=== PATIENT | male | born 1965 | race Caucasian/White ===

== ENCOUNTER 2016-02-27 20:20 | Observation (INO) | payer MEDICAID, MEDICARE ==
[~2016-02-27] VITALS: Ht 170.2 cm; Wt 81.0 kg
[~2016-02-27 20:20] MED LIST: DIAZ10TA PO; DOXA4; METO25CR PO; PRED20 PO
[2016-02-27 20:26] VITALS: BP 157/93; PULSE 89; RESP 16; TEMP 97.9; O2SAT 96
--- NOTE | 2016-02-27 22:25 | PD ---
HPI Chief Complaint: Pain: Acute or Chronic Time Seen by Provider: 22:12 Travel History International Travel<30 days: No Contact w/Intl Traveler<30days: No Traveled to known affect area: No History of Present Illness HPI This is a 50-year-old male smoker with history of hypertension, high cholesterol , tobacco use who presents for evaluation of chest pain. For the past 3 weeks patient has had a midsternal chest pain that radiates into the back. The pain is a sharp pain is worse with movement, inspiration. He has tried using over- the-counter NSAIDs but symptoms persist which prompted evaluation. He endorses dyspnea. He does endorse a slight cough that he has had for 3 months. He denies recent travel, recent surgery. He notes that he was recently incarcerated and was let out of [facility] 6 months ago. He denies any known personal history of coronary artery disease but he doesn't have any sort of outpatient follow-up. Denies any history of PE or DVT. No known history of aortic aneurysm. Denies any calf swelling. He does note positive family history for coronary artery disease with a sister dying of an ME in her 30s. He has no other complaints at this time. PFSH Past Medical History Arthritis: No Asthma: No Autoimmune Disease: No Blood Disorders: No Depression: Yes Heart Rhythm Problems: No Cancer: No Cardiovascular Problems: Yes (HTN) High Cholesterol: No Chest Pain: No Congestive Heart Failure: No COPD: No Cerebrovascular Accident: No Diabetes: No Diminished Hearing: No Endocrine: No Gastrointestinal Disorders: Yes GERD: Yes Genitourinary: Yes (IMPLANTED BLLADDER STIMULATOR) Headaches: Yes Hepatitis: No Hiatal Hernia: No Hypertension: Yes Immune Disorder: No Implanted Vascular Access Dvce: Yes Kidney Stones: No Medical other: Yes (interstitional cystitis) Musculoskeletal: Yes Neurologic: Yes Psychiatric: No Reproductive: No Respiratory: No Integumentary: No Immunizations Current: Yes Migraines: No Renal Failure: No Seizures: No Sleep Apnea: No Thyroid Disease: No Ulcer: No Tetanus Vaccination: < 5 Years Influenza Vaccination: Yes PNEUMOCCOCAL Vaccine (Year): 2 Past Surgical History Abdominal Surgery: Yes AICD: No Arteriovenous Shunt: No Body Medical Devices: BLADDER STIMULATOR Cardiac Surgery: No Ear Surgery: No Endocrine Surgery: No Eye Surgery: No Genitourinary Surgery: Yes (interstitional implant) Gynecologic Surgery: No Insulin Pump: No Joint Replacement: No Neurologic Surgery: No Oral Surgery: Yes (tonsillectomy) Pacemaker: No Thoracic Surgery: No Other Surgery: Yes (RT FOOT, LEFT ELBOW, LEFT THUMB,LEFT LEG) Social History Alcohol Use: Yes (SOCIALLY) Tobacco Use: Yes Substance Use: No Allergies-Medications (Allergen,Severity, Reaction): Coded Allergies: Methadone (Verified Allergy, Severe, NAUSEA AND VOMITING AND RASH, 02/27/16) Celebrex (Verified Allergy, Unknown, UNKNOWN REACTION, 02/27/16) Sulfa (Verified Allergy, Unknown, UNKNOWN REACTION, 02/27/16) Voltaren (Verified Allergy, Unknown, KRAS4FO REACTION, 02/27/16) Codeine (Verified Adverse Reaction, Severe, NAUSEA AND VOMITING, 02/27/16) Penicillin (Verified Adverse Reaction, Severe, NAUSEA AND VOMITING, 02/27/16 ) Reported Meds & Prescriptions Reported Meds & Active Scripts Active Review of Systems Except as stated in HPI: all other systems reviewed are Neg Physical Exam Narrative GENERAL: Well-developed well-nourished male in no acute distress. SKIN: Warm and dry. HEAD: Atraumatic. Normocephalic. EYES: Pupils equal and round. No scleral icterus. No injection or drainage. ENT: No nasal bleeding or discharge. Mucous membranes pink and moist. NECK: Trachea midline. No JVD. CARDIOVASCULAR: Regular rate and rhythm. No murmur appreciated. RESPIRATORY: No accessory muscle use. Clear to auscultation. Breath sounds equal bilaterally. There are no crackles, no wheezing, no rhonchi GASTROINTESTINAL: Abdomen soft, non-tender, nondistended. Hepatic and splenic margins not palpable. MUSCULOSKELETAL: No obvious deformities. There is nonspecific tenderness to palpation along the mid back and mid chest. No focal abnormalities present. There is no lower extremity edema. NEUROLOGICAL: Awake and alert. No obvious cranial nerve deficits. Motor grossly within normal limits. Normal speech. Data Data Last Documented VS Vital Signs Date Time Temp Pulse Resp B/P Pulse Ox O2 Delivery O2 Flow Rate FiO2 02/28/16 01:20 82 16 142/86 96 Room Air 02/27/16 20:26 97.9 Orders Electrocardiogram (02/27/16 22:18) Basic Metabolic Panel (Bmp) (02/27/16 22:18) Ckmb (Isoenzyme) Profile (02/27/16 22:18) Complete Blood Count With Diff (02/27/16 22:18) Magnesium (Mg) (02/27/16 22:18) Prothrombin Time / Inr (Pt) (02/27/16 22:18) Act Partial Throm Time (Ptt) (02/27/16 22:18) Troponin I (02/27/16 22:18) Chest, Single Ap (02/27/16 22:18) Ecg Monitoring (02/27/16 22:18) Bilateral Bp Monitoring (02/27/16 22:18) Iv Access Insert/Monitor (02/27/16 22:18) Oximetry (02/27/16 22:18) Oxygen Administration (02/27/16 22:18) Aspirin Chew (Aspirin Chew) (02/27/16 22:30) Sodium Chloride 0.9% Flush (Ns Flush) (02/27/16 22:30) CKMB (02/27/16 22:30) CKMB% (02/27/16 22:30) Ct Pulmonary Angiogram (02/28/16 22:18) Iohexol 350 Inj (Omnipaque 350 Inj) (02/28/16 00:57) Admit Order (Ed Use Only) (02/28/16 01:23) Activity Bed Rest With Brp (02/28/16 01:23) Vital Signs (Adult) Q4H (02/28/16 01:23) Cardiac Rhythm .As Directed (02/28/16 01:23) ^ Notify Dr: Other .PRN (02/28/16 01:23) ^ Notify DrAdrienne Parameters (02/28/16 01:23) Resp Oxygen Nasal Cannula (02/28/16 ) Ckmb (Isoenzyme) Profile (02/28/16 01:23) Ckmb (Isoenzyme) Profile (02/28/16 04:23) Troponin I (02/28/16 01:23) Troponin I (02/28/16 04:23) Electrocardiogram (02/28/16 01:23) Electrocardiogram (02/28/16 04:23) ^ Obtain (02/28/16 01:23) Sodium Chloride 0.9% Flush (Ns Flush) (02/28/16 01:30) Sodium Chloride 0.9% Flush (Ns Flush) (02/28/16 09:00) Morphine Inj (Morphine Inj) (02/28/16 01:30) Labs Laboratory Tests Test 02/27/16 22:30 White Blood Count 6.9 TH/MM3 Red Blood Count 4.43 MIL/MM3 Hemoglobin 14.1 GM/DL Hematocrit 40.6 % Mean Corpuscular Volume 91.6 FL Mean Corpuscular Hemoglobin 31.7 PG Mean Corpuscular Hemoglobin 34.7 % Concent Red Cell Distribution Width 14.1 % Platelet Count 170 TH/MM3 Mean Platelet Volume 8.2 FL Neutrophils (%) (Auto) 62.2 % Lymphocytes (%) (Auto) 29.4 % Monocytes (%) (Auto) 6.5 % Eosinophils (%) (Auto) 1.0 % Basophils (%) (Auto) 0.9 % Neutrophils # (Auto) 4.3 TH/MM3 Lymphocytes # (Auto) 2.0 TH/MM3 Monocytes # (Auto) 0.4 TH/MM3 Eosinophils # (Auto) 0.1 TH/MM3 Basophils # (Auto) 0.1 TH/MM3 CBC Comment DIFF FINAL Differential Comment Prothrombin Time 10.0 SEC Prothromb Time International 0.9 RATIO Ratio Activated Partial 26.8 SEC Thromboplast Time Sodium Level 137 MEQ/L Potassium Level 3.8 MEQ/L Chloride Level 104 MEQ/L Carbon Dioxide Level 24.8 MEQ/L Anion Gap 8 MEQ/L Blood Urea Nitrogen 16 MG/DL Creatinine 0.88 MG/DL Estimat Glomerular Filtration 91 ML/MIN Rate Random Glucose 111 MG/DL Calcium Level 8.9 MG/DL Magnesium Level 2.2 MG/DL Total Creatine Kinase 104 U/L Creatine Kinase MB LESS THAN 0.5 NG/ML Troponin I LESS THAN 0.02 NG/ML MDM Medical Decision Making Medical Screen Exam Complete: Yes Emergency Medical Condition: Yes Medical Record Reviewed: Yes Interpretation(s) EKG NSR, t wave inversions v1, v2 Chest x-ray wnl CBC wnl BMP wnl CK negative Troponin negative CT pulmonary angiogram CONCLUSION: Normal examination. Differential Diagnosis Pleurisy, costochondritis, pneumothorax, hemothorax, pericarditis, myocarditis, pulmonary embolism, aortic dissection, acute coronary syndrome, angina, bronchitis, pneumonia Narrative Course This is a 50-year-old male smoker with history of high cholesterol, hypertension who presents for evaluation of 3 weeks of chest pain that radiates into the back, dyspnea. Pain is worse with movement, inspiration. He does know that a cough for the past 3 months as well. IV will be established, the patient will be placed on ECG monitoring and pulse oximetry, 12-lead EKG will be pain. Chest x-ray, basic lab work, CT pulmonary angiogram will be ordered to evaluate this patient's symptoms. Full dose aspirin has been ordered. The patient's lab work and imaging studies have been reviewed and found to be reassuring. The patient has had a three-week duration of pain in the chest radiating into the back, certainly atypical for acute coronary syndrome however given his risk factors for cardiac disease, the plan is to admit the patient into the chest pain center for serial cardiac enzymes and rule out purposes. The patient is agreeable. I discussed with my attending who agrees with plan of care. Procedures EKG Prior to Arrival: Yes Diagnosis Primary Impression: Chest pain Qualified Code: R07.9 - Chest pain, unspecified type Admitting Information Admitting Physician Requests: Observation Mando Olivo Feb 27, 2016 22:25
[2016-02-27] MEDS ORDERED: ASPIRIN 81 MG CHEW TAB PO ONE (22:30)
[2016-02-27] MEDS ORDERED: SODIUM CHLORIDE 0.9% FLUSH 5 ML FLUSH IVF PRN (22:30)
[2016-02-27 22:49] LABS: AUTOMATED NEUTROPHIL # 4.3 TH/MM3 (1.8-7.7); BASOPHIL # 0.1 TH/MM3 (0-0.2); BASOPHIL % 0.9 % (0.0-2.0); EOSINOPHIL # 0.1 TH/MM3 (0-0.4); HEMATOCRIT 40.6 % (39.0-51.0); HEMO FLAGS DIFF FINAL; LYMPH % 29.4 % (9.0-44.0); MEAN CELL VOLUME 91.6 FL (80.0-100.0); MEAN CORPUSCULAR HEMOGLOBIN 31.7 PG (27.0-34.0); MEAN CORPUSCULAR HGB CONC 34.7 % (32.0-36.0); MONO % 6.5 % (0.0-8.0); NEUT % 62.2 % (16.0-70.0); PLATELET COUNT 170 TH/MM3 (150-450); RED BLOOD COUNT 4.43 MIL/MM3 (4.50-5.90); RED CELL DISTRIBUTION WIDTH 14.1 % (11.6-17.2); WHITE BLOOD COUNT 6.9 TH/MM3 (4.0-11.0)
--- NOTE | 2016-02-27 22:54 | RADRPT ---
EXAM DATE/TIME: 02/27/2016 22:40 [facility] COMPARISON: No previous studies available for comparison. INDICATIONS : Patient states pain in back and chest for a week. MEDICAL HISTORY : None. SURGICAL HISTORY : None. ENCOUNTER: Initial ACUITY: 1 week PAIN SCORE: 6/10 LOCATION: Bilateral chest FINDINGS: A single view of the chest demonstrates the lungs to be symmetrically aerated without evidence of mas s, infiltrate or effusion. The cardiomediastinal contours are unremarkable. Osseous structures are intact. CONCLUSION: No acute disease. Van Mcnamara MD on February 27, 2016 at 22:52 Board Certified Radiologist. This report was verified electronically.
[2016-02-27 23:03] VITALS: RESP 16
[2016-02-27 23:12] LABS: ANION GAP 8 MEQ/L (5-15); BICARBONATE 24.8 MEQ/L (21.0-32.0); BLOOD UREA NITROGEN 16 MG/DL (7-18); CHLORIDE 104 MEQ/L (98-107); GLOMERULAR FILTRATION RATE 91 ML/MIN (>89); MAGNESIUM 2.2 MG/DL (1.5-2.5); POTASSIUM 3.8 MEQ/L (3.5-5.1); SODIUM (NA) 137 MEQ/L (136-145)
[2016-02-27 23:16] LABS: APTT (PATIENT) 26.8 SEC (24.3-30.1); INTERNATIONAL NORMALIZED RATIO 0.9 RATIO
[2016-02-27 23:17] LABS: CREATINE KINASE 104 U/L (39-308)
[2016-02-27 23:29] LABS: CKMB LESS THAN 0.5 NG/ML (0.5-3.6)
[2016-02-28] MEDS ORDERED: IOHEXOL 350 MG/ML 10 ML VIAL (for RAD DIAG) IV ONE (00:57)
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
[2016-02-28 01:20] VITALS: BP 142/86; PULSE 82; RESP 16; O2SAT 96
[2016-02-28] MEDS ORDERED: MORPHINE SULFATE 4 MG/ML INJ IV PUSH ONE (01:30)
[2016-02-28] MEDS ORDERED: SODIUM CHLORIDE 0.9% FLUSH 5 ML FLUSH IVF PRN (01:30)
[2016-02-28 02:14] LABS: CREATINE KINASE 89 U/L (39-308)
[2016-02-28 02:28] VITALS: O2SAT 96
[2016-02-28 04:52] LABS: CREATINE KINASE 90 U/L (39-308)
[2016-02-28 05:02] VITALS: BP 124/83; PULSE 86; RESP 18; O2SAT 97
[2016-02-28 07:00] VITALS: BP 119/79; PULSE 87; RESP 16; TEMP 98.2; O2SAT 98
[2016-02-28 08:16] VITALS: O2SAT 97
[2016-02-28] MEDS ORDERED: SODIUM CHLORIDE 0.9% FLUSH 5 ML FLUSH IVF SCH (09:00)
[2016-02-28] MEDS ORDERED: CYCL1TAB29 PO (10:19)
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
[2016-02-28] MEDS ORDERED: CYCLOBENZAPRINE HCL 10 MG TAB PO ONE (10:30)
[2016-02-28 11:04] VITALS: BP 127/78
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
--- NOTE | 2016-02-28 13:15 | EKG ---
Date Performed: 02/28/2016 Time Performed: 04:14:59 PTAGE: 50 years EKG: NORMAL Sinus rhythm PREVIOUS TRACING : 02/28/2016 01.32 Since previous tracing, no significant change noted DOCTOR: Victoriano Delgado Interpretating Date/Time 02/28/2016 13:14:00
--- NOTE | 2016-02-28 13:17 | EKG ---
Date Performed: 02/28/2016 Time Performed: 01:32:20 PTAGE: 50 years EKG: NORMAL Sinus rhythm PREVIOUS TRACING : 02/27/2016 22.31 Since previous tracing, no significant change noted DOCTOR: Victoriano Delgado Interpretating Date/Time 02/28/2016 13:16:25
--- NOTE | 2016-02-28 13:18 | EKG ---
Date Performed: 02/27/2016 Time Performed: 22:31:24 PTAGE: 50 years EKG: Sinus rhythm POSSIBLE LEFT ATRIAL ENLARGEMENT BORDERLINE ECG PREVIOUS TRACING : 02/27/2016 22.29 Since previous tracing, no significant change noted DOCTOR: Victoriano Delgado Interpretating Date/Time 02/28/2016 13:18:09
== END 2016-02-28 11:17 | disposition home or self-care (01) ==
LOC: NEPB 20:20 → NEDA 02-28 01:25
PROVIDERS: ADMIT Internal Medicine Interventional Cardiology; ATTEND Internal Medicine Interventional Cardiology
DX: R07.9 Chest pain, unspecified (principal); F17.200 Nicotine dependence, unspecified, uncomplicated; I10 Essential (primary) hypertension; E78.00 Pure hypercholesterolemia, unspecified; R06.00 Dyspnea, unspecified; R05 Cough; K21.9 Gastro-esophageal reflux disease without esophagitis
CPT/HCPCS: 71010; 71275; 80048; 82550; 82552; 83735; 84484; 85025; 85610; 85730; 93005; 99285; G0378; J2270; Q9967

== ENCOUNTER 2016-07-20 19:07 | Inpatient (IN) | payer MEDICARE, MEDICAID ==
[~2016-07-20] VITALS: Ht 170.2 cm; Wt 84.9 kg
[~2016-07-20 19:07] MED LIST changes: +CYCL1TAB29 PO; -DIAZ10TA PO; -DOXA4; -METO25CR PO; -PRED20 PO
[2016-07-20 19:21] VITALS: BP 128/82; PULSE 116; RESP 18; TEMP 102; O2SAT 98
[2016-07-20 19:50] VITALS: BP 128/82; PULSE 116; RESP 18; TEMP 102; O2SAT 98
--- NOTE | 2016-07-20 20:03 | PD ---
HPI Chief Complaint: Foreign Body Time Seen by Provider: 19:59 Travel History International Travel<30 days: No Contact w/Intl Traveler<30days: No Traveled to known affect area: No History of Present Illness HPI The patient is a 51-year-old male that complains of pain slight swelling in the left forearm for 3 days. He states he may have got a piece of metal in the left forearm. He said it formed an abscess and he squeezed the pus out of it. He has cellulitis surrounding the area. Of the left forearm dorsally. His right lower leg has been swelling for over 2 months. He states it just won't heal. He does have a history of cocaine, benzodiazepine and opiate abuse. He does not drink alcohol and does not have a history of diabetes. PFSH Past Medical History Arthritis: No Asthma: No Autoimmune Disease: No Blood Disorders: No Depression: Yes Heart Rhythm Problems: No Cancer: No Cardiovascular Problems: Yes (HTN) High Cholesterol: No Chest Pain: No Congestive Heart Failure: No COPD: No Cerebrovascular Accident: No Diabetes: No Diminished Hearing: No Endocrine: No Gastrointestinal Disorders: Yes GERD: Yes Genitourinary: Yes (IMPLANTED BLLADDER STIMULATOR) Headaches: Yes Hepatitis: No Hiatal Hernia: No Hypertension: Yes Immune Disorder: No Implanted Vascular Access Dvce: Yes Kidney Stones: No Musculoskeletal: Yes Neurologic: Yes Psychiatric: No Reproductive: No Respiratory: No Integumentary: No Immunizations Current: Yes Migraines: No Renal Failure: No Seizures: No Sleep Apnea: No Thyroid Disease: No Ulcer: No PNEUMOCCOCAL Vaccine (Year): 2 Past Surgical History Abdominal Surgery: Yes AICD: No Arteriovenous Shunt: No Body Medical Devices: BLADDER STIMULATOR Cardiac Surgery: No Ear Surgery: No Endocrine Surgery: No Eye Surgery: No Genitourinary Surgery: Yes (interstitional implant) Gynecologic Surgery: No Insulin Pump: No Joint Replacement: No Neurologic Surgery: No Oral Surgery: Yes (tonsillectomy) Pacemaker: No Thoracic Surgery: No Other Surgery: Yes (RT FOOT, LEFT ELBOW, LEFT THUMB,LEFT LEG) Social History Alcohol Use: Yes (SOCIALLY) Tobacco Use: Yes Substance Use: No Allergies-Medications (Allergen,Severity, Reaction): Coded Allergies: Methadone (Verified Allergy, Severe, NAUSEA AND VOMITING AND RASH, 02/27/16) Celebrex (Verified Allergy, Unknown, UNKNOWN REACTION, 02/27/16) Sulfa (Verified Allergy, Unknown, UNKNOWN REACTION, 02/27/16) Voltaren (Verified Allergy, Unknown, [id number] REACTION, 02/27/16) Codeine (Verified Adverse Reaction, Severe, NAUSEA AND VOMITING, 02/27/16) Penicillin (Verified Adverse Reaction, Severe, NAUSEA AND VOMITING, 02/27/16 ) Reported Meds & Prescriptions Reported Meds & Active Scripts Active Reported Amitriptyline (Amitriptyline HCl) 25 Mg Tab 25 Mg PO HS Wellbutrin Xl 24 HR (Bupropion HCl) 150 Mg Tab 150 Mg PO DAILY Valium (Diazepam) 10 Mg Tab 10 Mg PO BID PRN Review of Systems Except as stated in HPI: all other systems reviewed are Neg Physical Exam Narrative GENERAL: Well-nourished, well-developed patient in moderate apparent distress with his left forearm discomfort. His vital signs show temperature 102, heart rate of 116, blood pressure 128/82 but otherwise normal. SKIN: Focused skin assessment warm/dry. HEAD: Normocephalic. EYES: No scleral icterus. No injection or drainage. NECK: Supple, trachea midline. No JVD or lymphadenopathy. CARDIOVASCULAR: Regular rate and rhythm without murmurs, gallops, or rubs. RESPIRATORY: Breath sounds equal bilaterally. No accessory muscle use. GASTROINTESTINAL: Abdomen soft, non-tender, nondistended. MUSCULOSKELETAL: No cyanosis, or edema. BACK: Nontender without obvious deformity. No CVA tenderness. Data Data Last Documented VS Vital Signs Date Time Temp Pulse Resp B/P Pulse Ox O2 Delivery O2 Flow Rate FiO2 07/20/16 20:39 91 18 126/87 98 Room Air 07/20/16 19:50 102.0 Orders Forearm (2vws) (07/20/16 20:00) Tibia/Fibula (Ap/Lat) (07/20/16 20:00) Complete Blood Count With Diff (07/20/16 20:07) Comprehensive Metabolic Panel (07/20/16 20:07) Lactic Acid Sepsis Protocol (07/20/16 20:07) Urinalysis - C+S If Indicated (07/20/16 20:07) Blood Culture (07/20/16 20:07) Wound Culture And Gram Stain (07/20/16 20:07) Chest, Pa & Lat (07/20/16 20:07) Ecg Monitoring (07/20/16 20:07) Iv Access Insert/Monitor (07/20/16 20:07) Oximetry (07/20/16 20:07) Oxygen Administration (07/20/16 20:07) Sodium Chlor 0.9% 1000 Ml Inj (Ns 1000 M (07/20/16 20:07) Sodium Chlor 0.9% 1000 Ml Inj (Ns 1000 M (07/20/16 20:07) Sodium Chlor 0.9% 1000 Ml Inj (Ns 1000 M (07/20/16 20:07) Drug Screen, Random Urine (07/20/16 20:07) Vancomycin Inj (Vancomycin Inj) (07/20/16 21:45) Vancomycin Inj (Vancomycin Inj) (07/20/16 21:45) Ketorolac Inj (Toradol Inj) (07/20/16 21:45) Admit Order (Ed Use Only) (07/20/16 21:46) Vancomycin Consult Pharmacy (Vancomycin (07/20/16 21:45) Admit To Inpatient (07/20/16 ) Vital Signs (Adult) Q4H (07/20/16 21:44) Activity Oob Ad Jannet (07/20/16 21:44) Arborist / Telemetry .CONTINUOUS (07/20/16 21:44) Diet Regular Basic (07/21/16 Breakfast) Sodium Chlor 0.9% 1000 Ml Inj (Ns 1000 M (07/20/16 21:44) Sodium Chloride 0.9% Flush (Ns Flush) (07/20/16 21:45) Sodium Chloride 0.9% Flush (Ns Flush) (07/21/16 09:00) Ondansetron Inj (Zofran Inj) (07/20/16 21:45) Comprehensive Metabolic Panel (07/21/16 06:00) Complete Blood Count With Diff (07/21/16 06:00) Mechanical Contraindication (07/20/16 21:44) Acetaminophen (Tylenol) (07/20/16 21:45) Morphine Inj (Morphine Inj) (07/20/16 21:45) Docusate Sodium-Senna (Mindy-Colace) (07/21/16 09:00) Magnesium Hydroxide Liq (Milk Of Magnesi (07/20/16 21:45) Sennosides (Senokot) (07/20/16 21:45) Bisacodyl Supp (Dulcolax Supp) (07/20/16 21:45) Lactulose Liq (Lactulose Liq) (07/20/16 21:45) Inpatient Certification (07/20/16 ) Labs Laboratory Tests Test 07/20/16 07/20/16 20:20 21:00 White Blood Count 13.0 TH/MM3 Red Blood Count 4.04 MIL/MM3 Hemoglobin 12.7 GM/DL Hematocrit 36.5 % Mean Corpuscular Volume 90.4 FL Mean Corpuscular Hemoglobin 31.4 PG Mean Corpuscular Hemoglobin 34.7 % Concent Red Cell Distribution Width 13.1 % Platelet Count 139 TH/MM3 Mean Platelet Volume 8.1 FL Neutrophils (%) (Auto) 84.5 % Lymphocytes (%) (Auto) 9.6 % Monocytes (%) (Auto) 4.9 % Eosinophils (%) (Auto) 0.1 % Basophils (%) (Auto) 0.9 % Neutrophils # (Auto) 11.1 TH/MM3 Lymphocytes # (Auto) 1.2 TH/MM3 Monocytes # (Auto) 0.6 TH/MM3 Eosinophils # (Auto) 0.0 TH/MM3 Basophils # (Auto) 0.1 TH/MM3 CBC Comment DIFF FINAL Differential Comment Sodium Level 135 MEQ/L Potassium Level 3.9 MEQ/L Chloride Level 103 MEQ/L Carbon Dioxide Level 24.4 MEQ/L Anion Gap 8 MEQ/L Blood Urea Nitrogen 7 MG/DL Creatinine 1.00 MG/DL Estimat Glomerular Filtration 78 ML/MIN Rate Random Glucose 112 MG/DL Lactic Acid Level 1.1 mmol/L Calcium Level 8.6 MG/DL Total Bilirubin 0.6 MG/DL Aspartate Amino Transf 26 U/L (AST/SGOT) Alanine Aminotransferase 28 U/L (ALT/SGPT) Alkaline Phosphatase 128 U/L Total Protein 7.6 GM/DL Albumin 3.6 GM/DL Urine Color YELLOW Urine Turbidity CLEAR Urine pH 5.5 Urine Specific [place] 1.004 Urine Protein NEG mg/dL Urine Glucose (UA) NEG mg/dL Urine Ketones NEG mg/dL Urine Occult Blood TRACE Urine Nitrite NEG Urine Bilirubin NEG Urine Leukocyte Esterase NEG Urine RBC 0-3 /hpf Urine Squamous Epithelial 0-5 /hpf Cells Microscopic Urinalysis Comment CULT NOT INDICATED Urine Opiates Screen NEG Urine Barbiturates Screen NEG Urine Amphetamines Screen NEG Urine Benzodiazepines Screen POS Urine Cocaine Screen NEG Urine Cannabinoids Screen NEG MDM Medical Decision Making Medical Screen Exam Complete: Yes Emergency Medical Condition: Yes Medical Record Reviewed: Yes Differential Diagnosis Cellulitis forearm, foreign body forearm, abscess forearm, compartment syndrome forearm Narrative Course The patient has no foreign body in the forearm. He does have a cellulitis there. No abscesses palpated at this time. The patient has considerable tension on the skin. He has good capillary refill, motor activity of the hand and pinprick sensation distally but there is still a possibility of a compartment syndrome developing in this patient. Sepsis Criteria SIRS Criteria (2 or more): Temp > 100.9 or < 96.8, Heart rate over 90, WBC > 50097, < 4000 or > 10% bands Sepsis Criteria (SIRS+source): Infect source susp/known Diagnosis Primary Impression: Cellulitis of left forearm Additional Impression: Abscess of left forearm Admitting Information Admitting Physician Requests: Admit Condition: Stable Edwin Quispe MD July 20, 2016 20:03
[2016-07-20] MEDS ORDERED: SODIUM CHLOR 0.9% 1000 ML INJ 400 ML IV ONE (20:07)
[2016-07-20] MEDS ORDERED: SODIUM CHLOR 0.9% 1000 ML INJ 1,000 ML IV ONE ×2 (20:07)
[2016-07-20 20:13] VITALS: RESP 18; O2SAT 98
[2016-07-20 20:39] VITALS: BP 126/87; PULSE 91; RESP 18; O2SAT 98
[2016-07-20 20:42] LABS: CHLORIDE 103 MEQ/L (98-107); POTASSIUM 3.9 MEQ/L (3.5-5.1); SODIUM (NA) 135 MEQ/L (136-145)
[2016-07-20 20:46] LABS: ANION GAP 8 MEQ/L (5-15); BICARBONATE 24.4 MEQ/L (21.0-32.0); BLOOD UREA NITROGEN 7 MG/DL (7-18)
[2016-07-20 20:49] LABS: ALT (GPT) 28 U/L (12-78); AST (GOT) 26 U/L (15-37); GLOMERULAR FILTRATION RATE 78 ML/MIN (>89)
[2016-07-20 20:50] LABS: TOTAL BILIRUBIN ADULT 0.6 MG/DL (0.2-1.0)
[2016-07-20 20:51] LABS: AUTOMATED NEUTROPHIL # 11.1 TH/MM3 (1.8-7.7); BASOPHIL # 0.1 TH/MM3 (0-0.2); BASOPHIL % 0.9 % (0.0-2.0); EOSINOPHIL % 0.1 % (0.0-4.0); HEMATOCRIT 36.5 % (39.0-51.0); HEMO FLAGS DIFF FINAL; LYMPH % 9.6 % (9.0-44.0); LYMPHOCYTE # 1.2 TH/MM3 (1.0-4.8); MEAN CELL VOLUME 90.4 FL (80.0-100.0); MEAN CORPUSCULAR HEMOGLOBIN 31.4 PG (27.0-34.0); MEAN CORPUSCULAR HGB CONC 34.7 % (32.0-36.0); MONO % 4.9 % (0.0-8.0); NEUT % 84.5 % (16.0-70.0); PLATELET COUNT 139 TH/MM3 (150-450); RED BLOOD COUNT 4.04 MIL/MM3 (4.50-5.90); RED CELL DISTRIBUTION WIDTH 13.1 % (11.6-17.2)
[2016-07-20 20:52] LABS: ALKALINE PHOSPHATASE 128 U/L (45-117)
--- NOTE | 2016-07-20 21:07 | RADHPO ---
EXAM DATE/TIME: 07/20/2016 20:44 [facility] COMPARISON: No previous studies available for comparison. INDICATIONS : Fever. Congestion. MEDICAL HISTORY : None. SURGICAL HISTORY : None. ENCOUNTER: Initial ACUITY: 4 - 6 days PAIN SCORE: 7/10 LOCATION: Bilateral chest FINDINGS: PA and lateral views of the chest demonstrate the lungs to be symmetrically aerated without evidence of mass, infiltrate or effusion. The cardiomediastinal contours are unremarkable. Osseous structure s are intact. CONCLUSION: No acute disease. Compa Grant MD FACR on July 20, 2016 at 21:05 Board Certified Radiologist. This report was verified electronically.
--- NOTE | 2016-07-20 21:08 | RADHPO ---
EXAM DATE/TIME: 07/20/2016 20:34 [facility] COMPARISON: No previous studies available for comparison. INDICATIONS : Wound to right lower tibia. Infection. MEDICAL HISTORY : None. SURGICAL HISTORY : None. ENCOUNTER: Initial ACUITY: 4 - 6 days PAIN SCORE: 6/10 LOCATION: Right lateral FINDINGS: Two view examination of the right tibia demonstrates no evidence of fracture or dislocation. Bony mi neralization is normal. The soft tissue structures are intact. CONCLUSION: Negative for radiopaque foreign body or osteomyelitis. Compa Grant MD FACR on July 20, 2016 at 21:06 Board Certified Radiologist. This report was verified electronically.
--- NOTE | 2016-07-20 21:09 | RADHPO ---
EXAM DATE/TIME: 07/20/2016 20:40 [facility] COMPARISON: No previous studies available for comparison. INDICATIONS : Wound to proximal left forearm. Infection. MEDICAL HISTORY : None. SURGICAL HISTORY : None. ENCOUNTER: Initial ACUITY: 4 - 6 days PAIN SCORE: 9/10 LOCATION: Left upper extremity FINDINGS: Two view examination of the left forearm demonstrates no evidence of fracture or dislocation. Bony m ineralization is normal. The soft tissue structures are intact. CONCLUSION: Negative for radiopaque foreign body. Compa Grant MD FACR on July 20, 2016 at 21:07 Board Certified Radiologist. This report was verified electronically.
[2016-07-20 21:32] LABS: BLOOD, URINE TRACE (NEG); GLUCOSE,URINE NEG (NEG); KETONE, URINE NEG (NEG); NITRITE,URINE NEG (NEG); PH, URINE 5.5 (5.0-8.5)
[2016-07-20 21:41] LABS: AMPHETAMINE, URINE NEG (NEG); BARBITURATES, URINE NEG (NEG)
[2016-07-20] MEDS ORDERED: BISACODYL 10 MG SUPP RECTAL PRN (21:45)
[2016-07-20] MEDS ORDERED: VANCOMYCIN INJ 1,550 MG in SODIUM CHLORID 0.9% 500 ML INJ 500 ML IV ONE (21:45)
[2016-07-20] MEDS ORDERED: MAGNESIUM HYDROXIDE SUSP 30 ML CUP PO PRN (21:45)
[2016-07-20] MEDS ORDERED: Vancomycin Consult Pharmacy 1 EA OTHER SCH (21:45)
[2016-07-20] MEDS ORDERED: KETOROLAC TROMETHAMINE 60 MG/2 ML (IM) VIAL IVP ONE (21:45)
[2016-07-20] MEDS ORDERED: SENNOSIDES 8.6 MG TAB PO PRN (21:45)
[2016-07-20] MEDS ORDERED: VANCOMYCIN INJ 1,500 MG in SODIUM CHLORID 0.9% 500 ML INJ 500 ML IV ONE (21:45)
[2016-07-20] MEDS ORDERED: ONDANSETRON HCL 4 MG/2 ML VIAL IVP PRN (21:45)
[2016-07-20 21:46] LABS: COMMENT (UR) CULT NOT INDICATED; CULTURE IF INDICATED CULT NOT INDICATED; RBC, URINE 0-3 /hpf (0-3); SQUAMOUS EPITHELIAL CELL URINE 0-5 /hpf (0-5); URINE COLOR YELLOW (YELLW/STRAW)
[2016-07-20] MEDS: SODIUM CHLOR 0.9% 1000 ML INJ 1,000 ML IV SCH (21:52)
[2016-07-20 21:54] LABS: COCAINE, URINE NEG (NEG)
[2016-07-20 23:00] VITALS: BP 122/80; PULSE 98; RESP 18; TEMP 98.6; O2SAT 98
[2016-07-20] MEDS: ACETAMINOPHEN 325 MG TAB PO PRN (23:03)
[2016-07-20 23:30] VITALS: PULSE 88
[2016-07-20] MEDS ORDERED: BUPR150XL PO (23:31)
[2016-07-20] MEDS ORDERED: DIAZ10 PO (23:31)
[2016-07-20] MEDS ORDERED: AMIT25TA9 PO (23:31)
[2016-07-20] MEDS: MORPHINE SULFATE 4 MG/ML INJ IV PRN (23:51)
[2016-07-21] VITALS (7 sets, daily range): BP systolic 113–151; BP diastolic 68–87; PULSE 76–102; RESP 16–20; TEMP 97.1–100.5; O2SAT 95–99
[2016-07-21] MEDS: MORPHINE SULFATE 4 MG/ML INJ IV PRN ×5 (05:05→23:35)
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
[2016-07-21 07:30] LABS: AUTOMATED NEUTROPHIL # 10.2 TH/MM3 (1.8-7.7); BASOPHIL % 0.1 % (0.0-2.0); EOSINOPHIL # 0.1 TH/MM3 (0-0.4); EOSINOPHIL % 0.5 % (0.0-4.0); HEMATOCRIT 34.1 % (39.0-51.0); LYMPH % 9.8 % (9.0-44.0); LYMPHOCYTE # 1.2 TH/MM3 (1.0-4.8); MEAN CELL VOLUME 92.2 FL (80.0-100.0); MEAN CORPUSCULAR HEMOGLOBIN 31.1 PG (27.0-34.0); MEAN CORPUSCULAR HGB CONC 33.7 % (32.0-36.0); NEUT % 84.6 % (16.0-70.0); PLATELET COUNT 118 TH/MM3 (150-450); RED CELL DISTRIBUTION WIDTH 13.5 % (11.6-17.2); WHITE BLOOD COUNT 12.1 TH/MM3 (4.0-11.0)
[2016-07-21 07:39] LABS: HEMO FLAGS DIFF FINAL
[2016-07-21 07:41] LABS: CHLORIDE 108 MEQ/L (98-107); SODIUM (NA) 140 MEQ/L (136-145)
[2016-07-21 08:10] LABS: ALKALINE PHOSPHATASE 126 U/L (45-117); ALT (GPT) 27 U/L (12-78); ANION GAP 7 MEQ/L (5-15); AST (GOT) 26 U/L (15-37); BICARBONATE 25.5 MEQ/L (21.0-32.0); BLOOD UREA NITROGEN 9 MG/DL (7-18); GLOMERULAR FILTRATION RATE 94 ML/MIN (>89)
[2016-07-21] MEDS: DOCUSATE SODIUM 50 MG/SENNA 8.6 MG TAB PO SCH ×2 (08:21→20:07)
[2016-07-21] MEDS: SODIUM CHLOR 0.9% 1000 ML INJ 1,000 ML IV SCH ×3 (08:24→20:08)
[2016-07-21] MEDS: SODIUM CHLORIDE 0.9% FLUSH 10 ML FLUSH IV FLUSH SCH ×2 (08:25→20:07)
[2016-07-21 08:47] LABS: CREATINE KINASE 79 U/L (39-308)
[2016-07-21] MEDS ORDERED: ENOXAPARIN SODIUM 40 MG/0.4 ML SYRINGE SQ SCH (09:00)
[2016-07-21] MEDS: NICOTINE 21 MG/24 HR PATCH T-DERMAL SCH (10:43)
[2016-07-21] MEDS ORDERED: IOHEXOL 350 MG/ML 10 ML VIAL (for RAD DIAG) IV ONE (11:48)
[2016-07-21] MEDS: ACETAMINOPHEN 325 MG TAB PO PRN ×2 (12:08→23:33)
--- NOTE | 2016-07-21 12:09 | RADHPO ---
EXAM DATE/TIME: 07/21/2016 11:16 [place] COMPARISON: FOREARM LEFT (2VWS), July 20, 2016, 20:40. INDICATIONS : Left proximal forearm cellulitis. IV CONTRAST: 90 cc Omnipaque 350 (iohexol) IV RADIATION DOSE: 23.60 CTDIvol (mGy) MEDICAL HISTORY : Hypertension. Gastroesophageal reflux disease. SURGICAL HISTORY : Implanted bladder stimulator. ENCOUNTER: Initial ACUITY: 4 - 6 days PAIN SCALE: 10/10 LOCATION: Left forearm TECHNIQUE: Volumetric scanning of the forearm was performed. Using automated exposure control and adjustment of the mA and/or kV according to patient size, radiation dose was kept as low as reasonably achievable to obtain optimal diagnostic quality images. FINDINGS: BONES: No fracture or dislocation is identified. Mineralization is within normal limits. No erosions or vishnu osteal reaction is seen. JOINTS: No evidence of joint narrowing or effusion. SOFT TISSUES: There is severe subcutaneous edema along the entire length of the forearm but more severe in the mid to proximal aspect. A primarily involves the medial aspect and anterior and posterior regions. Latera l aspect is spared. There is associated skin thickening. In the subcutaneous edema appears to spare t he deeper fascial planes. No abscess is identified. Muscles demonstrate no definite abnormality. CONCLUSION: 1. Severe subcutaneous edema along the medial aspect of the forearm and also involving the anterior a nd posterior aspects to some extent. There is associated skin thickening. This pattern is suggestive of a severe cellulitis. No abscess or drainable fluid collection is visualized. 2. The bones and muscles demonstrate no definite abnormality. Van Barber MD on July 21, 2016 at 12:03 Board Certified Radiologist. This report was verified electronically.
[2016-07-21] MEDS ORDERED: PROPOFOL 200 MG/20 ML AMP IV ONE (12:19)
[2016-07-21] MEDS ORDERED: ONDANSETRON HCL 4 MG/2 ML VIAL IV PUSH ONE (12:19)
[2016-07-21] MEDS: VANCOMYCIN INJ 1,200 MG in SODIUM CHLOR 0.9% 250 ML INJ 250 ML IV SCH ×2 (12:26→23:33)
[2016-07-21] MEDS ORDERED: NEOMYCIN/POLYMYXIN 1 ML G.U. IRRIGANT IRRIGATION ONE (12:29)
[2016-07-21] MEDS ORDERED: fentaNYL CITRATE 250 MCG/5 ML AMP ONE (13:35)
[2016-07-21] MEDS ORDERED: BUPIVACAINE HCL PF 0.5% 30 ML VIAL ONE (13:39)
[2016-07-21] MEDS ORDERED: LIDOCAINE HCL 2% 50 ML VIAL ONE (13:39)
[2016-07-21] MEDS ORDERED: MEPERIDINE HCL 25 MG/ML VIAL ONE (15:44)
[2016-07-21] MEDS ORDERED: MORPHINE SULFATE 10 MG/ML INJ ONE ×2 (15:44→16:11)
[2016-07-21] MEDS ORDERED: HYDROmorphone HCL PF 1 MG/ML VIAL ONE (16:19)
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
--- NOTE | 2016-07-21 17:12 | MP ---
cc: TARI VORA MD DATE OF SURGERY 07/21/2016 PREOPERATIVE DIAGNOSIS Infection left forearm with impending compartment syndrome. POSTOPERATIVE DIAGNOSIS Infection and cellulitis left forearm with impending compartment syndrome. PROCEDURE Exploration, forearm fasciotomies both volar and extensor compartments left forearm. SURGEON Dr. Vora. ANESTHESIA General. ESTIMATED BLOOD LOSS About 25 cc. TOURNIQUET TIME 44 minutes at 250 mmHg. SPECIMEN Sent for culture and sensitivity. The patient was recovered and sent to the recovery room in stable condition. INDICATION The patient is a 51-year-old right-hand dominant male who presented with complaint of pain and swelling over the left forearm. He gave a history of a splinter over the left forearm about 5 days ago. He noticed pain, swelling and drainage from the region. He was admitted last night to the ER with worsening pain involving the left forearm. He also complained of worsening pain with finger range of motion. The patient had history of C-spine injury and has had numbness involving the left hand since then. Clinically the patient had draining sinus over the dorsal lateral aspect of the forearm. He had tenderness over the extensor compartment and along the flexor compartment along the ulnar aspect in the proximal and mid forearm. Range of motion of the finger was associated with pain. He had intact distal circulation. He had decreased sensation from previous C-spine injury. The patient was consented for incision and drainage, possible compartment release of the left forearm. He had an elevated white count and CT scan showed diffuse soft tissue edema. DETAILS OF PROCEDURE The patient was brought to the operating room. Under general anesthesia the left upper extremity was thoroughly prepped and draped. Incision site was marked over the volar ulnar aspect of the proximal and mid forearm measuring about 10-12 cm. Another incision site was marked over the extensor compartment measuring about 7-8 cm. After limb elevation tourniquet was inflated to 250 mmgh. Incision was then made over the proposed incision site. There was extensive soft tissue subcutaneous edema. Material was obtained for culture and sensitivity. There was also evidence of necrotic material within the subcutaneous tissues which was debrided. The volar compartment was then released using a bovie, following which there was bulging of the compartment muscles. The compartment muscles appeared to be viable. No Necrotic muscle was noted. Bleeding points were cauterized with bipolar cautery. The superficial volar compartment was released all the way to the distal forearm. Attention was then directed to the extensor compartment. Incision was then made over the proposed incision site. On exploration there was extensive inflammatory tissue and necrotic tissue involving the subcutaneous tissue which was debrided. Material was obtained for culture and sensitivity. The extensor compartment was then released over the proximal mid forearm. Bulging of the compartment muscles noted. No evidence of necrotic muscle was noted. The muscle was viable and flickered to stimulation. Bleeding points were cauterized with bipolar cautery. Thorough wash was given initially with normal saline mixed with hydrogen peroxide. This was then followed by normal saline mixed with irrigant. Tourniquet was deflated. Total tourniquet time was 44 minutes. He had good distal circulation at the end of the procedure. He had good palpable pulses and he had good saturation. Bleeding points were cauterized with bipolar cautery. Wound VAC was applied both on the volar and extensor compartment which was then bridged with connecting bridge. It was set to continuous low intensity VAC therapy. A sterile dressing was then applied over the region which was held in place by Sof-Rol and bias hand wrap. The patient was recovered and sent to the recovery room in stable condition. The plan will be to bring the patient for wound VAC change and partial closure. Tari Vora MD SE/EULA /3:44 PM /4:50 PM [facility]
[2016-07-21] MEDS ORDERED: ACETAMINOPHEN 1000 MG/100 ML VIAL IV ONE (17:29)
[2016-07-22] VITALS (7 sets, daily range): BP systolic 101–159; BP diastolic 59–86; PULSE 86–103; RESP 18–21; TEMP 98.1–102; O2SAT 93–99
[2016-07-22] MEDS: MORPHINE SULFATE 4 MG/ML INJ IV PRN ×5 (02:56→20:13)
[2016-07-22] MEDS: SODIUM CHLOR 0.9% 1000 ML INJ 1,000 ML IV SCH (05:56)
[2016-07-22] MEDS: ACETAMINOPHEN 325 MG TAB PO PRN ×2 (05:56→15:29)
[2016-07-22] MEDS: NICOTINE 21 MG/24 HR PATCH T-DERMAL SCH (08:33)
[2016-07-22] MEDS: DOCUSATE SODIUM 50 MG/SENNA 8.6 MG TAB PO SCH ×3 (08:33→20:14)
[2016-07-22] MEDS: SODIUM CHLORIDE 0.9% FLUSH 10 ML FLUSH IV FLUSH SCH ×2 (08:34→20:14)
[2016-07-22] MEDS: REMOVE OLD PATCH T-DERMAL SCH (09:00)
[2016-07-22] MEDS ORDERED: CEFEPIME INJ 2,000 MG in SODIUM CHLORIDE 0.9% INJ 100 ML IV SCH (09:00)
[2016-07-22] MEDS ORDERED: PHARMACY ORDERED LAB ONE (11:45)
[2016-07-22] MEDS: VANCOMYCIN INJ 1,200 MG in SODIUM CHLOR 0.9% 250 ML INJ 250 ML IV SCH (12:53)
[2016-07-22] MEDS ORDERED: ONDANSETRON HCL 4 MG/2 ML VIAL IV PUSH ONE (12:58)
[2016-07-22] MEDS ORDERED: PROPOFOL 200 MG/20 ML AMP IV ONE (12:58)
[2016-07-22] MEDS ORDERED: NEOMYCIN/POLYMYXIN 1 ML G.U. IRRIGANT IRRIGATION ONE (12:59)
[2016-07-22] MEDS ORDERED: MORPHINE SULFATE 4 MG/ML INJ IV PUSH PRN (13:30)
[2016-07-22] MEDS ORDERED: LIDOCAINE HCL 2% 50 ML VIAL ONE (15:12)
[2016-07-22] MEDS ORDERED: BUPIVACAINE HCL PF 0.5% 30 ML VIAL ONE (15:12)
[2016-07-22] MEDS ORDERED: ceFAZolin INJ 1,000 MG VIAL ONE (16:10)
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
[2016-07-22] MEDS ORDERED: BACITRACIN TOP OINT 15 GM TUBE ONE (16:52)
[2016-07-22] MEDS ORDERED: LACTATED RINGER'S 1000 ML INJ 1,000 ML ONE (17:08)
--- NOTE | 2016-07-22 17:26 | PD.OP ---
Operative Report Preoperative Diagnosis: (1) Cellulitis of left forearm (2) Abscess of left forearm (3) Compartment syndrome of left upper extremity Postoperative Diagnosis: (1) Cellulitis of left forearm (2) Abscess of left forearm (3) Compartment syndrome of left upper extremity Procedure: exploration, excisional debridement skin, subcutaneous tissue, fascia and muscles and partial closure left forearm Anesthesia: general Surgeon: Tushar Ahn Manager Of Enterprise(s): alfonso Operation and Findings: minimal necrotic and devitalized tissue involving the skin, subcutaneous tissue , fascia and muscles which were debrided and partial closure of the wound with vessel loops left forearm Tushar Ahn MD July 22, 2016 17:26
[2016-07-22] MEDS ORDERED: fentaNYL CITRATE 250 MCG/5 ML AMP ONE (17:29)
[2016-07-22] MEDS ORDERED: MIDAZOLAM HCL 2 MG/2 ML VIAL ONE (17:29)
[2016-07-22] MEDS: ceFAZolin 2 GM PREMIX 50 ML IV SCH (17:40)
[2016-07-22] MEDS: CLINDAMYCIN INJ 900 MG in SODIUM CHLORIDE 0.9% INJ 100 ML IV SCH (18:00)
[2016-07-22] MEDS ORDERED: HYDROmorphone HCL PF 1 MG/ML VIAL ONE (18:08)
--- NOTE | 2016-07-22 19:30 | MP ---
cc: TARI VORA MD DATE OF SURGERY: 07/22/2016. PREOPERATIVE DIAGNOSIS: Cellulitis, abscess and compartment syndrome, left forearm status post fasciotomies. POSTOPERATIVE DIAGNOSIS: Cellulitis, abscess and compartment syndrome, left forearm status post fasciotomies. OPERATIVE PROCEDURE PERFORMED: Exploration, excisional debridement, partial closure of forearm fasciotomy wounds left forearm. SURGEON: Tari Vora M.D. ANESTHESIA: General. ESTIMATED BLOOD LOSS: 10 to 15 cc. TOURNIQUET TIME: No tourniquet was used. SPECIMEN: Discarded. DISPOSITION: To post-anesthesia care unit stable. INDICATIONS FOR THE PROCEDURE: The patient is a 51-year-old male who was initially seen for infection involving the left forearm. The patient underwent incision and drainage and forearm fasciotomies yesterday. He was brought in today for re-exploration, possible wound VAC change, and possible closure. The patient was consented for the same. He was explained the risks and benefits of the procedure. DESCRIPTION OF THE PROCEDURE IN DETAIL: The patient was brought to the operating room and under general anesthesia, the left upper extremity was thoroughly prepped and draped. The previously placed wound VAC was removed before prepping. Intraoperative findings included forearm fasciotomies over the volar compartment and extensor compartment. There was minimal necrotic tissue involving the skin, subcutaneous tissue, fascia and the muscles. Excisional debridement of the necrotic nonviable tissue was carried out. Most of the muscles were viable and was responsive to stimuli. A counter-incision was then made over the dorsal aspect of the proximal forearm to which packing was put in. A thorough wash of the wounds was carried out initially with normal saline mixed with hydrogen peroxide. This was then followed by normal saline mixed with irrigant. No evidence of purulent material was noted. Partial closure of the wound was carried out using Vesseloops which were put together in a shoelace pattern loosely approximating or keeping the skin edges thenar together. The forearm compartments were supple at the end of the procedure. 10 mL of local anesthesia was injected across the incision sites. Xeroform and bacitracin dressing applied. Bulky hand dressing was applied which was held in place by Sof-Rol and bias hand wrap. He had good distal circulation at the end of the procedure. He had good radial pulses. He was recovered and sent to the recovery room in stable condition. The plan will be to bring the patient back in two days time for reexploration and possible partial closure, possible full closure. Tari Vora MD SE/MANASA /5:31 PM /7:24 PM [facility]
[2016-07-23] VITALS (7 sets, daily range): BP systolic 106–131; BP diastolic 68–85; PULSE 52–102; RESP 18–20; TEMP 96.9–102.5; O2SAT 97–100
[2016-07-23] MEDS: VANCOMYCIN 1,500 MG/NS 500 ML IV SCH ×4 (00:09→11:59)
[2016-07-23] MEDS: MORPHINE SULFATE 4 MG/ML INJ IV PRN ×6 (00:09→17:54)
[2016-07-23] MEDS: SODIUM CHLOR 0.9% 1000 ML INJ 1,000 ML IV SCH ×3 (00:10→08:31)
[2016-07-23] MEDS: CLINDAMYCIN INJ 900 MG in SODIUM CHLORIDE 0.9% INJ 100 ML IV SCH ×2 (02:30→08:30)
[2016-07-23] MEDS: ceFAZolin 2 GM PREMIX 50 ML IV SCH ×3 (02:30→17:23)
[2016-07-23 08:17] LABS: AUTOMATED NEUTROPHIL # 5.6 TH/MM3 (1.8-7.7); BASOPHIL % 0.4 % (0.0-2.0); EOSINOPHIL # 0.1 TH/MM3 (0-0.4); EOSINOPHIL % 0.8 % (0.0-4.0); LYMPH % 13.7 % (9.0-44.0); MEAN CELL VOLUME 92.2 FL (80.0-100.0); MEAN CORPUSCULAR HEMOGLOBIN 30.8 PG (27.0-34.0); MEAN CORPUSCULAR HGB CONC 33.4 % (32.0-36.0); MONO % 5.3 % (0.0-8.0); NEUT % 79.8 % (16.0-70.0); PLATELET COUNT 124 TH/MM3 (150-450); RED BLOOD COUNT 3.25 MIL/MM3 (4.50-5.90); RED CELL DISTRIBUTION WIDTH 13.4 % (11.6-17.2); WHITE BLOOD COUNT 7.1 TH/MM3 (4.0-11.0)
[2016-07-23 08:20] LABS: HEMO FLAGS DIFF FINAL
[2016-07-23] MEDS: NICOTINE 21 MG/24 HR PATCH T-DERMAL SCH (08:30)
[2016-07-23] MEDS: DOCUSATE SODIUM 50 MG/SENNA 8.6 MG TAB PO SCH ×3 (08:30→19:57)
[2016-07-23] MEDS: REMOVE OLD PATCH T-DERMAL SCH (08:30)
[2016-07-23] MEDS: SODIUM CHLORIDE 0.9% FLUSH 10 ML FLUSH IV FLUSH SCH ×2 (08:32→19:58)
[2016-07-23] MEDS ORDERED: oxyCODONE/ACETAMINOPHEN 5 MG/325 MG TAB PO PRN (10:30)
[2016-07-23] MEDS: oxyCODONE/ACETAMINOPHEN 10 MG/325 MG TAB PO PRN ×3 (11:19→19:57)
[2016-07-23] MEDS: ACETAMINOPHEN 325 MG TAB PO PRN (11:21)
--- NOTE | 2016-07-23 11:25 | HHI.PR ---
Subjective Remarks The patient said that he felt his left arm was a little more swollen. He was having more pain than yesterday. He was requesting a regular diet. He wanted the frequency of his pain medications increased. Discussed with nursing. Objective Vitals Vital Signs Date Time Temp Pulse Resp B/P Pulse Ox O2 Delivery O2 Flow Rate FiO2 07/23/16 08:00 98.4 76 20 127/81 100 07/23/16 04:00 96.9 77 18 106/68 98 07/23/16 00:00 102.5 102 18 127/73 98 07/22/16 20:00 93 07/22/16 20:00 98.1 88 18 130/78 97 07/22/16 18:25 100.2 81 15 115/62 99 Nasal Cannula 2 07/22/16 18:14 80 16 114/60 99 Nasal Cannula 3 07/22/16 17:59 82 15 116/67 99 Nasal Cannula 3 07/22/16 17:44 87 16 120/72 100 Nasal Cannula 4 07/22/16 17:29 100.2 92 18 119/65 98 Nasal Cannula 4 07/22/16 16:00 102.0 103 21 159/86 99 07/22/16 12:00 101.1 92 20 118/78 93 I/O 07/22/16 07/22/16 07/22/16 07/23/16 07/23/16 07/23/16 07:00 15:00 23:00 07:00 15:00 23:00 Intake Total 766 ml 800 ml 1020 ml 1220 ml Output Total 1300 ml 600 ml 500 ml 800 ml Balance -534 ml 200 ml 520 ml 420 ml Intake Oral 800 ml 420 ml 420 ml IV Total 766 ml 300 ml 800 ml Other 300 ml Output Urine Total 1300 ml 600 ml 500 ml 800 ml # Bowel Movements 0 1 0 Result Diagram: 07/23/16 0613 07/23/16 0613 Imaging Last Impressions Upper Extremity CT 07/21/16 0000 Signed Impressions: Service Date/Time: Thursday, July 21, 2016 11:16 - CONCLUSION: 1. Severe subcutaneous edema along the medial aspect of the forearm and also involving the anterior and posterior aspects to some extent. There is associated skin thickening. This pattern is suggestive of a severe cellulitis. No abscess or drainable fluid collection is visualized. 2. The bones and muscles demonstrate no definite abnormality. Van Barber MD Chest X-Ray 07/20/162006 Signed Impressions: Service Date/Time: Wednesday, July 20, 2016 20:44 - CONCLUSION: No acute disease. Compa Grant MD FACR Tibia/Fibula X-Ray 07/20/161999 Signed Impressions: Service Date/Time: Wednesday, July 20, 2016 20:34 - CONCLUSION: Negative for radiopaque foreign body or osteomyelitis. Compa Grant MD FACR Radius/Ulna X-Ray 07/20/161999 Signed Impressions: Service Date/Time: Wednesday, July 20, 2016 20:40 - CONCLUSION: Negative for radiopaque foreign body. Compa Grant MD FACR Objective Remarks GENERAL: Well-developed, well-nourished, in no acute distress. alert and orientated HEENT: Head is normocephalic without any lesions or masses noted. Facial features are symmetric. Eyes: Pupils equal round reactive to light. Extraocular muscles are intact. Conjunctivae were clear. Oropharyngeal: Pharynx without any erythema edema. Tongue is midline without deviation. Buccal mucosa is moist without any masses or lesions NECK: Supple without any masses. Trachea midline no deviation. No JVD, no bruits are appreciated CARDIAC: Regular rhythm, regular rate. S1/S2 are heard. No murmurs gallops or rubs. LUNGS: Clear to auscultation bilaterally. No wheeze, rhonchi or rales. No use of accessory muscles on inspiration or expiration. ABDOMEN: Soft, nontender. Nondistended. Bowel sounds heard in all 4 quadrants. No organomegaly or masses. Negative rebound, negative guarding EXTREMITIES: No cyanosis or clubbing NEUROLOGY: Mood and affect appear appropriate. Cranial nerves II through XII grossly intact. Muscle strength 5/5 in upper and lower extremities bilaterally. RIGHT LOWER EXTREMITY: Patient does have a 2 x 3 cm open wound with multiple stages of healing. Serosanguineous drainage LEFT UPPER EXTREMITY: Left arm is bandaged. Tender to palpation. Able to wiggle fingers, though fingers on the left hand are cool to the touch. Decreased capillary refill bilaterally. PSYCH: Slightly flattened affect. Procedures Debridement/fasciotomy Medications and IVs Current Medications Medications (Trade) Dose Ordered Sig/Sebastián Route Start Time Stop Time Status Last Admin (Vancomycin Consult Pharmacy) 0 ml @ 0 mls/hr UNSCH OTHER 07/20/16 21:45 (NS Flush) 2 ml UNSCH PRN IV FLUSH 07/20/16 21:45 (NS Flush) 2 ml BID IV FLUSH 07/21/16 09:00 07/22/16 20:14 (Zofran Inj) 4 mg Q6H PRN IVP 07/20/16 21:45 07/21/16 08:22 (Tylenol) 650 mg Q6H PRN PO 07/20/16 21:45 07/23/16 11:21 (Mindy-Colace) 1 tab BID PO 07/21/16 09:00 07/22/16 08:33 (Milk Of Magnesia Liq) 30 ml Q12H PRN PO 07/20/16 21:45 (Senokot) 17.2 mg Q12H PRN PO 07/20/16 21:45 (Dulcolax Supp) 10 mg DAILY PRN RECTAL 07/20/16 21:45 (Lactulose Liq) 30 ml DAILY PRN PO 07/20/16 21:45 (Lovenox Inj) 40 mg Q24H SQ 07/21/16 09:00 Hold (Habitrol 21 Mg Patch.24 Hr) 1 patch DAILY T-DERMAL 07/21/16 11:00 07/23/16 08:30 Miscellaneous Information 1 1 DAILY T-DERMAL 07/22/16 09:00 07/23/16 08:30 (NS 1000 ml Inj) 1,000 ml @ 100 mls/hr Q10H IV 07/21/16 10:45 07/23/16 08:31 Morphine Sulfate 4 mg 4 mg Q4H PRN IV 07/22/16 13:23 07/23/16 08:31 (Vancomycin Inj/ NS 500 ml Inj) 515 ml @ 257.5 mls/ hr Q12H IV 07/23/16 00:00 07/23/16 00:09 Miscellaneous Information SPECIFIC LAB TO BE DRAWN:PHARM... ONCE ONCE .XX 07/24/16 11:45 07/24/16 11:46 Cefazolin Sodium/ Dextrose 50 ml @ 100 mls/hr Q8H IV 07/22/16 17:00 07/23/16 08:30 (Cleocin Inj/NS Inj) 106 ml @ 212 mls/hr Q8H IV 07/22/16 18:00 07/23/16 08:30 (Percocet 5-325 Mg) 1 tab Q4H PRN PO 07/23/16 10:30 (Percocet 10-325 Mg) 1 tab Q4H PRN PO 07/23/16 10:30 07/23/16 11:19 A/P Problem List: (1) Sepsis ICD Code: A41.9 Status: Acute (2) Leukocytosis ICD Code: D72.829 Status: Acute (3) Cellulitis of left forearm ICD Code: L03.114 Status: Acute (4) Febrile illness ICD Code: R50.9 Status: Acute Assessment and Plan Sepsis Patient met criteria for admission with febrile illness, leukocytosis, tachycardia, cellulitis of the left forearm. Patient presented with fever 102. Chest x-ray was clear. Urinalysis was unremarkable. S/p IVFs. - Blood cultures and wound culture are pending. - antibiotics. Left forearm cellulitis With significant edema, decreased capillary refill, concerning for possible compartmental syndrome. X-rays were taken which did not indicate any radiopaque foreign body. CT showed: Severe subcutaneous edema along the medial aspect of the forearm and also involving the anterior and posterior aspects to some extent ; There is associated skin thickening; This pattern is suggestive of a severe cellulitis; No abscess or drainable fluid collection is visualized; The bones and muscles demonstrate no definite abnormality. Consulted hand surgery stat, the pt went for debridement and fasciotomy. Taken back to the OR 07/22. ID consult appreciated. - continue antibiotics per ID. On vancomycin, clindamycin and cefazolin. - Await culture data. Wound culture growing group A beta strep. - Continue pain control with a bowel regimen. Percocet added. - d/c IVFs. - follow up with hand surgery. Further surgery scheduled 07/23. Anemia/ Thrombocytopenia Anemia likely s/t surgery. Thrombocytopenia appears chronic. - follow CBC and transfuse as needed. - hold Lovenox. Add SCDs. History of polysubstance abuse Urine drug screen positive for benzodiazepine. - Cessation instruction. Anxiety/depression Teary eyed at times. - Continue home medications. Interstitial cystitis Patient indicates that he has a malfunctioning bladder stimulator. - Continue home medications. - Outpt follow-up. DVT prevention: SCDs Discharge Planning Awaiting clinical improvement. Problem Qualifiers (1) Leukocytosis: Qualified Code: D72.829 - Leukocytosis, unspecified type Sachin Lawrence DO July 23, 2016 11:25
--- NOTE | 2016-07-23 11:25 | HHI.PR ---
Subjective Remarks This is a not for encounter date 07/22/2016. Pt was seen and evaluated 07/22 in the am. The pt wanted his pain meds increased. He was aware he was going for further surgery later on. Discussed with Dr. Rascon Objective Vitals Vital Signs Date Time Temp Pulse Resp B/P Pulse Ox O2 Delivery O2 Flow Rate FiO2 07/23/16 08:00 98.4 76 20 127/81 100 07/23/16 04:00 96.9 77 18 106/68 98 07/23/16 00:00 102.5 102 18 127/73 98 07/22/16 20:00 93 07/22/16 20:00 98.1 88 18 130/78 97 07/22/16 18:25 100.2 81 15 115/62 99 Nasal Cannula 2 07/22/16 18:14 80 16 114/60 99 Nasal Cannula 3 07/22/16 17:59 82 15 116/67 99 Nasal Cannula 3 07/22/16 17:44 87 16 120/72 100 Nasal Cannula 4 07/22/16 17:29 100.2 92 18 119/65 98 Nasal Cannula 4 07/22/16 16:00 102.0 103 21 159/86 99 07/22/16 12:00 101.1 92 20 118/78 93 I/O 07/22/16 07/22/16 07/22/16 07/23/16 07/23/16 07/23/16 07:00 15:00 23:00 07:00 15:00 23:00 Intake Total 766 ml 800 ml 1020 ml 1220 ml Output Total 1300 ml 600 ml 500 ml 800 ml Balance -534 ml 200 ml 520 ml 420 ml Intake Oral 800 ml 420 ml 420 ml IV Total 766 ml 300 ml 800 ml Other 300 ml Output Urine Total 1300 ml 600 ml 500 ml 800 ml # Bowel Movements 0 1 0 Result Diagram: 07/23/16 0613 07/23/16 0613 Imaging Last Impressions Upper Extremity CT 07/21/16 0000 Signed Impressions: Service Date/Time: Thursday, July 21, 2016 11:16 - CONCLUSION: 1. Severe subcutaneous edema along the medial aspect of the forearm and also involving the anterior and posterior aspects to some extent. There is associated skin thickening. This pattern is suggestive of a severe cellulitis. No abscess or drainable fluid collection is visualized. 2. The bones and muscles demonstrate no definite abnormality. Van Barber MD Chest X-Ray 07/20/162006 Signed Impressions: Service Date/Time: Wednesday, July 20, 2016 20:44 - CONCLUSION: No acute disease. Compa Grant MD FACR Tibia/Fibula X-Ray 07/20/161999 Signed Impressions: Service Date/Time: Wednesday, July 20, 2016 20:34 - CONCLUSION: Negative for radiopaque foreign body or osteomyelitis. Compa Grant MD FACR Radius/Ulna X-Ray 07/20/161999 Signed Impressions: Service Date/Time: Wednesday, July 20, 2016 20:40 - CONCLUSION: Negative for radiopaque foreign body. Compa Grant MD FACR Objective Remarks GENERAL: Well-developed, well-nourished, in no acute distress. alert and orientated HEENT: Head is normocephalic without any lesions or masses noted. Facial features are symmetric. Eyes: Pupils equal round reactive to light. Extraocular muscles are intact. Conjunctivae were clear. Oropharyngeal: Pharynx without any erythema edema. Tongue is midline without deviation. Buccal mucosa is moist without any masses or lesions NECK: Supple without any masses. Trachea midline no deviation. No JVD, no bruits are appreciated CARDIAC: Regular rhythm, regular rate. S1/S2 are heard. No murmurs gallops or rubs. LUNGS: Clear to auscultation bilaterally. No wheeze, rhonchi or rales. No use of accessory muscles on inspiration or expiration. ABDOMEN: Soft, nontender. Nondistended. Bowel sounds heard in all 4 quadrants. No organomegaly or masses. Negative rebound, negative guarding EXTREMITIES: No cyanosis or clubbing NEUROLOGY: Mood and affect appear appropriate. Cranial nerves II through XII grossly intact. Muscle strength 5/5 in upper and lower extremities bilaterally. RIGHT LOWER EXTREMITY: Patient does have a 2 x 3 cm open wound with multiple stages of healing. Serosanguineous drainage LEFT UPPER EXTREMITY: Left arm is bandaged. Tender to palpation. Able to wiggle fingers. Decreased capillary refill bilaterally. PSYCH: Mood and affect appropriate. Medications and IVs Current Medications Medications (Trade) Dose Ordered Sig/Sebastián Route Start Time Stop Time Status Last Admin (Vancomycin Consult Pharmacy) 0 ml @ 0 mls/hr UNSCH OTHER 07/20/16 21:45 (NS Flush) 2 ml UNSCH PRN IV FLUSH 07/20/16 21:45 (NS Flush) 2 ml BID IV FLUSH 07/21/16 09:00 07/22/16 20:14 (Zofran Inj) 4 mg Q6H PRN IVP 07/20/16 21:45 07/21/16 08:22 (Tylenol) 650 mg Q6H PRN PO 07/20/16 21:45 07/22/16 15:29 (Mindy-Colace) 1 tab BID PO 07/21/16 09:00 07/22/16 08:33 (Milk Of Magnesia Liq) 30 ml Q12H PRN PO 07/20/16 21:45 (Senokot) 17.2 mg Q12H PRN PO 07/20/16 21:45 (Dulcolax Supp) 10 mg DAILY PRN RECTAL 07/20/16 21:45 (Lactulose Liq) 30 ml DAILY PRN PO 07/20/16 21:45 (Lovenox Inj) 40 mg Q24H SQ 07/21/16 09:00 Hold (Habitrol 21 Mg Patch.24 Hr) 1 patch DAILY T-DERMAL 07/21/16 11:00 07/23/16 08:30 Miscellaneous Information 1 1 DAILY T-DERMAL 07/22/16 09:00 07/23/16 08:30 (NS 1000 ml Inj) 1,000 ml @ 100 mls/hr Q10H IV 07/21/16 10:45 07/23/16 08:31 Morphine Sulfate 4 mg 4 mg Q4H PRN IV 07/22/16 13:23 07/23/16 08:31 (Vancomycin Inj/ NS 500 ml Inj) 515 ml @ 257.5 mls/ hr Q12H IV 07/23/16 00:00 07/23/16 00:09 Miscellaneous Information SPECIFIC LAB TO BE DRAWN:PHARM... ONCE ONCE .XX 07/24/16 11:45 07/24/16 11:46 Cefazolin Sodium/ Dextrose 50 ml @ 100 mls/hr Q8H IV 07/22/16 17:00 07/23/16 08:30 (Cleocin Inj/NS Inj) 106 ml @ 212 mls/hr Q8H IV 07/22/16 18:00 07/23/16 08:30 (Percocet 5-325 Mg) 1 tab Q4H PRN PO 07/23/16 10:30 (Percocet 10-325 Mg) 1 tab Q4H PRN PO 07/23/16 10:30 A/P Problem List: (1) Sepsis ICD Code: A41.9 Status: Acute (2) Leukocytosis ICD Code: D72.829 Status: Acute (3) Cellulitis of left forearm ICD Code: L03.114 Status: Acute (4) Febrile illness ICD Code: R50.9 Status: Acute Assessment and Plan Sepsis Patient met criteria for admission with febrile illness, leukocytosis, tachycardia, cellulitis of the left forearm. Patient presented with fever 102. Chest x-ray was clear. Urinalysis was unremarkable. - Blood cultures and wound culture are pending. - antibiotics. Left forearm cellulitis With significant edema, decreased capillary refill, concerning for possible compartmental syndrome. X-rays were taken which did not indicate any radiopaque foreign body. CT showed: Severe subcutaneous edema along the medial aspect of the forearm and also involving the anterior and posterior aspects to some extent ; There is associated skin thickening; This pattern is suggestive of a severe cellulitis; No abscess or drainable fluid collection is visualized; The bones and muscles demonstrate no definite abnormality. Consulted hand surgery stat, the pt went for surgery. - continue antibiotics per ID. - Await culture data. - Continue pain control. History of polysubstance abuse Urine drug screen positive for benzodiazepine. - Cessation instruction. Anxiety/depression Mood is stable. - Continue home medications. Interstitial cystitis Patient indicates that he has a malfunctioning bladder stimulator. - Continue home medications. - Outpt follow-up. DVT prevention: Lovenox Discharge Planning Awaiting clinical improvement. Problem Qualifiers (1) Leukocytosis: Qualified Code: D72.829 - Leukocytosis, unspecified type Sachin Lawrence DO July 23, 2016 11:25
--- NOTE | 2016-07-23 18:18 | HHI.IDPN ---
Subjective Subjective Remarks ID FU DR ESPINOZA NO COMPLAINTS OF PAIN NO FEVERS OR CHILLS Antibiotics CLEOCIN/ ANCEF/ VANCO Allergies: Coded Allergies: Methadone (Verified Allergy, Severe, NAUSEA AND VOMITING AND RASH, 02/27/16) Celebrex (Verified Allergy, Unknown, UNKNOWN REACTION, 02/27/16) Sulfa (Verified Allergy, Unknown, UNKNOWN REACTION, 02/27/16) Voltaren (Verified Allergy, Unknown, [id number] REACTION, 02/27/16) Codeine (Verified Adverse Reaction, Severe, NAUSEA AND VOMITING, 02/27/16) Penicillin (Verified Adverse Reaction, Severe, Rash and nausea, vomiting, 07/22/16) Objective . Vital Signs Date Time Temp Pulse Resp B/P Pulse Ox O2 Delivery O2 Flow Rate FiO2 07/23/16 16:00 97.6 82 20 131/85 97 07/23/16 12:00 99.6 90 18 117/70 99 07/23/16 09:10 65 07/23/16 08:00 98.4 76 20 127/81 100 07/23/16 04:00 96.9 77 18 106/68 98 07/23/16 00:00 102.5 102 18 127/73 98 07/22/16 20:00 93 07/22/16 20:00 98.1 88 18 130/78 97 07/22/16 18:25 100.2 81 15 115/62 99 Nasal Cannula 2 07/22/16 07/22/16 07/23/16 14:59 22:59 06:59 Intake Total 800 ml 1020 ml 1220 ml Output Total 600 ml 500 ml 800 ml Balance 200 ml 520 ml 420 ml Intake Oral 800 ml 420 ml 420 ml IV Total 300 ml 800 ml Other 300 ml Output Urine Total 600 ml 500 ml 800 ml # Bowel Movements 0 1 0 . Laboratory Tests Test 07/23/16 06:13 White Blood Count 7.1 TH/MM3 Red Blood Count 3.25 MIL/MM3 Hemoglobin 10.0 GM/DL Hematocrit 30.0 % Mean Corpuscular Volume 92.2 FL Mean Corpuscular Hemoglobin 30.8 PG Mean Corpuscular Hemoglobin 33.4 % Concent Red Cell Distribution Width 13.4 % Platelet Count 124 TH/MM3 Mean Platelet Volume 8.3 FL Neutrophils (%) (Auto) 79.8 % Lymphocytes (%) (Auto) 13.7 % Monocytes (%) (Auto) 5.3 % Eosinophils (%) (Auto) 0.8 % Basophils (%) (Auto) 0.4 % Neutrophils # (Auto) 5.6 TH/MM3 Lymphocytes # (Auto) 1.0 TH/MM3 Monocytes # (Auto) 0.4 TH/MM3 Eosinophils # (Auto) 0.1 TH/MM3 Basophils # (Auto) 0.0 TH/MM3 CBC Comment DIFF FINAL Differential Comment Laboratory Tests Test 07/23/16 06:13 Creatinine 0.95 MG/DL Estimat Glomerular Filtration 83 ML/MIN Rate Microbiology Date/Time Procedure Status Source Growth 07/20/16 20:20 Aerobic Blood Culture - Preliminary Resulted Blood Peripheral NO GROWTH IN 3 DAYS 07/20/16 20:20 Anaerobic Blood Culture - Preliminary Resulted Blood Peripheral NO GROWTH IN 3 DAYS 07/20/16 20:30 Aerobic Blood Culture - Preliminary Resulted Blood Peripheral NO GROWTH IN 3 DAYS 07/20/16 20:30 Anaerobic Blood Culture - Preliminary Resulted Blood Peripheral NO GROWTH IN 3 DAYS 07/20/16 20:30 Gram Stain - Final Complete Wound Arm 07/20/16 20:30 Wound Culture - Final Complete Group A Beta Strep 07/21/16 14:46 Acid Fast Stain - Final Resulted Wound Arm NO ACID FAST BACILLI SEEN 07/21/16 14:46 Mycobacterial Culture Resulted Wound Arm Pending 07/21/16 14:46 Fungal Smear - Final Resulted Wound Arm NO FUNGAL ELEMENTS SEEN. 07/21/16 14:46 Fungal Culture Resulted Wound Arm Pending 07/21/16 14:46 Gram Stain - Final Resulted Wound Arm 07/21/16 14:46 Wound Culture - Preliminary Resulted Wound Arm 07/21/16 14:46 Gram Stain - Final Resulted Wound Arm 07/21/16 14:46 Wound Culture - Preliminary Resulted Group A Beta Strep 07/21/16 14:46 Fungal Smear - Final Resulted Wound Arm NO FUNGAL ELEMENTS SEEN. 07/21/16 14:46 Fungal Culture Resulted Wound Arm Pending 07/21/16 14:46 Acid Fast Stain Received Wound Arm Pending 07/21/16 14:46 Mycobacterial Culture Received Wound Arm Pending Physical Exam CONSTITUTIONAL/GENERAL: This is an adequately nourished patient, in no apparent distress. TUBES/LINES/DRAINS: SKIN: No jaundice, rashes, or lesions. Skin temperature appropriate. Not diaphoretic. Small clean based ulcer R oliva with minimal serous dc on dressing no surrounding cellulitis or luympphangitis HEAD: Atraumatic. Normocephalic. EYES: Pupils equal and round and reactive. Extraocular motions intact. No scleral icterus. No injection or drainage. Fundi not examined. ENT: Hearing grossly normal. Nose without bleeding or purulent drainage. Oral mucosae moist without visible erythema, exudates, masses, or lesions. Edentuolous NECK: Trachea midline. Supple, nontender. No palpable thyroid enlargement or nodularity. CARDIOVASCULAR: Regular rate and rhythm without murmurs, gallops, or rubs. No JVD. Peripheral pulses symmetric. RESPIRATORY/CHEST: Symmetric, unlabored respirations. Clear to auscultation. Breath sounds equal bilaterally. No wheezes, rales, or rhonchi. GASTROINTESTINAL: Abdomen soft, non-tender, nondistended. No hepato-splenomegaly , or palpable masses. No guarding. Bowel sounds present. GENITOURINARY: Without palpable bladder distension. MUSCULOSKELETAL: Extremities without clubbing, cyanosis, or edema. No mottling or clubbing. LUE with surg dressing in place fingers are well perfused but numb (some numbness is baseline) LYMPHATICS: No palpable cervical axillae or supraclavicular adenopathy. NEUROLOGICAL: Awake and alert. Motor and sensory grossly within normal limits. Follows commands. Clear speech. Moves all extremities. PSYCHIATRIC: No obvious anxiety/depression. no apparent hallucinations or other psychotic thought process. Assessment & Plan Diagnosis: (1) Tobacco abuse (2) Abscess of left forearm (3) Cellulitis of left forearm Plan: STOP CLEOCIN AND VANCO CONTINUE ANCEF PT MAY NEED MORE SURGERY WILL FU SEEN EXAM WITH DR ESPINOZA (4) Febrile illness (5) Compartment syndrome of left upper extremity Problem Qualifiers (1) Compartment syndrome of left upper extremity: Qualified Code: T79.A12A - Compartment syndrome of left upper extremity, initial encounter Radha Olmstead July 23, 2016 18:17
[2016-07-24] VITALS (9 sets, daily range): BP systolic 113–139; BP diastolic 70–89; PULSE 71–90; RESP 15–18; TEMP 96.7–98.1; O2SAT 96–98
[2016-07-24] MEDS: oxyCODONE/ACETAMINOPHEN 10 MG/325 MG TAB PO PRN ×5 (00:45→22:53)
[2016-07-24] MEDS: ceFAZolin 2 GM PREMIX 50 ML IV SCH ×4 (00:46→23:48)
[2016-07-24] MEDS ORDERED: FAMOTIDINE 20 MG/2 ML VIAL ONE (06:46)
[2016-07-24] MEDS ORDERED: MIDAZOLAM HCL 2 MG/2 ML VIAL ONE (06:46)
[2016-07-24] MEDS: NEOMYCIN/POLYMYXIN 1 ML G.U. IRRIGANT ONE ×2 (07:18→07:30)
[2016-07-24] MEDS: LIDOCAINE HCL 2% 50 ML VIAL ONE (07:18)
[2016-07-24] MEDS: BUPIVACAINE HCL PF 0.5% 30 ML VIAL ONE (07:18)
[2016-07-24] MEDS ORDERED: BACITRACIN TOP OINT 15 GM TUBE ONE (07:37)
--- NOTE | 2016-07-24 07:55 | PD.OP ---
Operative Report Preoperative Diagnosis: (1) Compartment syndrome of left upper extremity (2) Cellulitis of left forearm Postoperative Diagnosis: (1) Compartment syndrome of left upper extremity (2) Cellulitis of left forearm Procedure: exploration, excisional debridement and partial closure left forearm fasciotomy wound Anesthesia: general Surgeon: Tushar Ahn Cemetery Worker(s): alfonso Operation and Findings: subcutaneous swelling minimal necrotic/devitalized skin, subcutaneous and fascia viable muscles Tushar Ahn MD July 24, 2016 07:55
[2016-07-24] MEDS ORDERED: fentaNYL CITRATE 250 MCG/5 ML AMP ONE (08:03)
--- NOTE | 2016-07-24 08:36 | MP ---
cc: TARI VORA MD DATE OF SURGERY: July 24, 2016 PREOPERATIVE DIAGNOSIS Cellulitis/abscess left forearm with compartment syndrome status post fasciotomy. POSTOPERATIVE DIAGNOSIS Cellulitis/abscess left forearm status post compartment syndrome with fasciotomy wound. PROCEDURE Exploration, wash, excisional debridement and partial closure of the fasciotomy wound left forearm. SURGEON Dr. Vora. ANESTHESIA General. ESTIMATED BLOOD LOSS 10 ccs. TOURNIQUET No tourniquet was used. CONDITION The patient was recovered and sent to recovery in stable condition. INDICATION The patient is a 51-year-old male admitted with history of cellulitis, abscess over the left forearm. The patient underwent exploration, incision and drainage and compartment release of the volar and extensor compartment. He was put on wound vac and had a partial closure 2 days ago. He was brought in today for possible excisional debridement, partial closure of the wound. The patient was explained risk and benefits of the procedure. The patient was brought to the operating room under general anesthesia. The left upper extremity was thoroughly prepped and draped. The patient had fasciotomy wound with vessel loops holding the wound edges in a shoelace pattern. Minimal necrotic and devitalized tissue was noted in the skin, subcutaneous tissue and fascia region. The muscles appeared to be viable. Excisional debridement of devitalized and necrotic tissue was carried out, both over the volar and extensor compartments. The patient had extensive subcutaneous edema with surrounding erythema. A counter incision was made over the dorsal aspect of the proximal forearm to provide as a dependent drainage. Thorough wash was given using normal saline mixed with irrigant, about a liter of solution was used. Packing over the posterior wound was carried out. The vessel loops were slightly tightened. The patient still had wound measuring about 12 to 15 cm on the volar aspect in length and about 3 to 4 cm in width, and extensor compartment measuring about 7 to 8 cm, and width of about 2 to 3 cm. Xeroform, bacitracin dressing was applied, bulky hand dressing was applied which was held in place by Sof-Rol and bias hand wrap. He had good distal pulses at the end of the procedure. Pulse ox was 100%. He was recovered sent to recovery in stable condition. Plan will be to bring the patient in two days time for possible closure of the wound. Continue with IV antibiotics. MD ABEBE Grant /7:59 AM /8:23 AM DUNIA
[2016-07-24] MEDS: REMOVE OLD PATCH T-DERMAL SCH (09:00)
[2016-07-24] MEDS: SODIUM CHLORIDE 0.9% FLUSH 10 ML FLUSH IV FLUSH SCH ×2 (09:18→20:29)
[2016-07-24] MEDS: NICOTINE 21 MG/24 HR PATCH T-DERMAL SCH (09:18)
[2016-07-24] MEDS: DOCUSATE SODIUM 50 MG/SENNA 8.6 MG TAB PO SCH ×2 (09:19→20:28)
--- NOTE | 2016-07-24 10:00 | HHI.PR ---
Subjective Remarks Follow-up sepsis and cellulitis of the left forearm. Patient just returned from surgery complaining of pain left upper extremity. Confirms he takes amitriptyline, Valium and oxybutynin RN to call patient's pharmacy. Also discussed with wound care Objective Vitals Vital Signs Date Time Temp Pulse Resp B/P Pulse Ox O2 Delivery O2 Flow Rate FiO2 07/24/16 08:45 76 14 123/69 95 Room Air 07/24/16 08:30 71 14 126/68 94 Room Air 07/24/16 08:30 71 07/24/16 08:15 68 14 116/70 93 Room Air 07/24/16 08:01 99.1 86 16 121/76 97 Room Air 07/24/16 08:01 86 07/24/16 06:34 98.1 82 16 113/72 97 07/24/16 04:00 97.3 88 18 114/70 96 07/24/16 00:00 97.3 81 18 130/89 97 07/23/16 20:00 96.9 83 18 119/82 98 07/23/16 20:00 52 07/23/16 16:00 97.6 82 20 131/85 97 07/23/16 12:00 99.6 90 18 117/70 99 I/O 07/23/16 07/23/16 07/23/16 07/24/16 07/24/16 07/24/16 07:00 15:00 23:00 07:00 15:00 23:00 Intake Total 1220 ml 800 ml 480 ml 600 ml Output Total 800 ml 10 ml Balance 420 ml 800 ml 480 ml 590 ml Intake Oral 420 ml 480 ml 0 ml IV Total 800 ml 800 ml Other 600 ml Output Urine Total 800 ml Estimated Blood Loss 10 ml # Voids 0 # Bowel Movements 0 Result Diagram: 07/23/16 0613 07/23/16 0613 Imaging Last Impressions Upper Extremity CT 07/21/16 0000 Signed Impressions: Service Date/Time: Thursday, July 21, 2016 11:16 - CONCLUSION: 1. Severe subcutaneous edema along the medial aspect of the forearm and also involving the anterior and posterior aspects to some extent. There is associated skin thickening. This pattern is suggestive of a severe cellulitis. No abscess or drainable fluid collection is visualized. 2. The bones and muscles demonstrate no definite abnormality. Van Barber MD Chest X-Ray 07/20/162006 Signed Impressions: Service Date/Time: Wednesday, July 20, 2016 20:44 - CONCLUSION: No acute disease. Compa Grant MD FACR Tibia/Fibula X-Ray 07/20/161999 Signed Impressions: Service Date/Time: Wednesday, July 20, 2016 20:34 - CONCLUSION: Negative for radiopaque foreign body or osteomyelitis. Compa Grant MD FACR Radius/Ulna X-Ray 07/20/161999 Signed Impressions: Service Date/Time: Wednesday, July 20, 2016 20:40 - CONCLUSION: Negative for radiopaque foreign body. Compa Grant MD FACR Objective Remarks GENERAL: Well-developed, well-nourished, in no acute distress. alert and orientated HEENT: Head is normocephalic without any lesions or masses noted. Facial features are symmetric. Eyes: Pupils equal round reactive to light. Extraocular muscles are intact. Conjunctivae were clear. Oropharyngeal: Pharynx without any erythema edema. Tongue is midline without deviation. Buccal mucosa is moist without any masses or lesions NECK: Supple without any masses. Trachea midline no deviation. No JVD, no bruits are appreciated CARDIAC: Regular rhythm, regular rate. S1/S2 are heard. No murmurs gallops or rubs. LUNGS: Clear to auscultation bilaterally. No wheeze, rhonchi or rales. No use of accessory muscles on inspiration or expiration. ABDOMEN: Soft, nontender. Nondistended. Bowel sounds heard in all 4 quadrants. No organomegaly or masses. Negative rebound, negative guarding EXTREMITIES: No cyanosis or clubbing NEUROLOGY: Mood and affect appear appropriate. Cranial nerves II through XII grossly intact. Muscle strength 5/5 in upper and lower extremities bilaterally. RIGHT LOWER EXTREMITY: Patient does have a 2 x 3 cm open wound with multiple stages of healing. Serosanguineous drainage LEFT UPPER EXTREMITY: Left arm is bandaged. Tender to palpation. Able to wiggle fingers, though fingers on the left hand are cool to the touch. Decreased capillary refill bilaterally. Procedures 07/21/16 Exploration, forearm fasciotomies both volar and extensor compartments left forearm. 07/22/16 exploration, excisional debridement skin, subcutaneous tissue, fascia and muscles and partial closure left forearm 07/24/16 exploration, excisional debridement and partial closure left forearm fasciotomy wound A/P Problem List: (1) Sepsis ICD Code: A41.9 Status: Acute (2) Leukocytosis ICD Code: D72.829 Status: Acute (3) Cellulitis of left forearm ICD Code: L03.114 Status: Acute (4) Febrile illness ICD Code: R50.9 Status: Acute Assessment and Plan Sepsis Patient met criteria for admission with febrile illness, leukocytosis, tachycardia, cellulitis of the left forearm. Patient presented with fever 102. Chest x-ray was clear. Urinalysis was unremarkable. S/p IVFs. - Blood cultures negative to date and wound culture with group A beta strep Left forearm cellulitis With significant edema, decreased capillary refill, concerning for possible compartmental syndrome. X-rays were taken which did not indicate any radiopaque foreign body. CT showed: Severe subcutaneous edema along the medial aspect of the forearm and also involving the anterior and posterior aspects to some extent ; There is associated skin thickening; This pattern is suggestive of a severe cellulitis; No abscess or drainable fluid collection is visualized; The bones and muscles demonstrate no definite abnormality. Consulted hand surgery stat, the pt went for debridement and fasciotomy. Taken back to the OR 07/22 and . ID consult appreciated. - continue antibiotics per ID. On cefazolin. - Await culture data. Wound culture growing group A beta strep. - Continue pain control with a bowel regimen. Percocet added. - d/c IVFs. - follow up with hand surgery Anemia/ Thrombocytopenia Anemia likely s/t surgery. Thrombocytopenia appears chronic. - follow CBC and transfuse as needed. - hold Lovenox until cleared by hand surgery. History of polysubstance abuse Urine drug screen positive for benzodiazepine. - Cessation instruction. Anxiety/depression Teary eyed at times. - Continue home medications. Interstitial cystitis Patient indicates that he has a malfunctioning bladder stimulator. - Continue home medications. - Outpt follow-up. Right leg wound. Wound care. Watch for infection DVT prevention: SCDs and early ambulation Discharge Planning Not ready for discharge Problem Qualifiers (1) Leukocytosis: Qualified Code: D72.829 - Leukocytosis, unspecified type Gustabo Milligan MD July 24, 2016 10:00 Miscellaneous Information 1 1 DAILY T-DERMAL 07/22/16 09:00 07/23/16 08:30 (NS 1000 ml Inj) 1,000 ml @ 100 mls/hr Q10H IV 07/21/16 10:45 07/23/16 08:31 Morphine Sulfate 4 mg 4 mg Q4H PRN IV 07/22/16 13:23 07/23/16 08:31 (Vancomycin Inj/ NS 500 ml Inj) 515 ml @ 257.5 mls/ hr Q12H IV 07/23/16 00:00 07/23/16 00:09 Miscellaneous Information SPECIFIC LAB TO BE DRAWN:PHARM... ONCE ONCE .XX 07/24/16 11:45 07/24/16 11:46 Cefazolin Sodium/ Dextrose 50 ml @ 100 mls/hr Q8H IV 07/22/16 17:00 07/23/16 08:30 (Cleocin Inj/NS Inj) 106 ml @ 212 mls/hr Q8H IV 07/22/16 18:00 07/23/16 08:30 (Percocet 5-325 Mg) 1 tab Q4H PRN PO 07/23/16 10:30 (Percocet 10-325 Mg) 1 tab Q4H PRN PO 07/23/16 10:30 07/23/16 11:19 Plan A/P Problem List: (1) Sepsis ICD Code: A41.9 Status: Acute (2) Leukocytosis ICD Code: D72.829 Status: Acute (3) Cellulitis of left forearm ICD Code: L03.114 Status: Acute (4) Febrile illness ICD Code: R50.9 Status: Acute Assessment and Plan Sepsis Patient met criteria for admission with febrile illness, leukocytosis, tachycardia, cellulitis of the left forearm. Patient presented with fever 102. Chest x-ray was clear. Urinalysis was unremarkable. S/p IVFs. - Blood cultures and wound culture are pending. - antibiotics. Left forearm cellulitis With significant edema, decreased capillary refill, concerning for possible compartmental syndrome. X-rays were taken which did not indicate any radiopaque foreign body. CT showed: Severe subcutaneous edema along the medial aspect of the forearm and also involving the anterior and posterior aspects to some extent ; There is associated skin thickening; This pattern is suggestive of a severe cellulitis; No abscess or drainable fluid collection is visualized; The bones and muscles demonstrate no definite abnormality. Consulted hand surgery stat, the pt went for debridement and fasciotomy. Taken back to the OR 07/22. ID consult appreciated. - continue antibiotics per ID. On vancomycin, clindamycin and cefazolin. - Await culture data. Wound culture growing group A beta strep. - Continue pain control with a bowel regimen. Percocet added. - d/c IVFs. - follow up with hand surgery. Further surgery scheduled 07/23. Anemia/ Thrombocytopenia Anemia likely s/t surgery. Thrombocytopenia appears chronic. - follow CBC and transfuse as needed. - hold Lovenox. Add SCDs. History of polysubstance abuse Urine drug screen positive for benzodiazepine. - Cessation instruction. Anxiety/depression Teary eyed at times. - Continue home medications. Interstitial cystitis Patient indicates that he has a malfunctioning bladder stimulator. - Continue home medications. - Outpt follow-up. DVT prevention: SCDs Procedures 07/21/16 Exploration, forearm fasciotomies both volar and extensor compartments left forearm. 07/22/16 exploration, excisional debridement skin, subcutaneous tissue, fascia and muscles and partial closure left forearm A/P Problem List: (1) Sepsis ICD Code: A41.9 Status: Acute (2) Leukocytosis ICD Code: D72.829 Status: Acute (3) Cellulitis of left forearm ICD Code: L03.114 Status: Acute (4) Febrile illness ICD Code: R50.9 Status: Acute Problem Qualifiers (1) Leukocytosis: Qualified Code: D72.829 - Leukocytosis, unspecified type uGstabo Milligan MD July 24, 2016 10:00
[2016-07-24] MEDS ORDERED: DIAZ10 PO (11:16)
[2016-07-24] MEDS: MORPHINE SULFATE 4 MG/ML INJ IV PRN ×4 (11:30→23:48)
[2016-07-24] MEDS: OXYBUTYNIN CHLORIDE 5 MG TAB PO SCH ×3 (11:30→20:28)
[2016-07-24] MEDS ORDERED: OXYB5TAB10 PO (11:37)
[2016-07-24] MEDS ORDERED: PHARMACY ORDERED LAB ONE (11:45)
[2016-07-24] MEDS ORDERED: PROPOFOL 200 MG/20 ML AMP IV ONE (12:00)
[2016-07-24] MEDS: DIAZEPAM 10 MG TAB PO PRN ×2 (15:27→22:54)
--- NOTE | 2016-07-24 17:52 | HHI.IDPN ---
Subjective Subjective Remarks ID FU DR ESPINOZA had surgery today NO COMPLAINTS OF PAIN NO FEVERS OR CHILLS Antibiotics CLEOCIN/ ANCEF/ VANCO Allergies: Coded Allergies: Methadone (Verified Allergy, Severe, NAUSEA AND VOMITING AND RASH, 02/27/16) Celebrex (Verified Allergy, Unknown, UNKNOWN REACTION, 02/27/16) Sulfa (Verified Allergy, Unknown, UNKNOWN REACTION, 02/27/16) Voltaren (Verified Allergy, Unknown, [id number] REACTION, 02/27/16) Codeine (Verified Adverse Reaction, Severe, NAUSEA AND VOMITING, 02/27/16) Penicillin (Verified Adverse Reaction, Severe, Rash and nausea, vomiting, 07/22/16) Objective . Vital Signs Date Time Temp Pulse Resp B/P Pulse Ox O2 Delivery O2 Flow Rate FiO2 07/24/16 16:50 97.0 81 16 125/78 98 07/24/16 12:12 96.7 86 15 138/78 98 07/24/16 10:05 71 07/24/16 08:45 76 14 123/69 95 Room Air 07/24/16 08:30 71 14 126/68 94 Room Air 07/24/16 08:30 71 07/24/16 08:15 68 14 116/70 93 Room Air 07/24/16 08:01 99.1 86 16 121/76 97 Room Air 07/24/16 08:01 86 07/24/16 06:34 98.1 82 16 113/72 97 07/24/16 04:00 97.3 88 18 114/70 96 07/24/16 00:00 97.3 81 18 130/89 97 07/23/16 20:00 96.9 83 18 119/82 98 07/23/16 20:00 52 07/23/16 07/23/16 07/24/16 15:00 23:00 07:00 Intake Total 800 ml 480 ml Balance 800 ml 480 ml Intake Oral 480 ml IV Total 800 ml . Laboratory Tests Test 07/23/16 06:13 White Blood Count 7.1 TH/MM3 Red Blood Count 3.25 MIL/MM3 Hemoglobin 10.0 GM/DL Hematocrit 30.0 % Mean Corpuscular Volume 92.2 FL Mean Corpuscular Hemoglobin 30.8 PG Mean Corpuscular Hemoglobin 33.4 % Concent Red Cell Distribution Width 13.4 % Platelet Count 124 TH/MM3 Mean Platelet Volume 8.3 FL Neutrophils (%) (Auto) 79.8 % Lymphocytes (%) (Auto) 13.7 % Monocytes (%) (Auto) 5.3 % Eosinophils (%) (Auto) 0.8 % Basophils (%) (Auto) 0.4 % Neutrophils # (Auto) 5.6 TH/MM3 Lymphocytes # (Auto) 1.0 TH/MM3 Monocytes # (Auto) 0.4 TH/MM3 Eosinophils # (Auto) 0.1 TH/MM3 Basophils # (Auto) 0.0 TH/MM3 CBC Comment DIFF FINAL Differential Comment Laboratory Tests Test 07/23/16 06:13 Creatinine 0.95 MG/DL Estimat Glomerular Filtration 83 ML/MIN Rate Microbiology Date/Time Procedure Status Source Growth 07/24/16 10:05 Gram Stain - Final Resulted Wound Leg 07/24/16 10:05 Wound Culture Resulted Wound Leg Pending Physical Exam CONSTITUTIONAL/GENERAL: This is an adequately nourished patient, in no apparent distress. TUBES/LINES/DRAINS: SKIN: No jaundice, rashes, or lesions. Skin temperature appropriate. Not diaphoretic. Small clean based ulcer R oliva with minimal serous dc on dressing no surrounding cellulitis or luympphangitis HEAD: Atraumatic. Normocephalic. EYES: Pupils equal and round and reactive. Extraocular motions intact. No scleral icterus. No injection or drainage. Fundi not examined. ENT: Hearing grossly normal. Nose without bleeding or purulent drainage. Oral mucosae moist without visible erythema, exudates, masses, or lesions. Edentuolous NECK: Trachea midline. Supple, nontender. No palpable thyroid enlargement or nodularity. CARDIOVASCULAR: Regular rate and rhythm without murmurs, gallops, or rubs. No JVD. Peripheral pulses symmetric. RESPIRATORY/CHEST: Symmetric, unlabored respirations. Clear to auscultation. Breath sounds equal bilaterally. No wheezes, rales, or rhonchi. GASTROINTESTINAL: Abdomen soft, non-tender, nondistended. No hepato-splenomegaly , or palpable masses. No guarding. Bowel sounds present. GENITOURINARY: Without palpable bladder distension. MUSCULOSKELETAL: Extremities without clubbing, cyanosis, or edema. No mottling or clubbing. LUE with surg dressing in place fingers are well perfused but numb (some numbness is baseline) LYMPHATICS: No palpable cervical axillae or supraclavicular adenopathy. NEUROLOGICAL: Awake and alert. Motor and sensory grossly within normal limits. Follows commands. Clear speech. Moves all extremities. PSYCHIATRIC: No obvious anxiety/depression. no apparent hallucinations or other psychotic thought process. Assessment & Plan Diagnosis: (1) Tobacco abuse (2) Abscess of left forearm (3) Cellulitis of left forearm Plan: CONTINUE ANCEF s/p surgery today fu SEEN EXAM WITH DR ESPINOZA (4) Febrile illness (5) Compartment syndrome of left upper extremity Problem Qualifiers (1) Compartment syndrome of left upper extremity: Qualified Code: T79.A12A - Compartment syndrome of left upper extremity, initial encounter Radha Olmstead July 24, 2016 17:52
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
[2016-07-24] MEDS: AMITRIPTYLINE HCL 25 MG TAB PO SCH (20:28)
[2016-07-25] VITALS (7 sets, daily range): BP systolic 117–135; BP diastolic 68–82; PULSE 70–88; RESP 18; TEMP 96.4–98.6; O2SAT 92–97
[2016-07-25] MEDS: MORPHINE SULFATE 4 MG/ML INJ IV PRN ×5 (04:50→23:10)
[2016-07-25] MEDS: DIAZEPAM 10 MG TAB PO PRN (06:05)
[2016-07-25] MEDS: oxyCODONE/ACETAMINOPHEN 10 MG/325 MG TAB PO PRN ×4 (06:05→21:38)
[2016-07-25] MEDS: DOCUSATE SODIUM 50 MG/SENNA 8.6 MG TAB PO SCH ×2 (08:47→21:37)
[2016-07-25] MEDS: OXYBUTYNIN CHLORIDE 5 MG TAB PO SCH ×4 (08:47→21:37)
[2016-07-25] MEDS: NICOTINE 21 MG/24 HR PATCH T-DERMAL SCH (08:48)
[2016-07-25] MEDS: ceFAZolin 2 GM PREMIX 50 ML IV SCH ×2 (08:49→16:36)
[2016-07-25] MEDS: SODIUM CHLORIDE 0.9% FLUSH 10 ML FLUSH IV FLUSH SCH ×2 (09:00→21:38)
[2016-07-25] MEDS: REMOVE OLD PATCH T-DERMAL SCH (09:00)
--- NOTE | 2016-07-25 12:49 | HHI.PR ---
Subjective Remarks Follow-up constipation. Still no bowel movement. Denies nausea and abdominal pain. We'll add MiraLAX. Discussed with RN Objective Vitals Vital Signs Date Time Temp Pulse Resp B/P Pulse Ox O2 Delivery O2 Flow Rate FiO2 07/25/16 12:00 98.0 70 18 123/73 92 07/25/16 08:00 96.9 79 18 117/68 94 07/25/16 04:00 96.4 81 18 127/82 96 07/25/16 00:00 97.5 80 18 131/77 96 07/24/16 20:00 90 07/24/16 20:00 97.9 88 18 139/83 98 07/24/16 16:50 97.0 81 16 125/78 98 I/O 07/24/16 07/24/16 07/24/16 07/25/16 07/25/16 07/25/16 07:00 15:00 23:00 07:00 15:00 23:00 Intake Total 600 ml 1000 ml 710 ml Output Total 10 ml 500 ml Balance 590 ml 1000 ml 210 ml Intake Oral 0 ml 1000 ml 660 ml IV Total 50 ml Other 600 ml Output Urine Total 500 ml Estimated Blood Loss 10 ml # Voids 0 7 3 # Bowel Movements 1 2 Result Diagram: 07/23/16 0613 07/23/16 0613 Imaging Last Impressions Upper Extremity Ultrasound 07/24/16 0000 Signed Impressions: Service Date/Time: Sunday, July 24, 2016 18:53 - CONCLUSION: Subcutaneous edema without abscess. Loy Russell Jr., MD Upper Extremity CT 07/21/16 0000 Signed Impressions: Service Date/Time: Thursday, July 21, 2016 11:16 - CONCLUSION: 1. Severe subcutaneous edema along the medial aspect of the forearm and also involving the anterior and posterior aspects to some extent. There is associated skin thickening. This pattern is suggestive of a severe cellulitis. No abscess or drainable fluid collection is visualized. 2. The bones and muscles demonstrate no definite abnormality. Van Barber MD Chest X-Ray 07/20/162006 Signed Impressions: Service Date/Time: Wednesday, July 20, 2016 20:44 - CONCLUSION: No acute disease. Compa Grant MD FACR Tibia/Fibula X-Ray 07/20/161999 Signed Impressions: Service Date/Time: Wednesday, July 20, 2016 20:34 - CONCLUSION: Negative for radiopaque foreign body or osteomyelitis. Compa Grant MD FACR Radius/Ulna X-Ray 07/20/161999 Signed Impressions: Service Date/Time: Wednesday, July 20, 2016 20:40 - CONCLUSION: Negative for radiopaque foreign body. Compa Grant MD FACR Objective Remarks GENERAL: Well-developed, well-nourished, in no acute distress. alert and orientated. In no distress HEENT: Head is normocephalic without any lesions or masses noted. Facial features are symmetric. Eyes: Pupils equal round reactive to light. Extraocular muscles are intact. Conjunctivae were clear. Oropharyngeal: Pharynx without any erythema edema. Tongue is midline without deviation. Buccal mucosa is moist without any masses or lesions NECK: Supple without any masses. Trachea midline no deviation. No JVD, no bruits are appreciated CARDIAC: Regular rhythm, regular rate. S1/S2 are heard. No murmurs gallops or rubs. LUNGS: Clear to auscultation bilaterally. No wheeze, rhonchi or rales. No use of accessory muscles on inspiration or expiration. ABDOMEN: Soft, nontender. Nondistended. Bowel sounds heard in all 4 quadrants. No organomegaly or masses. Negative rebound, negative guarding EXTREMITIES: No cyanosis or clubbing NEUROLOGY: Mood and affect appear appropriate. Cranial nerves II through XII grossly intact. Muscle strength 5/5 in upper and lower extremities bilaterally. RIGHT LOWER EXTREMITY: Patient does have a 2 x 3 cm open wound with multiple stages of healing. Serosanguineous drainage LEFT UPPER EXTREMITY: Left arm is bandaged. Tender to palpation. Able to wiggle fingers, though fingers on the left hand are cool to the touch. Decreased capillary refill bilaterally. Procedures 07/21/16 Exploration, forearm fasciotomies both volar and extensor compartments left forearm. 07/22/16 exploration, excisional debridement skin, subcutaneous tissue, fascia and muscles and partial closure left forearm 07/24/16 exploration, excisional debridement and partial closure left forearm fasciotomy wound A/P Problem List: (1) Sepsis ICD Code: A41.9 Status: Acute (2) Leukocytosis ICD Code: D72.829 Status: Acute (3) Cellulitis of left forearm ICD Code: L03.114 Status: Acute (4) Febrile illness ICD Code: R50.9 Status: Acute Assessment and Plan Sepsis Patient met criteria for admission with febrile illness, leukocytosis, tachycardia, cellulitis of the left forearm. Patient presented with fever 102. Chest x-ray was clear. Urinalysis was unremarkable. S/p IVFs. - Blood cultures negative to date and wound culture with group A beta strep Left forearm cellulitis With significant edema, decreased capillary refill, concerning for possible compartmental syndrome. X-rays were taken which did not indicate any radiopaque foreign body. CT showed: Severe subcutaneous edema along the medial aspect of the forearm and also involving the anterior and posterior aspects to some extent ; There is associated skin thickening; This pattern is suggestive of a severe cellulitis; No abscess or drainable fluid collection is visualized; The bones and muscles demonstrate no definite abnormality. Consulted hand surgery stat, the pt went for debridement and fasciotomy. Taken back to the OR 07/22 and . ID consult appreciated. - continue antibiotics per ID. On cefazolin. - Await culture data. Wound culture growing group A beta strep. - Continue pain control with a bowel regimen. Percocet added. - d/c IVFs. - follow up with hand surgery and follow-up sonogram shows edema no abscess Anemia/ Thrombocytopenia Anemia likely s/t surgery. Thrombocytopenia appears chronic. - follow CBC and transfuse as needed. - hold Lovenox until cleared by hand surgery. History of polysubstance abuse Urine drug screen positive for benzodiazepine. - Cessation instruction. Anxiety/depression Teary eyed at times. - Continue home medications. Interstitial cystitis Patient indicates that he has a malfunctioning bladder stimulator. - Continue home medications. - Outpt follow-up. Right leg wound. Wound care. Watch for infection Constipation. Add MiraLAX DVT prevention: SCDs and early ambulation Discharge Planning Discharge per ID and hand surgery Problem Qualifiers (1) Leukocytosis: Qualified Code: D72.829 - Leukocytosis, unspecified type Gustabo Milligan MD Jul 25, 2016 12:49
[2016-07-25] MEDS: LACTULOSE SYRUP 20 GM/30 ML CUP PO PRN (16:36)
--- NOTE | 2016-07-25 16:58 | HHI.PR ---
Subjective Remarks complains of pain, getter better Objective Vital Signs Date Time Temp Pulse Resp B/P Pulse Ox O2 Delivery O2 Flow Rate FiO2 07/25/16 12:00 98.0 70 18 123/73 92 07/25/16 08:00 96.9 79 18 117/68 94 07/25/16 04:00 96.4 81 18 127/82 96 07/25/16 00:00 97.5 80 18 131/77 96 07/24/16 20:00 90 07/24/16 20:00 97.9 88 18 139/83 98 I/O 07/24/16 07/24/16 07/24/16 07/25/16 07/25/16 07/25/16 07:00 15:00 23:00 07:00 15:00 23:00 Intake Total 600 ml 1000 ml 710 ml Output Total 10 ml 500 ml Balance 590 ml 1000 ml 210 ml Intake Oral 0 ml 1000 ml 660 ml IV Total 50 ml Other 600 ml Output Urine Total 500 ml Estimated Blood Loss 10 ml # Voids 0 7 3 # Bowel Movements 1 2 examination of left upper extremity: intact dressing range of motion of fingers improved decreased sensation over the tips intact circulation cultures: group B strep Result Diagram: 07/23/1661207/23/16612 Assessment and Plan Assessment and Plan 51 year old male with left forearm infection s/p I and D, forearm fasciotomies, multiple debridements Plan: keep the patient npo from midnight plan for exploration and excisional debridement and possible closure left forearm wound on 07/26/16 consent obtained. keep the part elevated range of motion exercises. Tushar Ahn MD Jul 25, 2016 16:58
[2016-07-25] MEDS: POLYETHYLENE GLYCOL 17 GM PKG PO SCH (18:18)
--- NOTE | 2016-07-25 19:25 | HHI.IDPN ---
Subjective Subjective Remarks ID FU DR ESPINOZA REDNESS NOTED AT UPPER ARM NPO AFTER MN FOR SURGERY IN AM NO COMPLAINTS OF PAIN NO FEVERS OR CHILLS Antibiotics ANCEF Allergies: Coded Allergies: Methadone (Verified Allergy, Severe, NAUSEA AND VOMITING AND RASH, 02/27/16) Celebrex (Verified Allergy, Unknown, UNKNOWN REACTION, 02/27/16) Sulfa (Verified Allergy, Unknown, UNKNOWN REACTION, 02/27/16) Voltaren (Verified Allergy, Unknown, [id number] REACTION, 02/27/16) Codeine (Verified Adverse Reaction, Severe, NAUSEA AND VOMITING, 02/27/16) Penicillin (Verified Adverse Reaction, Severe, Rash and nausea, vomiting, 07/22/16) Objective . Vital Signs Date Time Temp Pulse Resp B/P Pulse Ox O2 Delivery O2 Flow Rate FiO2 07/25/16 16:00 98.6 78 18 135/82 97 07/25/16 12:00 98.0 70 18 123/73 92 07/25/16 08:00 96.9 79 18 117/68 94 07/25/16 04:00 96.4 81 18 127/82 96 07/25/16 00:00 97.5 80 18 131/77 96 07/24/16 20:00 90 07/24/16 20:00 97.9 88 18 139/83 98 07/24/16 07/24/16 07/25/16 14:59 22:59 06:59 Intake Total 600 ml 1000 ml 710 ml Output Total 10 ml 500 ml Balance 590 ml 1000 ml 210 ml Intake Oral 0 ml 1000 ml 660 ml IV Total 50 ml Other 600 ml Output Urine Total 500 ml Estimated Blood Loss 10 ml # Voids 0 7 3 # Bowel Movements 1 2 . Microbiology Date/Time Procedure Status Source Growth 07/24/16 10:05 Gram Stain - Final Resulted Wound Leg 07/24/16 10:05 Wound Culture - Preliminary Resulted Wound Leg LIGHT GROWTH NORMAL SKIN JAMMIE AT 24HRS Physical Exam CONSTITUTIONAL/GENERAL: This is an adequately nourished patient, in no apparent distress. TUBES/LINES/DRAINS: SKIN: No jaundice, rashes, or lesions. Skin temperature appropriate. Not diaphoretic. Small clean based ulcer R oliva with minimal serous dc on dressing no surrounding cellulitis or luympphangitis HEAD: Atraumatic. Normocephalic. EYES: Pupils equal and round and reactive. Extraocular motions intact. No scleral icterus. No injection or drainage. Fundi not examined. ENT: Hearing grossly normal. Nose without bleeding or purulent drainage. Oral mucosae moist without visible erythema, exudates, masses, or lesions. Edentuolous NECK: Trachea midline. Supple, nontender. No palpable thyroid enlargement or nodularity. CARDIOVASCULAR: Regular rate and rhythm without murmurs, gallops, or rubs. No JVD. Peripheral pulses symmetric. RESPIRATORY/CHEST: Symmetric, unlabored respirations. Clear to auscultation. Breath sounds equal bilaterally. No wheezes, rales, or rhonchi. GASTROINTESTINAL: Abdomen soft, non-tender, nondistended. No hepato-splenomegaly , or palpable masses. No guarding. Bowel sounds present. GENITOURINARY: Without palpable bladder distension. MUSCULOSKELETAL: Extremities without clubbing, cyanosis, or edema. No mottling or clubbing. LUE with surg dressing in place fingers are well perfused but numb (some numbness is baseline) LYMPHATICS: No palpable cervical axillae or supraclavicular adenopathy. NEUROLOGICAL: Awake and alert. Motor and sensory grossly within normal limits. Follows commands. Clear speech. Moves all extremities. PSYCHIATRIC: No obvious anxiety/depression. no apparent hallucinations or other psychotic thought process. Assessment & Plan Diagnosis: (1) Tobacco abuse (2) Abscess of left forearm (3) Cellulitis of left forearm Plan: CONTINUE ANCEF ADD CIPRO FURTHER ORDERS TO FOLLOW (4) Febrile illness (5) Compartment syndrome of left upper extremity Problem Qualifiers (1) Compartment syndrome of left upper extremity: Qualified Code: T79.A12D - Compartment syndrome of left upper extremity, subsequent encounter Radha Olmstead Jul 25, 2016 19:24
[2016-07-25] MEDS: AMITRIPTYLINE HCL 25 MG TAB PO SCH (21:38)
[2016-07-25] MEDS: CIPROFLOXACIN/DEXT 400 MG/200 ML IV SCH (21:39)
[2016-07-26 00:09] VITALS: BP 147/89; PULSE 78; RESP 18; TEMP 97.9; O2SAT 94
[2016-07-26] MEDS: ceFAZolin 2 GM PREMIX 50 ML IV SCH ×2 (01:01→10:05)
[2016-07-26] MEDS: oxyCODONE/ACETAMINOPHEN 10 MG/325 MG TAB PO PRN ×4 (01:55→22:36)
[2016-07-26 04:09] VITALS: BP 128/84; PULSE 73; RESP 16; TEMP 96.7; O2SAT 97
[2016-07-26] MEDS: MORPHINE SULFATE 4 MG/ML INJ IV PRN ×3 (07:21→20:35)
[2016-07-26 08:00] VITALS: BP 141/87; PULSE 68; RESP 16; TEMP 96.9; O2SAT 97
[2016-07-26] MEDS: REMOVE OLD PATCH T-DERMAL SCH (09:00)
[2016-07-26] MEDS: DOCUSATE SODIUM 50 MG/SENNA 8.6 MG TAB PO SCH ×2 (09:00→21:00)
[2016-07-26] MEDS: SODIUM CHLORIDE 0.9% FLUSH 10 ML FLUSH IV FLUSH SCH ×2 (09:00→20:32)
[2016-07-26] MEDS: OXYBUTYNIN CHLORIDE 5 MG TAB PO SCH ×4 (10:04→22:37)
[2016-07-26] MEDS: NICOTINE 21 MG/24 HR PATCH T-DERMAL SCH (10:04)
[2016-07-26] MEDS: POLYETHYLENE GLYCOL 17 GM PKG PO SCH (10:05)
[2016-07-26] MEDS: CIPROFLOXACIN/DEXT 400 MG/200 ML IV SCH ×2 (10:05→20:38)
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
[2016-07-26] MEDS: cefTRIAXone INJ 2,000 MG in SODIUM CHLORIDE 0.9% INJ 100 ML IV SCH (11:00)
--- NOTE | 2016-07-26 11:58 | HHI.PR ---
Subjective Remarks Follow-up left upper extremity infection. Currently nothing by mouth for surgery later today. Discussed with ID, IV ciprofloxacin has been added. Discussed with RN Objective Vitals Vital Signs Date Time Temp Pulse Resp B/P Pulse Ox O2 Delivery O2 Flow Rate FiO2 07/26/16 08:00 96.9 68 16 141/87 97 07/26/16 04:09 96.7 73 16 128/84 97 07/26/16 00:09 97.9 78 18 147/89 94 07/25/16 20:09 97.3 84 18 133/79 97 07/25/16 20:00 88 07/25/16 16:00 98.6 78 18 135/82 97 07/25/16 12:00 98.0 70 18 123/73 92 I/O 07/25/16 07/25/16 07/25/16 07/26/16 07/26/16 07/26/16 07:00 15:00 23:00 07:00 15:00 23:00 Intake Total 710 ml 950 ml Output Total 500 ml Balance 210 ml 950 ml Intake Oral 660 ml 950 ml IV Total 50 ml Output Urine Total 500 ml # Voids 3 7 2 # Bowel Movements 2 0 Result Diagram: 07/23/16 0613 07/23/16 0613 Imaging Last Impressions Upper Extremity Ultrasound 07/24/16 0000 Signed Impressions: Service Date/Time: Sunday, July 24, 2016 18:53 - CONCLUSION: Subcutaneous edema without abscess. Loy Russell Jr., MD Upper Extremity CT 07/21/16 0000 Signed Impressions: Service Date/Time: Thursday, July 21, 2016 11:16 - CONCLUSION: 1. Severe subcutaneous edema along the medial aspect of the forearm and also involving the anterior and posterior aspects to some extent. There is associated skin thickening. This pattern is suggestive of a severe cellulitis. No abscess or drainable fluid collection is visualized. 2. The bones and muscles demonstrate no definite abnormality. Van Barber MD Chest X-Ray 07/20/162006 Signed Impressions: Service Date/Time: Wednesday, July 20, 2016 20:44 - CONCLUSION: No acute disease. Compa Grant MD FACR Tibia/Fibula X-Ray 07/20/161999 Signed Impressions: Service Date/Time: Wednesday, July 20, 2016 20:34 - CONCLUSION: Negative for radiopaque foreign body or osteomyelitis. Compa Grant MD FACR Radius/Ulna X-Ray 07/20/161999 Signed Impressions: Service Date/Time: Wednesday, July 20, 2016 20:40 - CONCLUSION: Negative for radiopaque foreign body. Compa Grant MD FACR Objective Remarks GENERAL: Well-developed, well-nourished, in no acute distress. alert and orientated. In no distress HEENT: Head is normocephalic without any lesions or masses noted. Facial features are symmetric. Eyes: Pupils equal round reactive to light. Extraocular muscles are intact. Conjunctivae were clear. Oropharyngeal: Pharynx without any erythema edema. Tongue is midline without deviation. Buccal mucosa is moist without any masses or lesions NECK: Supple without any masses. Trachea midline no deviation. No JVD, no bruits are appreciated CARDIAC: Regular rhythm, regular rate. S1/S2 are heard. No murmurs gallops or rubs. LUNGS: Clear to auscultation bilaterally. No wheeze, rhonchi or rales. No use of accessory muscles on inspiration or expiration. ABDOMEN: Soft, nontender. Nondistended. Bowel sounds heard in all 4 quadrants. No organomegaly or masses. Negative rebound, negative guarding EXTREMITIES: No cyanosis or clubbing NEUROLOGY: Mood and affect appear appropriate. Cranial nerves II through XII grossly intact. Muscle strength 5/5 in upper and lower extremities bilaterally. Nonfocal RIGHT LOWER EXTREMITY: Patient does have a 2 x 3 cm open wound with multiple stages of healing. Serosanguineous drainage LEFT UPPER EXTREMITY: Left arm is bandaged. Tender to palpation. Able to wiggle fingers, though fingers on the left hand are cool to the touch. Decreased capillary refill bilaterally. Erythema noted left proximal arm Procedures 07/21/16 Exploration, forearm fasciotomies both volar and extensor compartments left forearm. 07/22/16 exploration, excisional debridement skin, subcutaneous tissue, fascia and muscles and partial closure left forearm 07/24/16 exploration, excisional debridement and partial closure left forearm fasciotomy wound A/P Problem List: (1) Sepsis ICD Code: A41.9 Status: Acute (2) Leukocytosis ICD Code: D72.829 Status: Acute (3) Cellulitis of left forearm ICD Code: L03.114 Status: Acute (4) Febrile illness ICD Code: R50.9 Status: Acute Assessment and Plan Sepsis Patient met criteria for admission with febrile illness, leukocytosis, tachycardia, cellulitis of the left forearm. Patient presented with fever 102. Chest x-ray was clear. Urinalysis was unremarkable. S/p IVFs. - Blood cultures negative to date and wound culture with group A beta strep Left forearm cellulitis With significant edema, decreased capillary refill, concerning for possible compartmental syndrome. X-rays were taken which did not indicate any radiopaque foreign body. CT showed: Severe subcutaneous edema along the medial aspect of the forearm and also involving the anterior and posterior aspects to some extent ; There is associated skin thickening; This pattern is suggestive of a severe cellulitis; No abscess or drainable fluid collection is visualized; The bones and muscles demonstrate no definite abnormality. Consulted hand surgery stat, the pt went for debridement and fasciotomy. Taken back to the OR 07/22 and 07/24 with planned surgery today. ID consult appreciated. - continue antibiotics per ID. On cefazolin and Cipro. - Await culture data. Wound culture growing group A beta strep. - Continue pain control with a bowel regimen. Percocet added. - d/c IVFs. - follow up with hand surgery and follow-up sonogram shows edema no abscess Anemia/ Thrombocytopenia Anemia likely s/t surgery. Thrombocytopenia appears chronic. - follow CBC and transfuse as needed. - hold Lovenox until cleared by hand surgery. History of polysubstance abuse Urine drug screen positive for benzodiazepine. - Cessation instruction. Anxiety/depression Teary eyed at times. - Continue home medications. Interstitial cystitis Patient indicates that he has a malfunctioning bladder stimulator. - Continue home medications. - Outpt follow-up. Right leg wound. Wound care. Watch for infection Constipation. Added MiraLAX . Discussed with RN to provide as needed medications for constipation DVT prevention: SCDs and early ambulation Discharge Planning Discharge per ID and hand surgery Problem Qualifiers (1) Sepsis: Qualified Code: A40.0 - Sepsis due to group A Streptococcus (2) Leukocytosis: Qualified Code: D72.829 - Leukocytosis, unspecified type Gustabo Milligan MD Jul 26, 2016 11:58
[2016-07-26 12:00] VITALS: BP 144/88; PULSE 66; RESP 16; TEMP 97; O2SAT 99
[2016-07-26] MEDS ORDERED: ONDANSETRON HCL 4 MG/2 ML VIAL IV PUSH ONE (12:50)
[2016-07-26] MEDS ORDERED: PROPOFOL 200 MG/20 ML AMP IV ONE (12:50)
[2016-07-26] MEDS ORDERED: BUPIVACAINE HCL PF 0.5% 30 ML VIAL ONE (13:16)
[2016-07-26] MEDS ORDERED: LIDOCAINE HCL 2% 50 ML VIAL ONE (13:16)
[2016-07-26] MEDS ORDERED: MIDAZOLAM HCL 2 MG/2 ML VIAL ONE (13:30)
[2016-07-26] MEDS ORDERED: FAMOTIDINE 20 MG/2 ML VIAL ONE (13:30)
[2016-07-26] MEDS ORDERED: NEOMYCIN/POLYMYXIN 1 ML G.U. IRRIGANT ONE ×3 (13:47→15:05)
[2016-07-26] MEDS: BUPIVACAINE HCL PF 0.5% 30 ML VIAL ONE (14:09)
[2016-07-26] MEDS: LIDOCAINE HCL 2% 50 ML VIAL ONE (14:09)
[2016-07-26] MEDS ORDERED: BACITRACIN TOP OINT 15 GM TUBE ONE (14:45)
[2016-07-26 15:07] VITALS: PULSE 87
[2016-07-26] MEDS ORDERED: *MEPERIDINE 25 MG INJ VIAL PERIprocedural Use ONLY ONE (15:07)
--- NOTE | 2016-07-26 15:12 | PD.OP ---
Operative Report Preoperative Diagnosis: (1) Compartment syndrome of left upper extremity (2) Cellulitis of left forearm Postoperative Diagnosis: (1) Cellulitis of left forearm (2) Compartment syndrome of left upper extremity Procedure: exploration, excisional debridement, partial closure of forearm fasciotomy wound left side Anesthesia: general Surgeon: Tushar Ahn Telemedicine Physician(s): alfonso Operation and Findings: subcutaneous edema and mild erythema minimal devitalized tissue which was debridement from the fascia, muscle, skin and subcutaneous tissues no necrotic muscles partial closure of the wound Tushar Ahn MD Jul 26, 2016 15:12
[2016-07-26] MEDS ORDERED: DO NOT ADM ANY ANTICOAGULANT DRUGS PRN (16:00)
[2016-07-26 20:40] VITALS: BP 140/89; PULSE 98; RESP 16; TEMP 96.6; O2SAT 95
[2016-07-26] MEDS: DIAZEPAM 10 MG TAB PO PRN (22:37)
[2016-07-26] MEDS: AMITRIPTYLINE HCL 25 MG TAB PO SCH (22:37)
[2016-07-27] VITALS (7 sets, daily range): BP systolic 116–138; BP diastolic 66–86; PULSE 68–93; RESP 16–20; TEMP 95.3–98; O2SAT 94–99
[2016-07-27] MEDS: oxyCODONE/ACETAMINOPHEN 10 MG/325 MG TAB PO PRN ×5 (02:30→22:06)
[2016-07-27] MEDS: MORPHINE SULFATE 4 MG/ML INJ IV PRN ×4 (05:55→19:32)
[2016-07-27] MEDS: CIPROFLOXACIN/DEXT 400 MG/200 ML IV SCH ×2 (06:55→20:30)
[2016-07-27] MEDS: LACTULOSE SYRUP 20 GM/30 ML CUP PO PRN ×2 (06:55→19:38)
[2016-07-27] MEDS: REMOVE OLD PATCH T-DERMAL SCH (09:00)
[2016-07-27] MEDS: DOCUSATE SODIUM 50 MG/SENNA 8.6 MG TAB PO SCH ×2 (09:00→20:30)
[2016-07-27] MEDS: OXYBUTYNIN CHLORIDE 5 MG TAB PO SCH ×4 (09:14→20:31)
[2016-07-27] MEDS: cefTRIAXone INJ 2,000 MG in SODIUM CHLORIDE 0.9% INJ 100 ML IV SCH (09:14)
[2016-07-27] MEDS: NICOTINE 21 MG/24 HR PATCH T-DERMAL SCH (09:15)
[2016-07-27] MEDS: POLYETHYLENE GLYCOL 17 GM PKG PO SCH (09:15)
[2016-07-27] MEDS: SODIUM CHLORIDE 0.9% FLUSH 10 ML FLUSH IV FLUSH SCH ×2 (09:16→20:30)
--- NOTE | 2016-07-27 10:12 | HHI.PR ---
Subjective Remarks Follow-up left upper extremity wound. Complaining of pain controlled with current pain management. Still no BM receiving bowel regimen denies nausea and abdominal pain. Discussed with RN Objective Vitals Vital Signs Date Time Temp Pulse Resp B/P Pulse Ox O2 Delivery O2 Flow Rate FiO2 07/27/16 04:59 98.0 80 16 119/73 99 07/27/16 00:09 97.5 75 18 121/77 98 07/26/16 20:40 96.6 98 16 140/89 95 07/26/16 16:30 98.1 76 14 107/67 91 Nasal Cannula 2 07/26/16 16:15 75 14 106/76 97 07/26/16 16:00 77 12 124/70 96 Nasal Cannula 2 07/26/16 15:45 68 12 136/77 92 Nasal Cannula 4 07/26/16 15:30 71 12 134/76 92 Room Air 07/26/16 15:15 83 16 147/84 95 Room Air 07/26/16 15:07 87 07/26/16 15:07 98.1 87 16 119/87 95 Room Air 07/26/16 12:00 97.0 66 16 144/88 99 I/O 07/26/16 07/26/16 07/26/16 07/27/16 07/27/16 07/27/16 07:00 15:00 23:00 07:00 15:00 23:00 Intake Total 0 ml 600 ml Balance 0 ml 600 ml Intake Oral 0 ml IV Total 200 ml Other 400 ml # Voids 2 2 1 2 Result Diagram: 07/23/1661207/23/16612 Objective Remarks GENERAL: Well-developed, well-nourished, in no acute distress. alert and orientated. In no distress HEENT: Head is normocephalic without any lesions or masses noted. NECK: Supple without any masses. Trachea midline no deviation. No JVD, no bruits are appreciated LUNGS: No use of accessory muscles on inspiration or expiration. ABDOMEN: Soft, nontender. Nondistended. Bowel sounds heard in all 4 quadrants. Negative rebound, negative guarding EXTREMITIES: No cyanosis or clubbing NEUROLOGY: Mood and affect appear appropriate. Cranial nerves II through XII grossly intact. Muscle strength 5/5 in upper and lower extremities bilaterally. Nonfocal LEFT UPPER EXTREMITY: Left arm is bandaged. Tender to palpation. Able to wiggle fingers, though fingers on the left hand are cool to the touch. Decreased capillary refill bilaterally. Erythema noted left proximal arm Procedures 07/21/16 Exploration, forearm fasciotomies both volar and extensor compartments left forearm. 07/22/16 exploration, excisional debridement skin, subcutaneous tissue, fascia and muscles and partial closure left forearm 07/24/16 exploration, excisional debridement and partial closure left forearm fasciotomy wound 07/26/16exploration, excisional debridement, partial closure of forearm fasciotomy wound left side A/P Problem List: (1) Sepsis ICD Code: A41.9 Status: Acute (2) Leukocytosis ICD Code: D72.829 Status: Acute (3) Cellulitis of left forearm ICD Code: L03.114 Status: Acute (4) Febrile illness ICD Code: R50.9 Status: Acute Assessment and Plan Sepsis Patient met criteria for admission with febrile illness, leukocytosis, tachycardia, cellulitis of the left forearm. Patient presented with fever 102. Chest x-ray was clear. Urinalysis was unremarkable. S/p IVFs. - Blood cultures negative to date and wound culture with group A beta strep Left forearm cellulitis With significant edema, decreased capillary refill, concerning for possible compartmental syndrome. X-rays were taken which did not indicate any radiopaque foreign body. CT showed: Severe subcutaneous edema along the medial aspect of the forearm and also involving the anterior and posterior aspects to some extent ; There is associated skin thickening; This pattern is suggestive of a severe cellulitis; No abscess or drainable fluid collection is visualized; The bones and muscles demonstrate no definite abnormality. Consulted hand surgery stat, the pt went for debridement and fasciotomy. - continue antibiotics per ID. On Cipro. Cefazolin switched to IV Rocephin - Wound culture growing group A beta strep. - Continue pain control with a bowel regimen. Percocet added. - d/c IVFs. - follow up with hand surgery and follow-up sonogram shows edema no abscess Anemia/ Thrombocytopenia Anemia likely s/t surgery. Thrombocytopenia appears chronic. - follow CBC and transfuse as needed. -Restart Lovenox if okay with hand surgery History of polysubstance abuse Urine drug screen positive for benzodiazepine. - Cessation instruction. Anxiety/depression Stable- Continue home medications. Interstitial cystitis Patient indicates that he has a malfunctioning bladder stimulator. - Continue home medications. - Outpt follow-up. Right leg wound. Wound care. Watch for infection Constipation. Added MiraLAX . Discussed with RN to provide as needed medications for constipation DVT prevention: SCDs and early ambulation Discharge Planning Discharge per ID and hand surgery Problem Qualifiers (1) Sepsis: Qualified Code: A40.0 - Sepsis due to group A Streptococcus (2) Leukocytosis: Qualified Code: D72.829 - Leukocytosis, unspecified type Gustabo Milligan MD Jul 27, 2016 10:12 Qualified Code: D72.829 - Leukocytosis, unspecified type Gustabo Milligan MD Jul 27, 2016 10:12
[2016-07-27] MEDS: AMITRIPTYLINE HCL 25 MG TAB PO SCH (20:30)
--- NOTE | 2016-07-27 20:41 | MP ---
cc: TARI VORA MD DATE OF SURGERY: 07/26/2016. PREOPERATIVE DIAGNOSIS: Forearm fasciotomy wounds, left forearm. POSTOPERATIVE DIAGNOSIS: Forearm fasciotomy wounds, left forearm. OPERATIVE PROCEDURE PERFORMED: Excisional debridement, wash and partial closure of forearm fasciotomy wound, left forearm. SURGEON: Tari Vora M.D. ANESTHESIA: General. ESTIMATED BLOOD LOSS: 10 cc. TOURNIQUET TIME: No tourniquet was used. DISPOSITION: The patient was recovered and sent to the recovery room in stable condition. INDICATIONS FOR THE PROCEDURE: The patient is a 51-year-old male with history of infection to the left forearm. The patient underwent incision and drainage and a forearm fasciotomy. He underwent multiple debridements and partial closures. He was brought in for repeat procedure and partial closure of the wounds. The patient was explained the risks and benefits of the procedure. DESCRIPTION OF THE PROCEDURE IN DETAIL: The patient was brought to the operating room and under general anesthesia the left upper extremity was thoroughly prepped and draped. Intraoperative findings included open forearm fasciotomy wounds on the volar and extensor compartment with Vesseloops in place. Minimal devitalized tissue noted in the skin and subcutaneous muscle and fascia regions. This was debrided by sharp dissection as well as using a curette. No evidence of necrotic muscles was noted. A thorough wash was given using normal saline mixed with irrigant. The previously placed packing of the wound on the posterior aspect was removed. The loops were then tightened and partial closure of the wound both proximal and distal region of the forearm fasciotomy wounds was carried out. The muscle compartment was supple after the partial closure. Xeroform and bacitracin dressing applied. Bulky hand dressing was applied which was held in place by Sof-Rol and bias hand wrap. He had good distal circulation at the end of the procedure. The patient was recovered and sent to the recovery room in stable condition. The plan will be to bring the patient back to the operating room in two days time for wash, excisional debridement, possible closure of the wounds. Tari Vora MD SE/MANASA /3:16 PM /8:32 PM DUNIA
[2016-07-28] MEDS: MORPHINE SULFATE 4 MG/ML INJ IV PRN ×5 (00:01→21:58)
[2016-07-28 00:35] VITALS: BP 132/75; PULSE 82; RESP 16; TEMP 97.1; O2SAT 96
[2016-07-28] MEDS: oxyCODONE/ACETAMINOPHEN 10 MG/325 MG TAB PO PRN ×4 (02:43→19:55)
[2016-07-28] MEDS ORDERED: SIMETHICONE 125 MG CHEWABLE TAB PO PRN (03:00)
[2016-07-28 04:58] VITALS: BP 116/70; PULSE 75; RESP 18; TEMP 97.7; O2SAT 96
[2016-07-28 08:00] VITALS: BP 128/81; PULSE 68; RESP 20; TEMP 96.3; O2SAT 97
[2016-07-28] MEDS: CIPROFLOXACIN/DEXT 400 MG/200 ML IV SCH ×2 (08:37→21:58)
[2016-07-28] MEDS: POLYETHYLENE GLYCOL 17 GM PKG PO SCH (08:37)
[2016-07-28] MEDS: cefTRIAXone INJ 2,000 MG in SODIUM CHLORIDE 0.9% INJ 100 ML IV SCH (08:38)
[2016-07-28] MEDS: OXYBUTYNIN CHLORIDE 5 MG TAB PO SCH ×4 (08:38→21:59)
[2016-07-28] MEDS: REMOVE OLD PATCH T-DERMAL SCH (08:38)
[2016-07-28] MEDS: NICOTINE 21 MG/24 HR PATCH T-DERMAL SCH (08:38)
[2016-07-28] MEDS: SODIUM CHLORIDE 0.9% FLUSH 10 ML FLUSH IV FLUSH SCH ×2 (08:38→21:59)
[2016-07-28] MEDS: DOCUSATE SODIUM 50 MG/SENNA 8.6 MG TAB PO SCH ×2 (08:39→21:00)
--- NOTE | 2016-07-28 11:47 | HHI.PR ---
Subjective Remarks Follow-up left upper extremity cellulitis and constipation. States he is doing okay stooling. Discussed with RN to start Lovenox if okay with surgery Objective Vitals Vital Signs Date Time Temp Pulse Resp B/P Pulse Ox O2 Delivery O2 Flow Rate FiO2 07/28/16 08:00 96.3 68 20 128/81 97 07/28/16 04:58 97.7 75 18 116/70 96 07/28/16 00:35 97.1 82 16 132/75 96 07/27/16 21:28 96.1 87 16 116/74 96 07/27/16 20:00 86 07/27/16 16:00 96.9 93 20 117/66 97 07/27/16 12:00 95.3 80 20 138/86 98 I/O 07/27/16 07/27/16 07/27/16 07/28/16 07/28/16 07/28/16 07:00 15:00 23:00 07:00 15:00 23:00 Intake Total 900 ml Balance 900 ml Intake Oral 900 ml # Voids 2 1 2 Imaging Last Impressions Upper Extremity Ultrasound 07/24/16 0000 Signed Impressions: Service Date/Time: Sunday, July 24, 2016 18:53 - CONCLUSION: Subcutaneous edema without abscess. Loy Russell Jr., MD Upper Extremity CT 07/21/16 0000 Signed Impressions: Service Date/Time: Thursday, July 21, 2016 11:16 - CONCLUSION: 1. Severe subcutaneous edema along the medial aspect of the forearm and also involving the anterior and posterior aspects to some extent. There is associated skin thickening. This pattern is suggestive of a severe cellulitis. No abscess or drainable fluid collection is visualized. 2. The bones and muscles demonstrate no definite abnormality. Van Barber MD Chest X-Ray 07/20/162006 Signed Impressions: Service Date/Time: Wednesday, July 20, 2016 20:44 - CONCLUSION: No acute disease. Compa Grant MD FACR Tibia/Fibula X-Ray 07/20/161999 Signed Impressions: Service Date/Time: Wednesday, July 20, 2016 20:34 - CONCLUSION: Negative for radiopaque foreign body or osteomyelitis. Compa Grant MD FACR Radius/Ulna X-Ray 07/20/161999 Signed Impressions: Service Date/Time: Wednesday, July 20, 2016 20:40 - CONCLUSION: Negative for radiopaque foreign body. Compa Grant MD FACR Objective Remarks GENERAL: Well-developed, well-nourished, in no acute distress. alert and orientated. In no distress HEENT: Head is normocephalic without any lesions or masses noted. NECK: Supple without any masses. Trachea midline no deviation. No JVD, no bruits are appreciated LUNGS: No use of accessory muscles on inspiration or expiration. ABDOMEN: Soft, nontender. Nondistended. Bowel sounds heard in all 4 quadrants. EXTREMITIES: No cyanosis or clubbing NEUROLOGY: Mood and affect appear appropriate. Cranial nerves II through XII grossly intact. Muscle strength 5/5 in upper and lower extremities bilaterally. Nonfocal LEFT UPPER EXTREMITY: Left arm is bandaged. Tender to palpation. Able to wiggle fingers, though fingers on the left hand are cool to the touch. Improving erythema noted left proximal arm Procedures 07/21/16 Exploration, forearm fasciotomies both volar and extensor compartments left forearm. 07/22/16 exploration, excisional debridement skin, subcutaneous tissue, fascia and muscles and partial closure left forearm 07/24/16 exploration, excisional debridement and partial closure left forearm fasciotomy wound 07/26/16exploration, excisional debridement, partial closure of forearm fasciotomy wound left side A/P Problem List: (1) Sepsis ICD Code: A41.9 Status: Acute (2) Leukocytosis ICD Code: D72.829 Status: Acute (3) Cellulitis of left forearm ICD Code: L03.114 Status: Acute (4) Febrile illness ICD Code: R50.9 Status: Acute Assessment and Plan Sepsis Patient met criteria for admission with febrile illness, leukocytosis, tachycardia, cellulitis of the left forearm. Patient presented with fever 102. Chest x-ray was clear. Urinalysis was unremarkable. S/p IVFs. - Blood cultures negative to date and wound culture with group A beta strep Left forearm cellulitis With significant edema, decreased capillary refill, concerning for possible compartmental syndrome. X-rays were taken which did not indicate any radiopaque foreign body. CT showed: Severe subcutaneous edema along the medial aspect of the forearm and also involving the anterior and posterior aspects to some extent ; There is associated skin thickening; This pattern is suggestive of a severe cellulitis; No abscess or drainable fluid collection is visualized; The bones and muscles demonstrate no definite abnormality. Consulted hand surgery and has had multiple surgeries - continue antibiotics per ID. On and IV Rocephin - Wound culture growing group A beta strep. - Continue pain control with a bowel regimen. Percocet added. - d/c IVFs. - follow up with hand surgery for surgery tomorrow Anemia/ Thrombocytopenia Anemia likely s/t surgery. Thrombocytopenia appears chronic. - follow CBC and transfuse as needed. -Restart Lovenox if okay with hand surgery History of polysubstance abuse Urine drug screen positive for benzodiazepine. - Cessation instruction. Anxiety/depression Stable- Continue home medications. Interstitial cystitis Patient indicates that he has a malfunctioning bladder stimulator. - Continue home medications. - Outpt follow-up. Right leg wound. Wound care. Watch for infection Constipation. Stooling DVT prevention: SCDs and early ambulation. Lovenox if okay with hand surgery Discharge Planning Discharge per ID and hand surgery Problem Qualifiers (1) Sepsis: Qualified Code: A40.0 - Sepsis due to group A Streptococcus (2) Leukocytosis: Qualified Code: D72.829 - Leukocytosis, unspecified type Gustabo Milligan MD Jul 28, 2016 11:46 Gustabo Milligan MD Jul 28, 2016 11:46
[2016-07-28 12:00] VITALS: BP 128/82; PULSE 69; RESP 20; TEMP 96.6; O2SAT 98
[2016-07-28 16:00] VITALS: BP 121/86; PULSE 90; RESP 20; TEMP 97.4; O2SAT 98
[2016-07-28 20:00] VITALS: BP 135/79; PULSE 87; PULSE 90; RESP 18; TEMP 97.9; O2SAT 96
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
[2016-07-28] MEDS: AMITRIPTYLINE HCL 25 MG TAB PO SCH (21:58)
[2016-07-29] VITALS (8 sets, daily range): BP systolic 124–151; BP diastolic 61–105; PULSE 75–95; RESP 18–19; TEMP 96.2–98.1; O2SAT 95–97
[2016-07-29] MEDS: oxyCODONE/ACETAMINOPHEN 10 MG/325 MG TAB PO PRN ×4 (00:16→21:50)
[2016-07-29] MEDS ORDERED: PROPOFOL 200 MG/20 ML AMP IV ONE (08:06)
[2016-07-29] MEDS ORDERED: ONDANSETRON HCL 4 MG/2 ML VIAL IV PUSH ONE (08:06)
[2016-07-29] MEDS ORDERED: PHENYLEPH/NS 1000 MCG/10 ML SYR IV ONE (08:06)
[2016-07-29] MEDS ORDERED: fentaNYL CITRATE 250 MCG/5 ML AMP IV ONE (08:08)
[2016-07-29] MEDS: MORPHINE SULFATE 4 MG/ML INJ IV PRN ×4 (08:09→20:30)
[2016-07-29] MEDS: CIPROFLOXACIN/DEXT 400 MG/200 ML IV SCH (08:23)
[2016-07-29] MEDS: DOCUSATE SODIUM 50 MG/SENNA 8.6 MG TAB PO SCH ×2 (09:00→20:08)
[2016-07-29] MEDS: SODIUM CHLORIDE 0.9% FLUSH 10 ML FLUSH IV FLUSH SCH ×2 (09:00→20:09)
[2016-07-29] MEDS: REMOVE OLD PATCH T-DERMAL SCH (09:00)
[2016-07-29] MEDS ORDERED: BUPIVACAINE HCL PF 0.5% 30 ML VIAL ONE (09:09)
[2016-07-29] MEDS ORDERED: LIDOCAINE HCL 2% 50 ML VIAL ONE (09:09)
[2016-07-29] MEDS ORDERED: NEOMYCIN/POLYMYXIN 1 ML G.U. IRRIGANT ONE (09:10)
[2016-07-29] MEDS ORDERED: DEXAMETHASONE SOD PHOS 4 MG/ML VIAL ONE (09:15)
[2016-07-29] MEDS ORDERED: FAMOTIDINE 20 MG/2 ML VIAL ONE (09:15)
[2016-07-29] MEDS ORDERED: MIDAZOLAM HCL 2 MG/2 ML VIAL ONE (09:15)
[2016-07-29] MEDS ORDERED: fentaNYL CITRATE 250 MCG/5 ML AMP ONE (09:15)
[2016-07-29] MEDS ORDERED: HYDROmorphone HCL PF 2 MG/ML VIAL ONE (09:19)
[2016-07-29] MEDS ORDERED: BACITRACIN TOP OINT 15 GM TUBE ONE (09:40)
[2016-07-29] MEDS ORDERED: BACITRACIN TOP OINT 15 GM TUBE TOPICAL ONE (10:30)
--- NOTE | 2016-07-29 10:50 | PD.OP ---
Operative Report Preoperative Diagnosis: (1) Cellulitis of left forearm (2) Compartment syndrome of left upper extremity Postoperative Diagnosis: (1) Cellulitis of left forearm (2) Compartment syndrome of left upper extremity Procedure: excisional debridement, wash and partial closure forearm fasciotomy wounds left forearm Anesthesia: general Surgeon: Tushar Ahn [employer]ycler [employer] Driver Truck Driver(s): alfonso Operation and Findings: minimal devitalized tissue of the skin, subcutaneous tissue and fascia Tushar Ahn MD Jul 29, 2016 10:50 Tushar Ahn MD Jul 29, 2016 10:50
[2016-07-29] MEDS ORDERED: NEOMYCIN/POLYMYXIN 1 ML G.U. IRRIGANT IRRIGATION ONE (12:00)
[2016-07-29] MEDS: POLYETHYLENE GLYCOL 17 GM PKG PO SCH (12:13)
[2016-07-29] MEDS: OXYBUTYNIN CHLORIDE 5 MG TAB PO SCH ×4 (12:14→20:08)
[2016-07-29] MEDS: NICOTINE 21 MG/24 HR PATCH T-DERMAL SCH ×2 (12:15→12:30)
[2016-07-29] MEDS: cefTRIAXone INJ 2,000 MG in SODIUM CHLORIDE 0.9% INJ 100 ML IV SCH (12:16)
--- NOTE | 2016-07-29 12:42 | HHI.PR ---
Subjective Remarks Follow-up left upper extremity cellulitis. Tolerated surgery today. Complaining of right forearm pain with swelling and redness. Discussed with hand surgery to obtain sonogram to evaluate for abscess. Discussed with RN Objective Vitals Vital Signs Date Time Temp Pulse Resp B/P Pulse Ox O2 Delivery O2 Flow Rate FiO2 07/29/16 10:58 97.9 87 14 135/66 99 Simple Mask 8 07/29/16 08:00 96.8 95 18 145/105 96 07/29/16 04:00 98.1 81 18 124/93 96 07/29/16 00:00 97.1 75 18 147/75 96 07/28/16 20:00 90 07/28/16 20:00 97.9 87 18 135/79 96 07/28/16 16:00 97.4 90 20 121/86 98 I/O 07/28/16 07/28/16 07/28/16 07/29/16 07/29/16 07/29/16 07:00 15:00 23:00 07:00 15:00 23:00 Intake Total 1000 ml 240 ml 800 ml Balance 1000 ml 240 ml 800 ml Intake Oral 1000 ml 240 ml Other 800 ml # Voids 2 4 2 6 # Bowel Movements 1 0 1 Imaging Last Impressions Upper Extremity Ultrasound 07/24/16 0000 Signed Impressions: Service Date/Time: Sunday, July 24, 2016 18:53 - CONCLUSION: Subcutaneous edema without abscess. Loy Russell Jr., MD Upper Extremity CT 07/21/16 0000 Signed Impressions: Service Date/Time: Thursday, July 21, 2016 11:16 - CONCLUSION: 1. Severe subcutaneous edema along the medial aspect of the forearm and also involving the anterior and posterior aspects to some extent. There is associated skin thickening. This pattern is suggestive of a severe cellulitis. No abscess or drainable fluid collection is visualized. 2. The bones and muscles demonstrate no definite abnormality. Van Barber MD Chest X-Ray 07/20/162006 Signed Impressions: Service Date/Time: Wednesday, July 20, 2016 20:44 - CONCLUSION: No acute disease. Compa Grant MD FACR Tibia/Fibula X-Ray 07/20/161999 Signed Impressions: Service Date/Time: Wednesday, July 20, 2016 20:34 - CONCLUSION: Negative for radiopaque foreign body or osteomyelitis. Compa Grant MD FACR Radius/Ulna X-Ray 07/20/161999 Signed Impressions: Service Date/Time: Wednesday, July 20, 2016 20:40 - CONCLUSION: Negative for radiopaque foreign body. Compa Grant MD FACR Objective Remarks GENERAL: Well-developed, well-nourished, in no acute distress. alert and orientated. In no distress HEENT: Head is normocephalic without any lesions or masses noted. NECK: Supple without any masses. Trachea midline no deviation. No JVD, no bruits are appreciated CVS: Regular rate and rhythm no murmur LUNGS: No use of accessory muscles on inspiration or expiration. ABDOMEN: Soft, nontender. Nondistended. Bowel sounds heard in all 4 quadrants. EXTREMITIES: No cyanosis or clubbing NEUROLOGY: Mood and affect appear appropriate. Cranial nerves II through XII grossly intact. Muscle strength 5/5 in upper and lower extremities bilaterally. Nonfocal LEFT UPPER EXTREMITY: Left arm is bandaged. Tender to palpation. Able to wiggle fingers, though fingers on the left hand are cool to the touch. Resolving erythema left proximal arm Right upper extremity: Right forearm swollen red and tender. Full range of movement right elbow and right wrist Procedures 07/21/16 Exploration, forearm fasciotomies both volar and extensor compartments left forearm. 07/22/16 exploration, excisional debridement skin, subcutaneous tissue, fascia and muscles and partial closure left forearm 07/24/16 exploration, excisional debridement and partial closure left forearm fasciotomy wound 07/26/16exploration, excisional debridement, partial closure of forearm fasciotomy wound left side 07/29/16excisional debridement, wash and partial closure forearm fasciotomy wounds left forearm A/P Problem List: (1) Sepsis ICD Code: A41.9 Status: Acute (2) Leukocytosis ICD Code: D72.829 Status: Acute (3) Cellulitis of left forearm ICD Code: L03.114 Status: Acute (4) Febrile illness ICD Code: R50.9 Status: Acute Assessment and Plan Sepsis Patient met criteria for admission with febrile illness, leukocytosis, tachycardia, cellulitis of the left forearm. Patient presented with fever 102. Chest x-ray was clear. Urinalysis was unremarkable. S/p IVFs. - Blood cultures negative to date and wound culture with group A beta strep Left forearm cellulitis With significant edema, decreased capillary refill, concerning for possible compartmental syndrome. X-rays were taken which did not indicate any radiopaque foreign body. CT showed: Severe subcutaneous edema along the medial aspect of the forearm and also involving the anterior and posterior aspects to some extent ; There is associated skin thickening; This pattern is suggestive of a severe cellulitis; No abscess or drainable fluid collection is visualized; The bones and muscles demonstrate no definite abnormality. Consulted hand surgery and has had multiple surgeries - continue antibiotics per ID. On IV Cipro and IV Rocephin - Wound culture growing group A beta strep. - Continue pain control with a bowel regimen. Percocet added. - d/c IVFs. Right forearm swelling, redness and tenderness suspect abscess. Obtain sonogram. Warm compress, elevation and pain management. Patient already on IV antibiotics. We'll monitor Anemia/ Thrombocytopenia Anemia likely s/t surgery. Thrombocytopenia appears chronic. - follow CBC and transfuse as needed. -Restart Lovenox if okay with hand surgery History of polysubstance abuse Urine drug screen positive for benzodiazepine. - Cessation instruction. Anxiety/depression Stable- Continue home medications. Interstitial cystitis Patient indicates that he has a malfunctioning bladder stimulator. - Continue home medications. - Outpt follow-up. Right leg wound. Wound care. Watch for infection Constipation. Stooling DVT prevention: SCDs and early ambulation. Lovenox if okay with hand surgery Discharge Planning Discharge per ID and hand surgery Problem Qualifiers (1) Sepsis: Qualified Code: A40.0 - Sepsis due to group A Streptococcus (2) Leukocytosis: Qualified Code: D72.829 - Leukocytosis, unspecified type Gustabo Milligan MD Jul 29, 2016 12:42
--- NOTE | 2016-07-29 12:51 | MP ---
cc: TARI VORA MD DATE OF SURGERY July 29, 2016 PREOPERATIVE DIAGNOSIS Forearm fasciotomy wounds left forearm. POSTOPERATIVE DIAGNOSIS Forearm fasciotomy wounds left forearm. PROCEDURE Excisional debridement and partial closure of forearm fasciotomy wounds left forearm. SURGEON Dr. Vora ANESTHESIA General. ESTIMATED BLOOD LOSS 10 cc. TOURNIQUET TIME No tourniquet was used. CONDITION The patient was recovered and sent to the recovery room in stable condition. INDICATIONS The patient is 51-year-old male admitted with history of cellulitis and abscess of the left forearm. He underwent incision and drainage and forearm fasciotomy. The patient was brought in multiple times for excisional debridement and partial closure of the wound. He was consented for excisional debridement and partial closure of the wound. The patient was explained the risks and benefits of the procedure. PROCEDURE The patient was brought to the operating room under general anesthesia. The left upper extremity was thoroughly prepped and draped. The previously placed loops were lifted up and excisional debridement of skin, subcutaneous tissue and fascia was carried out. The forearm muscles appeared viable. Thorough wash of the wound was carried out using normal saline mixed with irrigant. The packing placed on the posterior aspect was removed. A liter of solution was used. I was able to obtain closure of most of the wounds both on the volar and extensor compartment with a few inches of open wound remaining. Xeroform and bacitracin dressing applied. Bulky hand dressing was applied which was held in place by a bias hand wrap and Sof-Rol. He had good distal circulation at the end of the procedure. He was recovered and sent to the recovery room in stable condition. PLAN The plan will be to bring the patient back in two days' time for possible full closure of the forearm fasciotomy wounds. Tari Vora MD SE/TYESHA /10:54 AM /12:45 PM DUNIA
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
[2016-07-29] MEDS ORDERED: Vancomycin Consult Pharmacy 1 EA OTHER SCH (15:15)
--- NOTE | 2016-07-29 15:26 | RADHPO ---
EXAM DATE/TIME: 07/29/2016 14:36 [facility] COMPARISON: No previous studies available for comparison. INDICATIONS : Right forearm pain, swelling, and redness. MEDICAL HISTORY : Hypertension. Gastroesophageal reflux disease. Interstitional cystitis. SURGICAL HISTORY : Tonsillectomy. Implanted bladder stimulator. Right foot surgery. Left elbow surgery. ENCOUNTER: Initial ACUITY: 4-6 days PAIN SCORE: 6/10 LOCATION: Right forearm. AREA EVALUATED: Right mid forearm. Right posterior hand. FINDINGS: There is occlusive thrombus involving the right mid forearm cephalic vein with associated soft tissue edema. There is also occlusive thrombus in a mid dorsal hand vein. These correspond to prior IV inse rtion site spur patient history. No focal drainable fluid collections are demonstrated. CONCLUSION: 1. Findings consistent with thrombophlebitis of the right mid forearm cephalic vein and dorsal hand v ein which correspond to prior IV sites per patient history. No sonographic evidence for abscess at th is time. Steven Franklin MD on July 29, 2016 at 15:20 Board Certified Radiologist. This report was verified electronically.
[2016-07-29] MEDS: VANCOMYCIN 1,000 MG/NS 250 ML IV SCH ×2 (16:20)
[2016-07-29] MEDS: AMITRIPTYLINE HCL 25 MG TAB PO SCH (20:07)
[2016-07-29] MEDS: DIAZEPAM 10 MG TAB PO PRN (21:57)
[2016-07-30] VITALS: BP 146/74; PULSE 79; RESP 20; TEMP 96.5; O2SAT 98
[2016-07-30] MEDS: MORPHINE SULFATE 4 MG/ML INJ IV PRN ×6 (00:27→22:44)
[2016-07-30] MEDS: oxyCODONE/ACETAMINOPHEN 10 MG/325 MG TAB PO PRN ×5 (02:42→20:22)
[2016-07-30 04:00] VITALS: BP 140/65; PULSE 66; RESP 18; TEMP 97.5; O2SAT 98
[2016-07-30] MEDS: VANCOMYCIN 1,000 MG/NS 250 ML IV SCH ×4 (04:32→17:21)
[2016-07-30 08:00] VITALS: BP 138/74; PULSE 77; PULSE 88; RESP 18; TEMP 96.7; O2SAT 99
[2016-07-30] MEDS: LIDOCAINE HCL 2% 50 ML VIAL ONE (08:23)
[2016-07-30] MEDS: BUPIVACAINE HCL PF 0.5% 30 ML VIAL ONE (08:23)
[2016-07-30] MEDS: DIAZEPAM 10 MG TAB PO PRN ×2 (08:52→20:21)
[2016-07-30] MEDS: OXYBUTYNIN CHLORIDE 5 MG TAB PO SCH ×4 (08:53→20:21)
[2016-07-30] MEDS: REMOVE OLD PATCH T-DERMAL SCH (08:54)
[2016-07-30] MEDS: NICOTINE 21 MG/24 HR PATCH T-DERMAL SCH (08:54)
[2016-07-30] MEDS: DOCUSATE SODIUM 50 MG/SENNA 8.6 MG TAB PO SCH ×2 (08:55→21:00)
[2016-07-30] MEDS: POLYETHYLENE GLYCOL 17 GM PKG PO SCH (08:55)
[2016-07-30] MEDS: SODIUM CHLORIDE 0.9% FLUSH 10 ML FLUSH IV FLUSH SCH ×2 (08:55→22:44)
--- NOTE | 2016-07-30 10:59 | HHI.PR ---
Subjective Remarks Follow-up left upper extremity cellulitis and superficial thrombophlebitis right forearm. Complaining of extremity pain. He is stooling. Repeat surgery scheduled for tomorrow. Discussed with RN Objective Vitals Vital Signs Date Time Temp Pulse Resp B/P Pulse Ox O2 Delivery O2 Flow Rate FiO2 07/30/16 08:00 96.7 77 18 138/74 99 07/30/16 04:00 97.5 66 18 140/65 98 07/30/16 00:00 96.5 79 20 146/74 98 07/29/16 22:40 84 07/29/16 20:00 96.2 90 19 145/69 97 07/29/16 19:47 90 07/29/16 16:00 96.5 81 18 151/61 96 07/29/16 12:00 96.3 94 19 145/86 95 07/29/16 11:45 144/68 3 07/29/16 11:30 98.0 93 16 144/62 100 Nasal Cannula 3 07/29/16 11:15 87 15 150/70 97 Nasal Cannula 3 07/29/16 10:58 97.9 87 14 135/66 99 Simple Mask 8 I/O 07/29/16 07/29/16 07/29/16 07/30/16 07/30/16 07/30/16 07:00 15:00 23:00 07:00 15:00 23:00 Intake Total 1140 ml 360 ml 618 ml Balance 1140 ml 360 ml 618 ml Intake Oral 240 ml 360 ml 360 ml IV Total 100 ml 258 ml Other 800 ml # Voids 6 2 2 # Bowel Movements 1 0 0 Imaging Last Impressions Upper Extremity Ultrasound 07/29/16 0000 Signed Impressions: Service Date/Time: Friday, July 29, 2016 14:36 - CONCLUSION: 1. Findings consistent with thrombophlebitis of the right mid forearm cephalic vein and dorsal hand vein which correspond to prior IV sites per patient history. No sonographic evidence for abscess at this time. Steven Franklin MD Upper Extremity CT 07/21/16 0000 Signed Impressions: Service Date/Time: Thursday, July 21, 2016 11:16 - CONCLUSION: 1. Severe subcutaneous edema along the medial aspect of the forearm and also involving the anterior and posterior aspects to some extent. There is associated skin thickening. This pattern is suggestive of a severe cellulitis. No abscess or drainable fluid collection is visualized. 2. The bones and muscles demonstrate no definite abnormality. Van Barber MD Chest X-Ray 07/20/162006 Signed Impressions: Service Date/Time: Wednesday, July 20, 2016 20:44 - CONCLUSION: No acute disease. Compa Grant MD FACR Tibia/Fibula X-Ray 07/20/161999 Signed Impressions: Service Date/Time: Wednesday, July 20, 2016 20:34 - CONCLUSION: Negative for radiopaque foreign body or osteomyelitis. Compa Grant MD FACR Radius/Ulna X-Ray 07/20/161999 Signed Impressions: Service Date/Time: Wednesday, July 20, 2016 20:40 - CONCLUSION: Negative for radiopaque foreign body. Compa Grant MD FACR Objective Remarks GENERAL: Well-developed, well-nourished, in no acute distress. alert and orientated. In no distress HEENT: Head is normocephalic without any lesions or masses noted. NECK: Supple without any masses. Trachea midline no deviation. No JVD, no bruits are appreciated CVS: Regular rate and rhythm no murmur LUNGS: No use of accessory muscles on inspiration or expiration. ABDOMEN: Soft, nontender. Nondistended. Bowel sounds heard in all 4 quadrants. EXTREMITIES: No cyanosis or clubbing NEUROLOGY: Mood and affect appear appropriate. Cranial nerves II through XII grossly intact. Muscle strength 5/5 in upper and lower extremities bilaterally. Nonfocal LEFT UPPER EXTREMITY: Left arm is bandaged. Tender to palpation. Able to wiggle fingers, though fingers on the left hand are cool to the touch. Resolving erythema left proximal arm Right upper extremity: Right forearm swollen red and tender. Full range of movement right elbow and right wrist Procedures 07/21/16 Exploration, forearm fasciotomies both volar and extensor compartments left forearm. 07/22/16 exploration, excisional debridement skin, subcutaneous tissue, fascia and muscles and partial closure left forearm 07/24/16 exploration, excisional debridement and partial closure left forearm fasciotomy wound 07/26/16exploration, excisional debridement, partial closure of forearm fasciotomy wound left side 07/29/16excisional debridement, wash and partial closure forearm fasciotomy wounds left forearm A/P Problem List: (1) Sepsis ICD Code: A41.9 Status: Acute (2) Leukocytosis ICD Code: D72.829 Status: Acute (3) Cellulitis of left forearm ICD Code: L03.114 Status: Acute (4) Febrile illness ICD Code: R50.9 Status: Acute Assessment and Plan Sepsis Patient met criteria for admission with febrile illness, leukocytosis, tachycardia, cellulitis of the left forearm. Patient presented with fever 102. Chest x-ray was clear. Urinalysis was unremarkable. S/p IVFs. - Blood cultures negative to date and wound culture with group A beta strep Left forearm cellulitis With significant edema, decreased capillary refill, concerning for possible compartmental syndrome. X-rays were taken which did not indicate any radiopaque foreign body. CT showed: Severe subcutaneous edema along the medial aspect of the forearm and also involving the anterior and posterior aspects to some extent ; There is associated skin thickening; This pattern is suggestive of a severe cellulitis; No abscess or drainable fluid collection is visualized; The bones and muscles demonstrate no definite abnormality. Consulted hand surgery and has had multiple surgeries - continue antibiotics per ID. On IV vancomycin and IV Rocephin - Wound culture growing group A beta strep. - Continue pain control with a bowel regimen. Percocet added. - d/c IVFs. - Patient will have another surgery tomorrow by hand surgery. Right forearm swelling, redness and tenderness secondary to superficial thrombophlebitis from IV. Warm compress, elevation and pain management. We'll monitor Anemia/ Thrombocytopenia Anemia likely s/t surgery. Thrombocytopenia appears chronic. - follow CBC and transfuse as needed. - Lovenox on hold by hand surgery History of polysubstance abuse Urine drug screen positive for benzodiazepine. - Cessation instruction. Anxiety/depression Stable- Continue home medications. Interstitial cystitis Patient indicates that he has a malfunctioning bladder stimulator. - Continue home medications. - Outpt follow-up. Right leg wound. Wound care. Watch for infection Constipation. Stooling DVT prevention: SCDs and early ambulation. Lovenox if okay with hand surgery Discharge Planning Discharge per ID and hand surgery Problem Qualifiers (1) Sepsis: Qualified Code: A40.0 - Sepsis due to group A Streptococcus (2) Leukocytosis: Qualified Code: D72.829 - Leukocytosis, unspecified type Gustabo Milligan MD Jul 30, 2016 10:59
[2016-07-30 12:00] VITALS: BP 134/73; PULSE 73; RESP 20; TEMP 97.2; O2SAT 96
[2016-07-30] MEDS: cefTRIAXone INJ 2,000 MG in SODIUM CHLORIDE 0.9% INJ 100 ML IV SCH (13:44)
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
[2016-07-30] MEDS ORDERED: PHARMACY ORDERED LAB ONE (15:45)
[2016-07-30 16:00] VITALS: BP 147/80; PULSE 81; RESP 19; TEMP 97.4; O2SAT 96
[2016-07-30 20:00] VITALS: BP 159/86; PULSE 93; RESP 20; TEMP 97.8; O2SAT 98
[2016-07-30] MEDS: AMITRIPTYLINE HCL 25 MG TAB PO SCH (20:21)
[2016-07-30] MEDS ORDERED: HYDROmorphone HCL PF 1 MG/ML VIAL IV ONE (23:30)
[2016-07-31] VITALS (10 sets, daily range): BP systolic 126–194; BP diastolic 66–122; PULSE 72–105; RESP 20–21; TEMP 97–97.9; O2SAT 96–98
[2016-07-31] MEDS: oxyCODONE/ACETAMINOPHEN 10 MG/325 MG TAB PO PRN ×4 (01:30→20:06)
[2016-07-31] MEDS: DIAZEPAM 10 MG TAB PO PRN ×2 (01:33→18:24)
[2016-07-31] MEDS: VANCOMYCIN 1,000 MG/NS 250 ML IV SCH ×4 (03:19→16:00)
[2016-07-31] MEDS: MORPHINE SULFATE 4 MG/ML INJ IV PRN ×5 (03:20→22:10)
[2016-07-31] MEDS ORDERED: NEOMYCIN/POLYMYXIN 1 ML G.U. IRRIGANT ONE ×2 (06:33→07:36)
[2016-07-31] MEDS ORDERED: MIDAZOLAM HCL 2 MG/2 ML VIAL ONE (06:51)
[2016-07-31] MEDS ORDERED: FAMOTIDINE 20 MG/2 ML VIAL ONE (06:52)
[2016-07-31] MEDS ORDERED: HYDROmorphone HCL PF 1 MG/ML VIAL ONE (06:54)
[2016-07-31] MEDS ORDERED: LIDOCAINE HCL 2% 50 ML VIAL ONE ×2 (07:09→07:21)
[2016-07-31] MEDS ORDERED: BUPIVACAINE HCL PF 0.5% 30 ML VIAL ONE ×2 (07:09→07:21)
[2016-07-31] MEDS ORDERED: NEOMYCIN/POLYMYXIN 1 ML G.U. IRRIGANT TOPICAL ONE (07:22)
[2016-07-31] MEDS ORDERED: BACITRACIN TOP OINT 15 GM TUBE ONE (07:40)
--- NOTE | 2016-07-31 07:54 | PD.OP ---
Operative Report Preoperative Diagnosis: (1) Compartment syndrome of left upper extremity (2) Cellulitis of left forearm Postoperative Diagnosis: (1) Compartment syndrome of left upper extremity (2) Cellulitis of left forearm Procedure: excisional debridement, wash, closure of forearm fasciotomy wounds left forearm Anesthesia: general Surgeon: Tushar Ahn Bottoming Room Inspector(s): alfonso Operation and Findings: forearm fasciotomy wounds over the volar and extensor compartments minimal devitalized tissue which was excised wounds closed with gonzales Tushar Ahn MD Jul 31, 2016 07:54
--- NOTE | 2016-07-31 08:53 | MP ---
cc: TARI VORA MD DATE OF SURGERY July 31, 2016 PREOPERATIVE DIAGNOSIS Forearm fasciotomy wounds left forearm. POSTOPERATIVE DIAGNOSIS Forearm fasciotomy wounds left forearm. PROCEDURE Excisional debridement, wash and closure of forearm fasciotomy wounds left forearm. SURGEON Dr. Vora ANESTHESIA General. ESTIMATED BLOOD LOSS Minimal. TOURNIQUET TIME No tourniquet was used. CONDITION The patient was recovered and sent to the PACU in stable condition. INDICATIONS FOR PROCEDURE The patient is a 51-year-old male admitted with history of abscess and cellulitis of the left forearm. He underwent incision and drainage and compartment releases of both volar and extensor compartments. The patient has also undergone multiple excisional debridements, wash and partial closure. He was brought in today for excisional debridement and possible closure of the forearm fasciotomy wounds. The patient was explained the risks and benefits of the procedure. The patient was brought to the operating room. Under general anesthesia the left upper extremity was thoroughly prepped and draped. The previously placed vessel loops were removed. Thorough wash and excisional debridement of minimal devitalized tissue was carried out. Thorough wash of the wound was carried out using normal saline mixed with irrigant. The volar forearm fasciotomy and extensor forearm fasciotomy wounds were then approximated using staplers. The packing over the posterior aspect was removed and debrided, washed and repacked. The wound over the posterior aspect measures about 2 cm in length which will be left to healing by secondary intention. About 7 cc of local anesthesia containing a mixture of 2% lidocaine and 0.25% Marcaine was injected across incision site. The compartments were supple at the end of the procedure. Bulky hand dressing was applied which was held in place by Sof-Rol and bias hand wrap. He had good distal circulation at the end of the procedure. The patient was recovered and sent to the PACU in stable condition. Plan will be to take the packing out in two days' time and possible discharge. Tari Vora MD SE/TYESHA /7:58 AM /8:41 AM DUNIA
[2016-07-31] MEDS: REMOVE OLD PATCH T-DERMAL SCH (08:59)
[2016-07-31] MEDS: NICOTINE 21 MG/24 HR PATCH T-DERMAL SCH (08:59)
[2016-07-31] MEDS: POLYETHYLENE GLYCOL 17 GM PKG PO SCH (09:00)
[2016-07-31] MEDS: SODIUM CHLORIDE 0.9% FLUSH 10 ML FLUSH IV FLUSH SCH ×2 (09:00→20:07)
[2016-07-31] MEDS: OXYBUTYNIN CHLORIDE 5 MG TAB PO SCH ×4 (09:00→20:07)
[2016-07-31] MEDS: DOCUSATE SODIUM 50 MG/SENNA 8.6 MG TAB PO SCH ×2 (09:00→20:07)
[2016-07-31] MEDS ORDERED: DO NOT ADM ANY ANTICOAGULANT DRUGS PRN (09:15)
[2016-07-31] MEDS ORDERED: LACTATED RINGER'S 1000 ML INJ 1,000 ML ONE (11:20)
[2016-07-31] MEDS: cefTRIAXone INJ 2,000 MG in SODIUM CHLORIDE 0.9% INJ 100 ML IV SCH (11:47)
--- NOTE | 2016-07-31 12:07 | HHI.PR ---
Subjective Remarks Patient seen postoperatively, he is status post excisional debridement, wash and closure of forearm fasciotomy wounds, left forearm. He reports feeling okay. Pain is controlled. No nausea or vomiting. Afebrile. Objective Vitals Vital Signs Date Time Temp Pulse Resp B/P Pulse Ox O2 Delivery O2 Flow Rate FiO2 07/31/16 09:00 97.3 84 20 194/122 97 07/31/16 08:40 98.2 79 16 150/75 96 Room Air 07/31/16 08:20 80 16 154/66 94 07/31/16 08:03 98.4 81 16 144/95 98 Nasal Cannula 3 07/31/16 07:00 07/31/16 06:38 98.3 79 16 146/87 98 07/31/16 04:00 97.2 72 20 126/66 97 07/31/16 00:00 97.1 89 20 161/97 98 07/30/16 20:00 97.8 93 20 159/86 98 07/30/16 16:00 97.4 81 19 147/80 96 I/O 07/30/16 07/30/16 07/30/16 07/31/16 07/31/16 07/31/16 07:00 15:00 23:00 07:00 15:00 23:00 Intake Total 618 ml 900 ml 480 ml 700 ml Output Total 0 ml Balance 618 ml 900 ml 480 ml 700 ml Intake Oral 360 ml 900 ml 480 ml IV Total 258 ml Other 700 ml Stool Total 0 ml # Voids 3 3 # Bowel Movements 0 0 Result Diagram: 07/31/16 0510 Imaging Last Impressions Upper Extremity Ultrasound 07/29/16 0000 Signed Impressions: Service Date/Time: Friday, July 29, 2016 14:36 - CONCLUSION: 1. Findings consistent with thrombophlebitis of the right mid forearm cephalic vein and dorsal hand vein which correspond to prior IV sites per patient history. No sonographic evidence for abscess at this time. Steven Franklin MD Upper Extremity CT 07/21/16 0000 Signed Impressions: Service Date/Time: Thursday, July 21, 2016 11:16 - CONCLUSION: 1. Severe subcutaneous edema along the medial aspect of the forearm and also involving the anterior and posterior aspects to some extent. There is associated skin thickening. This pattern is suggestive of a severe cellulitis. No abscess or drainable fluid collection is visualized. 2. The bones and muscles demonstrate no definite abnormality. Van Barber MD Chest X-Ray 07/20/162006 Signed Impressions: Service Date/Time: Wednesday, July 20, 2016 20:44 - CONCLUSION: No acute disease. Compa Grant MD FACR Tibia/Fibula X-Ray 07/20/161999 Signed Impressions: Service Date/Time: Wednesday, July 20, 2016 20:34 - CONCLUSION: Negative for radiopaque foreign body or osteomyelitis. Compa Grant MD FACR Radius/Ulna X-Ray 07/20/161999 Signed Impressions: Service Date/Time: Wednesday, July 20, 2016 20:40 - CONCLUSION: Negative for radiopaque foreign body. Compa Grant MD FACR Objective Remarks GENERAL: This is a well-nourished, well-developed patient, in no apparent distress. CARDIOVASCULAR: Normal rate and regular rhythm without murmurs, gallops, or rubs. RESPIRATORY: Good respiratory efforts. Breath sounds equal and clear to auscultation bilaterally. GASTROINTESTINAL: Abdomen soft, non-tender, non-distended. Normal active bowel sounds MUSCULOSKELETAL: Left upper extremity is wrapped with postsurgical dressing. Neurovascularly intact at the fingers. NEURO: Alert & Oriented x4 to person, place, time, situation. Moves all ext x4 PSYCH: Appropriate mood and affect. Procedures 07/21/16 Exploration, forearm fasciotomies both volar and extensor compartments left forearm. 07/22/16 exploration, excisional debridement skin, subcutaneous tissue, fascia and muscles and partial closure left forearm 07/24/16 exploration, excisional debridement and partial closure left forearm fasciotomy wound 07/26/16exploration, excisional debridement, partial closure of forearm fasciotomy wound left side 07/29/16excisional debridement, wash and partial closure forearm fasciotomy wounds left forearm A/P Problem List: (1) Sepsis ICD Code: A41.9 Status: Acute (2) Leukocytosis ICD Code: D72.829 Status: Acute (3) Cellulitis of left forearm ICD Code: L03.114 Status: Acute (4) Febrile illness ICD Code: R50.9 Status: Acute Assessment and Plan 51 Y/O male Sepsis Patient met criteria for admission with febrile illness, leukocytosis, tachycardia, cellulitis of the left forearm. Patient presented with fever 102. Chest x-ray was clear. Urinalysis was unremarkable. S/p IVFs. - Blood cultures negative to date and wound culture with group A beta strep Left forearm cellulitis With significant edema, decreased capillary refill, concerning for possible compartmental syndrome. X-rays were taken which did not indicate any radiopaque foreign body. CT showed: Severe subcutaneous edema along the medial aspect of the forearm and also involving the anterior and posterior aspects to some extent ; There is associated skin thickening; This pattern is suggestive of a severe cellulitis; No abscess or drainable fluid collection is visualized; The bones and muscles demonstrate no definite abnormality. Hand surgery following - Continue antibiotics per ID. On IV vancomycin and IV Rocephin - Wound culture growing group A beta strep. - Continue pain control with a bowel regimen. Percocet added. - S/P excisional debridement, wash and closure of forearm fasciotomy wounds, left forearm. Right forearm swelling, redness and tenderness secondary to superficial thrombophlebitis from IV. Warm compress, elevation and pain management. We'll monitor Anemia/ Thrombocytopenia Anemia likely s/t surgery. Thrombocytopenia appears chronic. - follow CBC and transfuse as needed. - Lovenox on hold by hand surgery History of polysubstance abuse Urine drug screen positive for benzodiazepine. - Cessation instruction. Anxiety/depression Stable- Continue home medications. Interstitial cystitis Patient indicates that he has a malfunctioning bladder stimulator. - Continue home medications. - Outpt follow-up. Right leg wound. Wound care. Watch for infection Constipation. Stooling DVT prevention: SCDs and early ambulation. Lovenox when okay with hand surgery Discharge Planning Discharge per ID and hand surgery Problem Qualifiers (1) Sepsis: Qualified Code: A40.0 - Sepsis due to group A Streptococcus (2) Leukocytosis: Qualified Code: D72.829 - Leukocytosis, unspecified type Eva Box MD Jul 31, 2016 12:06
[2016-07-31] MEDS ORDERED: PROPOFOL 200 MG/20 ML AMP IV ONE (14:30)
[2016-07-31] MEDS ORDERED: ONDANSETRON HCL 4 MG/2 ML VIAL IV PUSH ONE (14:30)
[2016-07-31] MEDS ORDERED: PHARMACY ORDERED LAB ONE (15:45)
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
[2016-07-31] MEDS: AMITRIPTYLINE HCL 25 MG TAB PO SCH (20:06)
[2016-08-01] MEDS: DIAZEPAM 10 MG TAB PO PRN ×2 (00:12→13:36)
[2016-08-01] MEDS: oxyCODONE/ACETAMINOPHEN 10 MG/325 MG TAB PO PRN ×5 (00:12→21:43)
[2016-08-01] MEDS: MORPHINE SULFATE 4 MG/ML INJ IV PRN ×5 (02:25→23:30)
[2016-08-01] MEDS: VANCOMYCIN INJ 1,250 MG in SODIUM CHLOR 0.9% 250 ML INJ 250 ML IV SCH ×2 (02:25→13:37)
[2016-08-01 04:00] VITALS: BP 116/70; PULSE 80; RESP 20; TEMP 96.7; O2SAT 95
[2016-08-01 08:00] VITALS: BP 127/78; PULSE 76; RESP 18; TEMP 97.1; O2SAT 98
[2016-08-01] MEDS: POLYETHYLENE GLYCOL 17 GM PKG PO SCH (08:09)
[2016-08-01] MEDS: OXYBUTYNIN CHLORIDE 5 MG TAB PO SCH ×4 (08:09→21:12)
[2016-08-01] MEDS: NICOTINE 21 MG/24 HR PATCH T-DERMAL SCH (08:10)
[2016-08-01] MEDS: DOCUSATE SODIUM 50 MG/SENNA 8.6 MG TAB PO SCH ×2 (08:10→21:00)
[2016-08-01] MEDS: REMOVE OLD PATCH T-DERMAL SCH (08:10)
[2016-08-01] MEDS: cefTRIAXone INJ 2,000 MG in SODIUM CHLORIDE 0.9% INJ 100 ML IV SCH (08:16)
[2016-08-01] MEDS: SODIUM CHLORIDE 0.9% FLUSH 10 ML FLUSH IV FLUSH SCH ×2 (08:17→21:13)
--- NOTE | 2016-08-01 09:45 | HHI.PR ---
Subjective Remarks Patient reports he is feeling okay. Pain is controlled. No fevers or chills. Objective Vitals Vital Signs Date Time Temp Pulse Resp B/P Pulse Ox O2 Delivery O2 Flow Rate FiO2 08/01/16 08:00 97.1 76 18 127/78 98 08/01/16 04:00 96.7 80 20 116/70 95 08/01/16 02:30 16 08/01/16 01:12 18 07/31/16 20:17 96 21 07/31/16 20:00 97.6 105 20 130/78 97 07/31/16 20:00 92 07/31/16 16:00 97.9 83 20 150/79 96 07/31/16 12:00 97.0 80 21 150/67 96 07/31/16 10:00 98 Nasal Cannula 3.00 I/O 07/31/16 07/31/16 07/31/16 08/01/16 08/01/16 08/01/16 07:00 15:00 23:00 07:00 15:00 23:00 Intake Total 700 ml 980 ml 120 ml Balance 700 ml 980 ml 120 ml Intake Oral 0 ml 980 ml 120 ml Other 700 ml # Voids 8 2 # Bowel Movements 0 Result Diagram: 07/31/16 0510 Objective Remarks GENERAL: This is a well-nourished, well-developed patient, in no apparent distress. CARDIOVASCULAR: Normal rate and regular rhythm without murmurs, gallops, or rubs. RESPIRATORY: Good respiratory efforts. Breath sounds equal and clear to auscultation bilaterally. GASTROINTESTINAL: Abdomen soft, non-tender, non-distended. Normal active bowel sounds MUSCULOSKELETAL: Left upper extremity is wrapped with postsurgical dressing. Neurovascularly intact at the fingers. Right forearm with a small area of induration from IV site. NEURO: Alert & Oriented x4 to person, place, time, situation. Moves all ext x4 PSYCH: Appropriate mood and affect. Procedures 07/21/16 Exploration, forearm fasciotomies both volar and extensor compartments left forearm. 07/22/16 exploration, excisional debridement skin, subcutaneous tissue, fascia and muscles and partial closure left forearm 07/24/16 exploration, excisional debridement and partial closure left forearm fasciotomy wound 07/26/16exploration, excisional debridement, partial closure of forearm fasciotomy wound left side 07/29/16excisional debridement, wash and partial closure forearm fasciotomy wounds left forearm A/P Problem List: (1) Sepsis ICD Code: A41.9 Status: Acute (2) Leukocytosis ICD Code: D72.829 Status: Acute (3) Cellulitis of left forearm ICD Code: L03.114 Status: Acute (4) Febrile illness ICD Code: R50.9 Status: Acute Assessment and Plan 51 Y/O male Sepsis Patient met criteria for admission with febrile illness, leukocytosis, tachycardia, cellulitis of the left forearm. Patient presented with fever 102. Chest x-ray was clear. Urinalysis was unremarkable. S/p IVFs. - Blood cultures negative to date and wound culture with group A beta strep Per ID, patient will need two weeks of IV antibiotics. Consult case management to see if arrangements can be made for outpatient antibiotics. Left forearm cellulitis With significant edema, decreased capillary refill, concerning for possible compartmental syndrome. X-rays were taken which did not indicate any radiopaque foreign body. CT showed: Severe subcutaneous edema along the medial aspect of the forearm and also involving the anterior and posterior aspects to some extent ; There is associated skin thickening; This pattern is suggestive of a severe cellulitis; No abscess or drainable fluid collection is visualized; The bones and muscles demonstrate no definite abnormality. Hand surgery following - Continue antibiotics per ID. On IV vancomycin and IV Rocephin - Wound culture growing group A beta strep. - Continue pain control with a bowel regimen. Percocet added. - S/P excisional debridement, wash and closure of forearm fasciotomy wounds, left forearm. Right forearm swelling, redness and tenderness secondary to superficial thrombophlebitis from IV. Warm compress, elevation and pain management. We'll monitor Anemia/ Thrombocytopenia Anemia likely s/t surgery. Thrombocytopenia appears chronic. - follow CBC and transfuse as needed. - Lovenox on hold by hand surgery History of polysubstance abuse Urine drug screen positive for benzodiazepine. - Cessation instruction. Anxiety/depression Stable- Continue home medications. Interstitial cystitis Patient indicates that he has a malfunctioning bladder stimulator. - Continue home medications. - Outpt follow-up. Right leg wound. Wound care. Watch for infection Constipation. Stooling DVT prevention: SCDs and early ambulation. Lovenox when okay with hand surgery Discharge Planning Discharge per ID and hand surgery Problem Qualifiers (1) Sepsis: Qualified Code: A40.0 - Sepsis due to group A Streptococcus (2) Leukocytosis: Qualified Code: D72.829 - Leukocytosis, unspecified type Eva Box MD Aug 01, 2016 09:45
[2016-08-01 12:00] VITALS: BP 132/72; PULSE 82; RESP 18; TEMP 97; O2SAT 97
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
--- NOTE | 2016-08-01 13:38 | HHI.FF ---
Infusion Therapy Location of Infusion Therapy: Ambulatory Infusion Therapy Order Patient Information Patient Weight 86.5 kg Diagnosis: Coded Allergies: Methadone (Verified Allergy, Severe, NAUSEA AND VOMITING AND RASH, 02/27/16) Celebrex (Verified Allergy, Unknown, UNKNOWN REACTION, 02/27/16) Sulfa (Verified Allergy, Unknown, UNKNOWN REACTION, 02/27/16) Voltaren (Verified Allergy, Unknown, NSAD2UX REACTION, 02/27/16) Codeine (Verified Adverse Reaction, Severe, NAUSEA AND VOMITING, 02/27/16) Penicillin (Verified Adverse Reaction, Severe, Rash and nausea, vomiting, 07/22/16) Additional Information Venous access: Other Additional Instructions [x] Peripheral flush and dressing changes per protocol [x] Implanted port and central online merchandising coordinator: * Implanted port: 10 ml Normal Saline followed by 5 ml Heparin 100 units/ml Heparin flush after each use and monthly to maintain. [] May leave port accessed during therapy. [] May leave peripheral site accessed for duration of therapy. [x] If patient has SOB or respiratory distress, check oxygen saturation. If less than 90% or clinical signs of respiratory distress, administer oxygen at 2 L/min. via nasal cannula and notify physician. [x] Anaphylaxis/Reaction orders: * Stop infusion. * Keep IV line open with saline flush. * Notify physician. * Monitor vital signs every 15 minutes until symptoms resolve. * Check Oxygen saturation; Oxygen at 2 L/min. via nasal cannula if less than 90% or clinical signs of respiratory distress. * Administer diphenhydramine (Benadryl) 25 mg IV STAT, (unless patient has received as pre-med). May repeat once, if necessary. * Solu-Cortef 250 mg IVP over 30-60 seconds, use 100 mg vials for each dissolution. * Epinephrine (1mg/1 ml) 0.3 mg subcutaneously or IVP now with any signs of respiratory distress. * Check with physician for new additional pre-med orders if patient is re- challenged or re-treated. [x] May remove PICC line when treatment complete, after confirming with Physician. [x] If the patient is admitted to the hospital, the ED, or transferred via [facility] , complete transfer form including medication reconciliation order sheet. Laboratory Tests Additional Information Follow up with Dr. Thao Quiroga in 1 week. Adam Sevilla MD Aug 01, 2016 13:38 Laboratory Tests Weekly Labs: BMP Additional Information Follow up with Dr. Thao Quiroga in 1 week. Adam Sevilla MD Aug 01, 2016 13:38
[2016-08-01 16:00] VITALS: BP 143/80; PULSE 97; RESP 18; TEMP 97.6; O2SAT 97
--- NOTE | 2016-08-01 16:36 | HHI.PR ---
Subjective Remarks complains of pain both forearm right worse than left no fever Objective Vital Signs Date Time Temp Pulse Resp B/P Pulse Ox O2 Delivery O2 Flow Rate FiO2 08/01/16 12:00 97.0 82 18 132/72 97 08/01/16 08:00 97.1 76 18 127/78 98 08/01/16 04:00 96.7 80 20 116/70 95 08/01/16 02:30 16 08/01/16 01:12 18 07/31/16 20:17 96 21 07/31/16 20:00 97.6 105 20 130/78 97 07/31/16 20:00 92 I/O 07/31/16 07/31/16 07/31/16 08/01/16 08/01/16 08/01/16 07:00 15:00 23:00 07:00 15:00 23:00 Intake Total 700 ml 980 ml 120 ml Balance 700 ml 980 ml 120 ml Intake Oral 0 ml 980 ml 120 ml Other 700 ml # Voids 8 2 # Bowel Movements 0 examination of left upper extremity: packing in place. decreased swelling. gonzales in place over the fasciotomy wounds able to make a full fist intact sensation Result Diagram: 07/31/16 0510 Assessment and Plan Assessment and Plan 51 year old male with left forearm infection s/p I and D, forearm fasciotomies, multiple debridements s/p closure of fasciotomy wounds POD 1 Plan: packing changed wound and surrounding skin was cleaned with alcohol wipes dry dressing applied antibiotics based on ID recommendation will follow tomorrow plan for discharge in 2-3 days time. Tushar Ahn MD Aug 01, 2016 16:36
[2016-08-01 20:00] VITALS: BP 127/76; PULSE 86; PULSE 89; RESP 18; TEMP 96.9; O2SAT 96
[2016-08-01 20:30] VITALS: O2SAT 97
[2016-08-01] MEDS: AMITRIPTYLINE HCL 25 MG TAB PO SCH (21:12)
[2016-08-02] VITALS (8 sets, daily range): BP systolic 113–142; BP diastolic 71–84; PULSE 78–97; RESP 16–20; TEMP 95.5–97.9; O2SAT 96–98
[2016-08-02] MEDS: oxyCODONE/ACETAMINOPHEN 10 MG/325 MG TAB PO PRN ×6 (02:08→23:56)
[2016-08-02] MEDS: VANCOMYCIN INJ 1,250 MG in SODIUM CHLOR 0.9% 250 ML INJ 250 ML IV SCH (02:08)
[2016-08-02] MEDS: MORPHINE SULFATE 4 MG/ML INJ IV PRN ×4 (03:35→21:04)
[2016-08-02] MEDS: DIAZEPAM 10 MG TAB PO PRN ×3 (07:50→23:56)
[2016-08-02] MEDS: DOCUSATE SODIUM 50 MG/SENNA 8.6 MG TAB PO SCH ×2 (09:00→20:57)
[2016-08-02] MEDS: SODIUM CHLORIDE 0.9% FLUSH 10 ML FLUSH IV FLUSH SCH ×2 (09:00→21:00)
[2016-08-02] MEDS: REMOVE OLD PATCH T-DERMAL SCH (09:00)
[2016-08-02] MEDS: POLYETHYLENE GLYCOL 17 GM PKG PO SCH (09:11)
[2016-08-02] MEDS: OXYBUTYNIN CHLORIDE 5 MG TAB PO SCH ×4 (09:11→20:57)
[2016-08-02] MEDS: NICOTINE 21 MG/24 HR PATCH T-DERMAL SCH (09:12)
[2016-08-02] MEDS: cefTRIAXone INJ 2,000 MG in SODIUM CHLORIDE 0.9% INJ 100 ML IV SCH (10:43)
[2016-08-02] MEDS ORDERED: DOCUSATE SODIUM 50 MG/SENNA 8.6 MG TAB PO ONE (12:00)
[2016-08-02] MEDS ORDERED: MAGNESIUM HYDROXIDE SUSP 30 ML CUP PO ONE (12:00)
--- NOTE | 2016-08-02 12:01 | HHI.PR ---
Subjective Remarks Patient seen this morning. Reports left forearm pain continues. Denies any chest pain or shortness of breath. Positive constipation no bowel movement since 07/29. Objective Vital Signs Date Time Temp Pulse Resp B/P Pulse Ox O2 Delivery O2 Flow Rate FiO2 08/02/16 08:00 95.8 82 20 131/71 98 08/02/16 04:00 96.5 78 18 140/84 97 08/02/16 03:40 17 08/02/16 03:08 18 08/02/16 00:00 97.0 97 16 128/77 97 08/01/16 20:30 97 21 08/01/16 20:00 89 08/01/16 20:00 96.9 86 18 127/76 96 08/01/16 16:00 97.6 97 18 143/80 97 08/01/16 12:00 97.0 82 18 132/72 97 I/O 08/01/16 08/01/16 08/01/16 08/02/16 08/02/16 08/02/16 07:00 15:00 23:00 07:00 15:00 23:00 Intake Total 1070 ml 360 ml Balance 1070 ml 360 ml Intake Oral 1070 ml 360 ml # Voids 10 6 # Bowel Movements 0 0 Result Diagram: 07/31/16 0510 Procedures //Sepsis Patient met criteria for admission with febrile illness, leukocytosis, tachycardia, cellulitis of the left forearm. Patient presented with fever 102. Chest x-ray was clear. Urinalysis was unremarkable. S/p IVFs. - Blood cultures negative to date and wound culture with group A beta strep Per ID, patient will need two weeks of IV antibiotics. Consult case management to see if arrangements can be made for outpatient antibiotics. //Left forearm cellulitis With significant edema, decreased capillary refill, concerning for possible compartmental syndrome. X-rays were taken which did not indicate any radiopaque foreign body. CT showed: Severe subcutaneous edema along the medial aspect of the forearm and also involving the anterior and posterior aspects to some extent ; There is associated skin thickening; This pattern is suggestive of a severe cellulitis; No abscess or drainable fluid collection is visualized; The bones and muscles demonstrate no definite abnormality. Hand surgery following - Continue antibiotics per ID. On IV vancomycin and IV Rocephin - Wound culture growing group A beta strep. - Continue pain control with a bowel regimen. Percocet added. - S/P excisional debridement, wash and closure of forearm fasciotomy wounds, left forearm. //Right forearm swelling, redness and tenderness secondary to superficial thrombophlebitis from IV. Warm compress, elevation and pain management. We'll monitor. Appreciate surgical assistance. //Anemia/ Thrombocytopenia Anemia likely s/t surgery. Thrombocytopenia appears chronic. - follow CBC and transfuse as needed. -And coagulation As per hand surgery. Appreciate his ambulatory. //History of polysubstance abuse Urine drug screen positive for benzodiazepine. - Cessation instruction. //Anxiety/depression Stable- Continue home medications. //Interstitial cystitis Patient indicates that he has a malfunctioning bladder stimulator. - Continue home medications. - Outpt follow-up. //Right leg wound. Wound care. Watch for infection //Constipation. Stooling //DVT prevention: SCDs and early ambulation. Lovenox when okay with hand surgery Objective Remarks GENERAL: Left arm with dressing intact. Peripheral perfusion intact. SKIN: Warm and dry. HEAD: Normocephalic. EYES: No scleral icterus. No injection or drainage. NECK: Supple, trachea midline. No JVD. CARDIOVASCULAR: Regular rate and rhythm without murmurs, gallops, or rubs. RESPIRATORY: Breath sounds equal bilaterally. No accessory muscle use. GASTROINTESTINAL: Abdomen soft, non-tender, nondistended. MUSCULOSKELETAL: No cyanosis, or edema. BACK: Nontender without obvious deformity. No CVA tenderness. A/P Assessment and Plan =====08/02/16 -And surgery expect discharge in 2-3 days. Ceftriaxone IV projected stop date . Patient will need IV Rocephin 2 weeks, as well as follow up with ID 1 week after discharge. //Constipation. Laxatives ordered //Sepsis Patient met criteria for admission with febrile illness, leukocytosis, tachycardia, cellulitis of the left forearm. Patient presented with fever 102. Chest x-ray was clear. Urinalysis was unremarkable. S/p IVFs. - Blood cultures negative to date and wound culture with group A beta strep Per ID, patient will need two weeks of IV antibiotics. Consult case management to see if arrangements can be made for outpatient antibiotics. //Left forearm cellulitis With significant edema, decreased capillary refill, concerning for possible compartmental syndrome. X-rays were taken which did not indicate any radiopaque foreign body. CT showed: Severe subcutaneous edema along the medial aspect of the forearm and also involving the anterior and posterior aspects to some extent ; There is associated skin thickening; This pattern is suggestive of a severe cellulitis; No abscess or drainable fluid collection is visualized; The bones and muscles demonstrate no definite abnormality. Hand surgery following - Continue antibiotics per ID. On IV vancomycin and IV Rocephin - Wound culture growing group A beta strep. - Continue pain control with a bowel regimen. Percocet added. - S/P excisional debridement, wash and closure of forearm fasciotomy wounds, left forearm. //Right forearm swelling, redness and tenderness secondary to superficial thrombophlebitis from IV. Warm compress, elevation and pain management. We'll monitor. Appreciate surgical assistance. //Anemia/ Thrombocytopenia Anemia likely s/t surgery. Thrombocytopenia appears chronic. - follow CBC and transfuse as needed. -And coagulation As per hand surgery. Appreciate his ambulatory. //History of polysubstance abuse Urine drug screen positive for benzodiazepine. - Cessation instruction. //Anxiety/depression Stable- Continue home medications. //Interstitial cystitis Patient indicates that he has a malfunctioning bladder stimulator. - Continue home medications. - Outpt follow-up. //Right leg wound. Wound care. Watch for infection //Constipation. Stooling //DVT prevention: SCDs and early ambulation. Lovenox when okay with hand surgery Discharge Planning Expect discharge home with IV antibiotics in 2-3 days. Ceftriaxone with stopped date tentative 08/15 -We'll need follow-up with infectious disease in one week. Connor Snider MD Aug 02, 2016 12:01
[2016-08-02] MEDS ORDERED: PHARMACY ORDERED LAB ONE (13:45)
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
--- NOTE | 2016-08-02 14:54 | HHI.PR ---
Subjective Remarks complains of pain both forearm right worse than left no fever difficulty with IV access Objective Vital Signs Date Time Temp Pulse Resp B/P Pulse Ox O2 Delivery O2 Flow Rate FiO2 08/02/16 12:00 95.5 91 18 142/71 98 08/02/16 08:00 95.8 82 20 131/71 98 08/02/16 04:00 96.5 78 18 140/84 97 08/02/16 03:40 17 08/02/16 03:08 18 08/02/16 00:00 97.0 97 16 128/77 97 08/01/16 20:30 97 21 08/01/16 20:00 89 08/01/16 20:00 96.9 86 18 127/76 96 08/01/16 16:00 97.6 97 18 143/80 97 I/O 08/01/16 08/01/16 08/01/16 08/02/16 08/02/16 08/02/16 07:00 15:00 23:00 07:00 15:00 23:00 Intake Total 1070 ml 360 ml 690 ml Balance 1070 ml 360 ml 690 ml Intake Oral 1070 ml 360 ml 690 ml # Voids 10 6 2 # Bowel Movements 0 0 0 examination of left upper extremity: stapled wounds appear clean and dry packing removed from the posterior aspect no drainage minimal surrounding swelling and erythema able to make a full fist intact distal circulation Result Diagram: 08/02/16 1408 Procedures //Sepsis Patient met criteria for admission with febrile illness, leukocytosis, tachycardia, cellulitis of the left forearm. Patient presented with fever 102. Chest x-ray was clear. Urinalysis was unremarkable. S/p IVFs. - Blood cultures negative to date and wound culture with group A beta strep Per ID, patient will need two weeks of IV antibiotics. Consult case management to see if arrangements can be made for outpatient antibiotics. //Left forearm cellulitis With significant edema, decreased capillary refill, concerning for possible compartmental syndrome. X-rays were taken which did not indicate any radiopaque foreign body. CT showed: Severe subcutaneous edema along the medial aspect of the forearm and also involving the anterior and posterior aspects to some extent ; There is associated skin thickening; This pattern is suggestive of a severe cellulitis; No abscess or drainable fluid collection is visualized; The bones and muscles demonstrate no definite abnormality. Hand surgery following - Continue antibiotics per ID. On IV vancomycin and IV Rocephin - Wound culture growing group A beta strep. - Continue pain control with a bowel regimen. Percocet added. - S/P excisional debridement, wash and closure of forearm fasciotomy wounds, left forearm. //Right forearm swelling, redness and tenderness secondary to superficial thrombophlebitis from IV. Warm compress, elevation and pain management. We'll monitor. Appreciate surgical assistance. //Anemia/ Thrombocytopenia Anemia likely s/t surgery. Thrombocytopenia appears chronic. - follow CBC and transfuse as needed. -And coagulation As per hand surgery. Appreciate his ambulatory. //History of polysubstance abuse Urine drug screen positive for benzodiazepine. - Cessation instruction. //Anxiety/depression Stable- Continue home medications. //Interstitial cystitis Patient indicates that he has a malfunctioning bladder stimulator. - Continue home medications. - Outpt follow-up. //Right leg wound. Wound care. Watch for infection //Constipation. Stooling //DVT prevention: SCDs and early ambulation. Lovenox when okay with hand surgery Assessment and Plan Assessment and Plan 51 year old male with left forearm infection s/p I and D, forearm fasciotomies, multiple debridements s/p closure of fasciotomy wounds POD 2 Plan: packing removed wound and surrounding skin was cleaned with alcohol wipes dry dressing applied antibiotics based on ID recommendation plan for discharge in 2-3 days time from hand surgery stand point Tushar Ahn MD Aug 02, 2016 14:54
--- NOTE | 2016-08-02 19:06 | PD.RAD ---
Post Procedure Progress Note Pre Procedure Diagnosis: (1) Cellulitis of left forearm (2) Sepsis Post Procedure Diagnosis: (1) Cellulitis of left forearm (2) Sepsis Procedure Date: Aug 02, 2016 Supervising Radiologist: Loy Russell JR Proceduralist/Assist: Silvia Long, RT(R), Elva Wagner RT(R)() Anesthesia: Local Plan of Activity Patient to Unit: Nursing Unit Patient Condition: Good See PACS Report for procedural detail/treatment Central Venous Access Device Procedure 1 Right Internal Jugular Central Line Placement triple lumen Chinese: 7 Findings: Placed RIJ CVL. Tip in mid right atrium. Functions well. OK to use Jr. Russell Thomas Justin MD Aug 02, 2016 19:05
[2016-08-02] MEDS ORDERED: SODIUM CHLORIDE 0.9% FLUSH 10 ML FLUSH IVF PRN (19:15)
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
[2016-08-02] MEDS: AMITRIPTYLINE HCL 25 MG TAB PO SCH (20:57)
[2016-08-03] VITALS (9 sets, daily range): BP systolic 127–171; BP diastolic 71–98; PULSE 87–104; RESP 14–16; TEMP 96.6–97.7; O2SAT 95–97
[2016-08-03] MEDS: MORPHINE SULFATE 4 MG/ML INJ IV PRN ×4 (02:04→16:28)
[2016-08-03] MEDS: SODIUM CHLORIDE 0.9% FLUSH 10 ML FLUSH IV FLUSH PRN ×2 (02:04→16:33)
[2016-08-03] MEDS: oxyCODONE/ACETAMINOPHEN 10 MG/325 MG TAB PO PRN ×5 (03:53→22:56)
[2016-08-03] MEDS: REMOVE OLD PATCH T-DERMAL SCH (09:00)
[2016-08-03] MEDS: OXYBUTYNIN CHLORIDE 5 MG TAB PO SCH ×4 (09:49→20:55)
[2016-08-03] MEDS: NICOTINE 21 MG/24 HR PATCH T-DERMAL SCH (09:53)
[2016-08-03] MEDS: POLYETHYLENE GLYCOL 17 GM PKG PO SCH (09:54)
[2016-08-03] MEDS: cefTRIAXone INJ 2,000 MG in SODIUM CHLORIDE 0.9% INJ 100 ML IV SCH (09:55)
[2016-08-03] MEDS: DIAZEPAM 10 MG TAB PO PRN ×2 (09:59→20:54)
[2016-08-03] MEDS: SODIUM CHLORIDE 0.9% FLUSH 10 ML FLUSH IV FLUSH SCH ×2 (10:05→20:55)
[2016-08-03] MEDS: SODIUM CHLORIDE 0.9% FLUSH 10 ML FLUSH IVF SCH (10:05)
[2016-08-03] MEDS: DOCUSATE SODIUM 50 MG/SENNA 8.6 MG TAB PO SCH ×2 (10:12→20:55)
--- NOTE | 2016-08-03 18:41 | HHI.PR ---
Subjective Remarks Patient seen this morning. Sleeping, wakes up for exam. left forearm pain continues. Denies any chest pain or shortness of breath . Still no bowel movement. Has abdominal pain Objective Vital Signs Date Time Temp Pulse Resp B/P Pulse Ox O2 Delivery O2 Flow Rate FiO2 08/03/16 16:40 96.7 87 15 142/80 97 08/03/16 12:33 97.1 96 15 171/87 97 08/03/16 09:12 96.6 88 16 127/71 95 08/03/16 08:12 95 21 08/03/16 04:09 97.1 90 16 136/86 96 08/03/16 00:28 97.7 104 16 157/98 96 08/02/16 20:56 97.9 91 16 132/83 97 08/02/16 20:35 89 08/02/16 20:00 96 21 I/O 08/02/16 08/02/16 08/02/16 08/03/16 08/03/16 08/03/16 07:00 15:00 23:00 07:00 15:00 23:00 Intake Total 360 ml 690 ml 100 ml Balance 360 ml 690 ml 100 ml Intake Oral 360 ml 690 ml IV Total 100 ml # Voids 6 2 1 2 # Bowel Movements 0 0 Result Diagram: 08/02/16 1408 Procedures 07/21/16 Exploration, forearm fasciotomies both volar and extensor compartments left forearm. 07/22/16 exploration, excisional debridement skin, subcutaneous tissue, fascia and muscles and partial closure left forearm 07/24/16 exploration, excisional debridement and partial closure left forearm fasciotomy wound 07/26/16exploration, excisional debridement, partial closure of forearm fasciotomy wound left side 07/29/16excisional debridement, wash and partial closure forearm fasciotomy wounds left forearm Objective Remarks GENERAL: Left arm with dressing intact. Peripheral perfusion intact. Sleeping , wakes up for exam. Appears comfortable. SKIN: Warm and dry. HEAD: Normocephalic. EYES: No scleral icterus. No injection or drainage. NECK: Supple, trachea midline. No JVD. CARDIOVASCULAR: Regular rate and rhythm without murmurs, gallops, or rubs. RESPIRATORY: Breath sounds equal bilaterally. No accessory muscle use. GASTROINTESTINAL: Abdomen soft, non-tender, nondistended. MUSCULOSKELETAL: No cyanosis, or edema. BACK: Nontender without obvious deformity. No CVA tenderness. A/P Assessment and Plan =====08/03/16 -laxitives ordered again for constipation. -Decrease IV pain meds secondary to somnolence DC PLAN: -Pending and surgery clearance, possible discharge on Friday. -Picc Line has been placed. Ceftriaxone IV projected stop date 08/15. follow up with ID 1 week after discharge. //Sepsis Patient met criteria for admission with febrile illness, leukocytosis, tachycardia, cellulitis of the left forearm. Patient presented with fever 102. Chest x-ray was clear. Urinalysis was unremarkable. S/p IVFs. - Blood cultures negative to date and wound culture with group A beta strep Per ID, patient will need two weeks of IV antibiotics. Consult case management to see if arrangements can be made for outpatient antibiotics. //Left forearm cellulitis With significant edema, decreased capillary refill, concerning for possible compartmental syndrome. X-rays were taken which did not indicate any radiopaque foreign body. CT showed: Severe subcutaneous edema along the medial aspect of the forearm and also involving the anterior and posterior aspects to some extent ; There is associated skin thickening; This pattern is suggestive of a severe cellulitis; No abscess or drainable fluid collection is visualized; The bones and muscles demonstrate no definite abnormality. Hand surgery following - Continue antibiotics per ID. On IV vancomycin and IV Rocephin - Wound culture growing group A beta strep. - Continue pain control with a bowel regimen. Percocet added. - S/P excisional debridement, wash and closure of forearm fasciotomy wounds, left forearm. //Right forearm swelling, redness and tenderness secondary to superficial thrombophlebitis from IV. Warm compress, elevation and pain management. We'll monitor. Appreciate surgical assistance. //Anemia/ Thrombocytopenia Anemia likely s/t surgery. Thrombocytopenia appears chronic. - follow CBC and transfuse as needed. -And coagulation As per hand surgery. Appreciate his ambulatory. //History of polysubstance abuse Urine drug screen positive for benzodiazepine. - Cessation instruction. //Anxiety/depression Stable- Continue home medications. //Interstitial cystitis Patient indicates that he has a malfunctioning bladder stimulator. - Continue home medications. - Outpt follow-up. //Right leg wound. Wound care. Watch for infection //Constipation. Stooling //DVT prevention: SCDs and early ambulation. Patient is ambulatory. Lovenox when okay with hand surgery Discharge Planning DC PLAN: -Pending and surgery clearance, possible discharge on Friday. -Picc Line has been placed. Ceftriaxone IV projected stop date 08/15. follow up with ID 1 week after discharge. Connor Snider MD Aug 03, 2016 18:41
[2016-08-03] MEDS ORDERED: BISACODYL 10 MG SUPP RECTAL ONE (18:45)
[2016-08-03] MEDS ORDERED: MAGNESIUM HYDROXIDE SUSP 30 ML CUP PO ONE (18:45)
[2016-08-03] MEDS ORDERED: DOCUSATE SODIUM 50 MG/SENNA 8.6 MG TAB PO ONE (18:45)
[2016-08-03] MEDS: AMITRIPTYLINE HCL 25 MG TAB PO SCH (20:55)
[2016-08-03] MEDS: MORPHINE SULFATE 4 MG/ML INJ IV PUSH PRN (20:56)
[2016-08-04] VITALS (8 sets, daily range): BP systolic 104–131; BP diastolic 63–88; PULSE 73–90; RESP 12–19; TEMP 95.9–97.7; O2SAT 94–97
[2016-08-04] MEDS: MORPHINE SULFATE 4 MG/ML INJ IV PUSH PRN ×3 (00:20→11:33)
[2016-08-04] MEDS: oxyCODONE/ACETAMINOPHEN 10 MG/325 MG TAB PO PRN ×4 (03:06→19:29)
[2016-08-04] MEDS: DOCUSATE SODIUM 50 MG/SENNA 8.6 MG TAB PO SCH ×2 (08:53→20:35)
[2016-08-04] MEDS: DIAZEPAM 10 MG TAB PO PRN ×2 (08:53→20:35)
[2016-08-04] MEDS: OXYBUTYNIN CHLORIDE 5 MG TAB PO SCH ×4 (08:55→20:35)
[2016-08-04] MEDS: REMOVE OLD PATCH T-DERMAL SCH (08:56)
[2016-08-04] MEDS: NICOTINE 21 MG/24 HR PATCH T-DERMAL SCH (08:56)
[2016-08-04] MEDS: POLYETHYLENE GLYCOL 17 GM PKG PO SCH (08:59)
[2016-08-04] MEDS: SODIUM CHLORIDE 0.9% FLUSH 10 ML FLUSH IVF SCH (09:04)
[2016-08-04] MEDS: SODIUM CHLORIDE 0.9% FLUSH 10 ML FLUSH IV FLUSH SCH ×2 (09:04→20:36)
[2016-08-04] MEDS: cefTRIAXone INJ 2,000 MG in SODIUM CHLORIDE 0.9% INJ 100 ML IV SCH (11:24)
--- NOTE | 2016-08-04 12:12 | HHI.PR ---
Subjective Remarks complains of pain both forearms, getting better no fever on IV antibiotics Objective Vital Signs Date Time Temp Pulse Resp B/P Pulse Ox O2 Delivery O2 Flow Rate FiO2 08/04/16 08:00 94 21 08/04/16 07:55 96.1 84 18 131/81 94 08/04/16 04:34 97.7 90 12 119/88 96 08/04/16 00:18 97.0 88 14 121/74 97 08/03/16 20:11 96 08/03/16 20:09 97.7 89 14 156/79 95 08/03/16 20:05 95 21 08/03/16 16:40 96.7 87 15 142/80 97 08/03/16 12:33 97.1 96 15 171/87 97 I/O 08/03/16 08/03/16 08/03/16 08/04/16 08/04/16 08/04/16 07:00 15:00 23:00 07:00 15:00 23:00 Intake Total 100 ml Balance 100 ml IV Total 100 ml # Voids 2 1 1 Left forearm: forearm fasciotomy wounds with gonzales clean and dry packing wound over the posterior aspect 2 cms is still open no drainage able to make a full fist intact sensation Result Diagram: 08/04/16 0640 Procedures 07/21/16 Exploration, forearm fasciotomies both volar and extensor compartments left forearm. 07/22/16 exploration, excisional debridement skin, subcutaneous tissue, fascia and muscles and partial closure left forearm 07/24/16 exploration, excisional debridement and partial closure left forearm fasciotomy wound 07/26/16exploration, excisional debridement, partial closure of forearm fasciotomy wound left side 07/29/16excisional debridement, wash and partial closure forearm fasciotomy wounds left forearm Assessment and Plan Assessment and Plan 51 year old male with left forearm infection s/p I and D, forearm fasciotomies, multiple debridements s/p closure of fasciotomy wounds POD 4 Plan: wound and surrounding skin was cleaned with alcohol wipes bordered gauze dressing applied antibiotics based on ID recommendation cleared for discharge from hand surgery tomorrow follow up in office next week wound care: clean the surrounding skin with alcohol wipes and dry dressing, keep the part clean and dry, suture removal in 2 weeks time. Tushar Ahn MD Aug 04, 2016 12:12
--- NOTE | 2016-08-04 18:11 | HHI.PR ---
Subjective Remarks Patient seen this morning around 10 AM. Says he is feeling all right. Pain is under control. Denies any chest pain or shortness of breath. Patient reports positive bowel movement, however none recorded.. Objective Vital Signs Date Time Temp Pulse Resp B/P Pulse Ox O2 Delivery O2 Flow Rate FiO2 08/04/16 16:00 95.9 73 19 104/63 96 08/04/16 12:00 96.6 87 18 130/70 96 08/04/16 08:00 94 21 08/04/16 07:55 96.1 84 18 131/81 94 08/04/16 04:34 97.7 90 12 119/88 96 08/04/16 00:18 97.0 88 14 121/74 97 08/03/16 20:11 96 08/03/16 20:09 97.7 89 14 156/79 95 08/03/16 20:05 95 21 I/O 08/03/16 08/03/16 08/03/16 08/04/16 08/04/16 08/04/16 07:00 15:00 23:00 07:00 15:00 23:00 Intake Total 100 ml 630 ml Balance 100 ml 630 ml Intake Oral 630 ml IV Total 100 ml # Voids 2 1 1 Result Diagram: 08/04/16 0640 Procedures 07/21/16 Exploration, forearm fasciotomies both volar and extensor compartments left forearm. 07/22/16 exploration, excisional debridement skin, subcutaneous tissue, fascia and muscles and partial closure left forearm 07/24/16 exploration, excisional debridement and partial closure left forearm fasciotomy wound 07/26/16exploration, excisional debridement, partial closure of forearm fasciotomy wound left side 07/29/16excisional debridement, wash and partial closure forearm fasciotomy wounds left forearm Objective Remarks GENERAL: Left arm with dressing intact. Peripheral perfusion intact. Sleeping , wakes up for exam. Appears comfortable.dressings have been redone by hand surgery, otherwise no appreciable change on exam SKIN: Warm and dry. HEAD: Normocephalic. EYES: No scleral icterus. No injection or drainage. NECK: Supple, trachea midline. No JVD. CARDIOVASCULAR: Regular rate and rhythm without murmurs, gallops, or rubs. RESPIRATORY: Breath sounds equal bilaterally. No accessory muscle use. GASTROINTESTINAL: Abdomen soft, non-tender, nondistended. MUSCULOSKELETAL: No cyanosis, or edema. BACK: Nontender without obvious deformity. No CVA tenderness. A/P Assessment and Plan =====08/04/16 -Constipation resolved. -Discontinue IV meds Discussed with and surgery. Will be cleared tomorrow for discharge. DC PLAN: -Pending and surgery clearance, likely discharge tomorrow.. -Right tunneled IJ has been placed.. Ceftriaxone IV projected stop date 08/15. follow up with ID 1 week after discharge. //Sepsis Patient met criteria for admission with febrile illness, leukocytosis, tachycardia, cellulitis of the left forearm. Patient presented with fever 102. Chest x-ray was clear. Urinalysis was unremarkable. S/p IVFs. - Blood cultures negative to date and wound culture with group A beta strep Per ID, patient will need two weeks of IV antibiotics. Consult case management to see if arrangements can be made for outpatient antibiotics. //Left forearm cellulitis With significant edema, decreased capillary refill, concerning for possible compartmental syndrome. X-rays were taken which did not indicate any radiopaque foreign body. CT showed: Severe subcutaneous edema along the medial aspect of the forearm and also involving the anterior and posterior aspects to some extent ; There is associated skin thickening; This pattern is suggestive of a severe cellulitis; No abscess or drainable fluid collection is visualized; The bones and muscles demonstrate no definite abnormality. Hand surgery following - Continue antibiotics per ID. On IV vancomycin and IV Rocephin - Wound culture growing group A beta strep. - Continue pain control with a bowel regimen. Percocet added. - S/P excisional debridement, wash and closure of forearm fasciotomy wounds, left forearm. //Right forearm swelling, redness and tenderness secondary to superficial thrombophlebitis from IV. Warm compress, elevation and pain management. We'll monitor. Appreciate surgical assistance. //Anemia/ Thrombocytopenia Anemia likely s/t surgery. Thrombocytopenia appears chronic. - follow CBC and transfuse as needed. -And coagulation As per hand surgery. Appreciate his ambulatory. //History of polysubstance abuse Urine drug screen positive for benzodiazepine. - Cessation instruction. //Anxiety/depression Stable- Continue home medications. //Interstitial cystitis Patient indicates that he has a malfunctioning bladder stimulator. - Continue home medications. - Outpt follow-up. //Right leg wound. Wound care. Watch for infection //Constipation. Stooling //DVT prevention: SCDs and early ambulation. Patient is ambulatory. Lovenox when okay with hand surgery Discharge Planning DC PLAN: -Pending and surgery clearance, possible discharge tomorrow. -Right tunneled IJ has been placed Ceftriaxone IV projected stop date 08/15. follow up with ID 1 week after discharge. Connor Snider MD Aug 04, 2016 18:11
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
[2016-08-04] MEDS: AMITRIPTYLINE HCL 25 MG TAB PO SCH (20:35)
[2016-08-05] MEDS: oxyCODONE/ACETAMINOPHEN 10 MG/325 MG TAB PO PRN ×3 (00:01→14:47)
[2016-08-05 00:53] VITALS: BP 121/74; PULSE 84; RESP 20; TEMP 97.9; O2SAT 93
[2016-08-05 04:22] VITALS: BP 92/52; PULSE 73; RESP 20; TEMP 97.6; O2SAT 95
[2016-08-05 08:00] VITALS: BP 105/68; PULSE 74; PULSE 77; RESP 16; TEMP 96.3; O2SAT 94
[2016-08-05] MEDS: SODIUM CHLORIDE 0.9% FLUSH 10 ML FLUSH IVF SCH (08:17)
[2016-08-05] MEDS: SODIUM CHLORIDE 0.9% FLUSH 10 ML FLUSH IV FLUSH SCH (08:17)
[2016-08-05] MEDS: OXYBUTYNIN CHLORIDE 5 MG TAB PO SCH ×2 (08:18→12:57)
[2016-08-05] MEDS: DOCUSATE SODIUM 50 MG/SENNA 8.6 MG TAB PO SCH (08:18)
[2016-08-05] MEDS: POLYETHYLENE GLYCOL 17 GM PKG PO SCH (08:18)
[2016-08-05] MEDS: NICOTINE 21 MG/24 HR PATCH T-DERMAL SCH (08:19)
[2016-08-05] MEDS: REMOVE OLD PATCH T-DERMAL SCH (08:19)
[2016-08-05] MEDS ORDERED: OXYC1TAB36 PO (09:03)
[2016-08-05] MEDS ORDERED: SENN1TAB PO (09:03)
[2016-08-05] MEDS ORDERED: CEPH-460 PO (09:03)
--- NOTE | 2016-08-05 10:25 | HHI.FF ---
Face to Face Verification Diagnosis: (1) Compartment syndrome of left upper extremity (2) Cellulitis of left forearm Home Health Nursing Instructions: WOund care of left forearm as per hand surgery reccs. clean the surrounding skin with alcohol wipes and dry dressing, keep the part clean and dry, suture removal in 2 weeks time. I have seen patient Alberto WebberJr jodie on 08/05/16. My clinical findings support the need for the requested home health care services because: Limited ability to care for self I certify that my clinical findings support that this patient is homebound because: Post-op weakness Connor Snider MD Aug 05, 2016 10:25
[2016-08-05] MEDS: cefTRIAXone INJ 2,000 MG in SODIUM CHLORIDE 0.9% INJ 100 ML IV SCH (11:00)
--- NOTE | 2016-08-05 11:52 | HHI.PR ---
Subjective Remarks Patient seen this morning around 9 AM. Says he feels well. Denies any chest pain or shortness of breath. Reports pain is under control. Objective Vital Signs Date Time Temp Pulse Resp B/P Pulse Ox O2 Delivery O2 Flow Rate FiO2 08/05/16 08:00 96.3 77 16 105/68 94 08/05/16 04:22 97.6 73 20 92/52 95 08/05/16 00:53 97.9 84 20 121/74 93 08/04/16 20:00 90 08/04/16 20:00 97.6 89 16 113/69 96 08/04/16 19:45 94 21 08/04/16 16:00 95.9 73 19 104/63 96 08/04/16 12:00 96.6 87 18 130/70 96 I/O 08/04/16 08/04/16 08/04/16 08/05/16 08/05/16 08/05/16 07:00 15:00 23:00 07:00 15:00 23:00 Intake Total 630 ml Balance 630 ml Intake Oral 630 ml # Voids 1 1 Result Diagram: 08/04/16 0640 Procedures 07/21/16 Exploration, forearm fasciotomies both volar and extensor compartments left forearm. 07/22/16 exploration, excisional debridement skin, subcutaneous tissue, fascia and muscles and partial closure left forearm 07/24/16 exploration, excisional debridement and partial closure left forearm fasciotomy wound 07/26/16exploration, excisional debridement, partial closure of forearm fasciotomy wound left side 07/29/16excisional debridement, wash and partial closure forearm fasciotomy wounds left forearm Objective Remarks GENERAL: Left arm with dressing intact as before. Peripheral perfusion intact. Sleeping, wakes up for exam. Appears comfortable. dressings have been redone by hand surgery. again no appreciable change on exam SKIN: Warm and dry. HEAD: Normocephalic. EYES: No scleral icterus. No injection or drainage. NECK: Supple, trachea midline. No JVD. CARDIOVASCULAR: Regular rate and rhythm without murmurs, gallops, or rubs. RESPIRATORY: Breath sounds equal bilaterally. No accessory muscle use. GASTROINTESTINAL: Abdomen soft, non-tender, nondistended. MUSCULOSKELETAL: No cyanosis, or edema. BACK: Nontender without obvious deformity. No CVA tenderness. A/P Assessment and Plan =====08/05/16 -Infectious disease recommends discharge home on Keflex to complete course. We' ll need to follow-up with infectious disease in one week. -Discussed with case management. Have ordered home health for wound care assistance. DC PLAN: -Discharge home with home health for wound care. -Keflex to complete treatment course as per ID. -Remove tunneled IJ, as patient will not need IV antibiotics. -Right tunneled IJ has been placed.. Ceftriaxone IV projected stop date 08/15. -Follow up with hand surgery in 1 week. follow up with ID 1 week after discharge. //Sepsis Patient met criteria for admission with febrile illness, leukocytosis, tachycardia, cellulitis of the left forearm. Patient presented with fever 102. Chest x-ray was clear. Urinalysis was unremarkable. S/p IVFs. - Blood cultures negative to date and wound culture with group A beta strep Per ID, patient will need two weeks of IV antibiotics. Consult case management to see if arrangements can be made for outpatient antibiotics. //Left forearm cellulitis With significant edema, decreased capillary refill, concerning for possible compartmental syndrome. X-rays were taken which did not indicate any radiopaque foreign body. CT showed: Severe subcutaneous edema along the medial aspect of the forearm and also involving the anterior and posterior aspects to some extent ; There is associated skin thickening; This pattern is suggestive of a severe cellulitis; No abscess or drainable fluid collection is visualized; The bones and muscles demonstrate no definite abnormality. Hand surgery following - Continue antibiotics per ID. On IV vancomycin and IV Rocephin - Wound culture growing group A beta strep. - Continue pain control with a bowel regimen. Percocet added. - S/P excisional debridement, wash and closure of forearm fasciotomy wounds, left forearm. //Right forearm swelling, redness and tenderness secondary to superficial thrombophlebitis from IV. Warm compress, elevation and pain management. We'll monitor. Appreciate surgical assistance. //Anemia/ Thrombocytopenia Anemia likely s/t surgery. Thrombocytopenia appears chronic. - follow CBC and transfuse as needed. -And coagulation As per hand surgery. Appreciate his ambulatory. //History of polysubstance abuse Urine drug screen positive for benzodiazepine. - Cessation instruction. //Anxiety/depression Stable- Continue home medications. //Interstitial cystitis Patient indicates that he has a malfunctioning bladder stimulator. - Continue home medications. - Outpt follow-up. //Right leg wound. Wound care. Watch for infection //Constipation. Stooling //DVT prevention: SCDs and early ambulation. Patient is ambulatory. Discharge Planning DC PLAN: -Discharge home with home health for wound care. -Keflex to complete treatment course as per ID. -Remove tunneled IJ, as patient will not need IV antibiotics. -Follow up with hand surgery in 1 week. follow up with ID 1 week after discharge. Connor Snider MD Aug 05, 2016 11:51
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
[2016-08-05 12:00] VITALS: BP 116/84; PULSE 84; RESP 16; TEMP 97.1; O2SAT 97
[2016-08-05] MEDS ORDERED: SODIUM CHLORID 0.9% 500 ML INJ 500 ML IV ONE (14:30)
[2016-08-05 15:09] LABS: BASOPHIL % 0.3 % (0.0-2.0); EOSINOPHIL # 0.1 TH/MM3 (0-0.4); EOSINOPHIL % 0.5 % (0.0-4.0); HEMATOCRIT 34.7 % (39.0-51.0); HEMO FLAGS DIFF FINAL; LYMPH % 11.5 % (9.0-44.0); LYMPHOCYTE # 1.2 TH/MM3 (1.0-4.8); MEAN CELL VOLUME 88.2 FL (80.0-100.0); MEAN CORPUSCULAR HEMOGLOBIN 30.1 PG (27.0-34.0); MEAN CORPUSCULAR HGB CONC 34.2 % (32.0-36.0); MONO % 2.9 % (0.0-8.0); NEUT % 84.8 % (16.0-70.0); PLATELET COUNT 272 TH/MM3 (150-450); RED BLOOD COUNT 3.94 MIL/MM3 (4.50-5.90); RED CELL DISTRIBUTION WIDTH 12.9 % (11.6-17.2); WHITE BLOOD COUNT 10.6 TH/MM3 (4.0-11.0)
[2016-08-05 15:24] LABS: BICARBONATE 25.9 MEQ/L (21.0-32.0)
[2016-08-05] MEDS ORDERED: IOHEXOL 350 MG/ML 10 ML VIAL (for RAD DIAG) IV ONE (16:26)
--- NOTE | 2016-08-05 16:46 | RADHPO ---
EXAM DATE/TIME: 08/05/2016 16:05 [place] COMPARISON: CT PULMONARY ANGIOGRAM, February 28, 2016, 0:45. INDICATIONS : Tachycardia. Chest pressure. Evaluate for thrombosis. IV CONTRAST: 70 cc Omnipaque 350 (iohexol) IV RADIATION DOSE: 13.17 CTDIvol (mGy) MEDICAL HISTORY : Hypertension. Gastroesophageal reflux disease. SURGICAL HISTORY : Implanted bladder stimulator ENCOUNTER: Initial ACUITY: 1 day PAIN SCALE: 3/10 LOCATION: chest TECHNIQUE: Volumetric scanning of the chest was performed using a pulmonary embolism protocol MIP images were re constructed. Using automated exposure control and adjustment of the mA and/or kV according to patien t size, radiation dose was kept as low as reasonably achievable to obtain optimal diagnostic quality images. FINDINGS: PULMONARY ARTERIES: No filling defects are seen in the pulmonary arteries through the segmental level. LUNGS: Scattered patchiness is noted within the lower lobes bilaterally consistent with atelectasis and/or i nfiltrates. Clinical correlation is recommended. PLEURAE: There is no pleural thickening or pleural effusion. MEDIASTINUM: There is good visualization of the great vessels of the middle mediastinum. No evidence of mediastin al or hilar adenopathy/mass. MUSCULOSKELETAL: Within normal limits for patient age. MISCELLANEOUS: The visualized upper abdominal organs demonstrate no acute abnormality. CONCLUSION: 1. Scattered patchiness is noted within the lower lobes bilaterally consistent with atelectasis and/o r infiltrates. Clinical correlation is recommended. 2. No evidence of pulmonary embolism. Ludwin Pfeiffer MD on August 05, 2016 at 16:41 Board Certified Radiologist. This report was verified electronically.
--- NOTE | 2016-09-04 07:15 | PQ ---
Physician Query Response Document PATIENT: CHARLES KEARNEY : 1965 ADMIT DATE: 07/20/2016 9:48 PM DISCH DATE: 08/05/2016 5:43 PM RESPONDING PROVIDER #: chris QUERY TEXT: Debridement Type Based on your medical judgment, can you further clarify the precise nature, depth, extent, and/or met hods of wound debridement utilized in this case, such as: --EXCISIONAL debridement is documented in op report. Please specify tissue you excisionally debrided. To deepest tissue debrided. --Skin --Subcutaneous tissue/Fascia --Muscle --Other Specify If you have additional questions/comments and/or concerns please call [employer]/Coding Hotline [email or web address] [phone] The patient's Clinical Indicators include: Dr VORA, you performed an Excisional debridemnt on 07-31-16 on this patient. Excisional debridement is documented but,"devitalized tisssue" is not specific enough for met to code as an inpatient. Please review the question below and answer to the best of your ability. THANK U Query created by: Jaspal Knight on 08/06/2016 11:03 AM RESPONSE TEXT: Excisional debridement of skin, subcutaneous tissues, and fascia Electronically signed by: Tushar Vora MD 09/04/2016 7:11 AM
== END 2016-08-05 17:43 | disposition home or self-care (01) | DRG 854 ==
LOC: PHED 19:07 → PHEDA 21:48 → PH3B 23:17
PROVIDERS: ADMIT Internal Medicine; ATTEND Internal Medicine
PROC: 0JDH0ZZ Extraction of Left Lower Arm Subcutaneous Tissue and Fascia, Open Approach (ICD-10-PCS; 2016-07-21)
PROC: 0KNB0ZZ Release Left Lower Arm and Wrist Muscle, Open Approach (ICD-10-PCS; principal; 2016-07-21 13:48)
PROC: 0KBB0ZZ Excision of Left Lower Arm and Wrist Muscle, Open Approach (ICD-10-PCS; 2016-07-22)
PROC: 0JBH0ZZ Excision of Left Lower Arm Subcutaneous Tissue and Fascia, Open Approach (ICD-10-PCS; 2016-07-24)
PROC: 0KBB0ZZ Excision of Left Lower Arm and Wrist Muscle, Open Approach (ICD-10-PCS; 2016-07-26)
PROC: 0KBB0ZZ Excision of Left Lower Arm and Wrist Muscle, Open Approach (ICD-10-PCS; 2016-07-29)
PROC: 0JBH0ZZ Excision of Left Lower Arm Subcutaneous Tissue and Fascia, Open Approach (ICD-10-PCS; 2016-07-31)
PROC: 05HN33Z Insertion of Infusion Device into Left Internal Jugular Vein, Percutaneous Approach (ICD-10-PCS; 2016-08-02)
DX: A40.0 Sepsis due to streptococcus, group A (principal); L03.114 Cellulitis of left upper limb; D69.6 Thrombocytopenia, unspecified; T79.A12A Traumatic compartment syndrome of left upper extremity, initial encounter; I80.8 Phlebitis and thrombophlebitis of other sites; T83.110A Breakdown (mechanical) of urinary electronic stimulator device, initial encounter; N30.10 Interstitial cystitis (chronic) without hematuria; I10 Essential (primary) hypertension; F32.9 Major depressive disorder, single episode, unspecified; K21.9 Gastro-esophageal reflux disease without esophagitis; F17.210 Nicotine dependence, cigarettes, uncomplicated; F41.9 Anxiety disorder, unspecified; F98.8 Other specified behavioral and emotional disorders with onset usually occurring in childhood and adolescence; S81.801D Unspecified open wound, right lower leg, subsequent encounter; X58.XXXD Exposure to other specified factors, subsequent encounter; N40.0 Benign prostatic hyperplasia without lower urinary tract symptoms; Z98.1 Arthrodesis status; Z88.6 Allergy status to analgesic agent; Z88.5 Allergy status to narcotic agent; Z88.0 Allergy status to penicillin; Z88.2 Allergy status to sulfonamides; D64.9 Anemia, unspecified; K59.00 Constipation, unspecified; R00.0 Tachycardia, unspecified
CPT/HCPCS: 36556; 71020; 71275; 73090; 73201; 73590; 76882; 76937; 77001; 80048; 80053; 80202; 80307; 81001; 82550; 82565; 82607; 83605; 85025; 85652; 86140; 86403; 87015; 87040; 87070; 87102; 87116; 87205; 87206; 88305; 96361; 96374; J0131; J0690; J0692; J0696; J0744; J1100; J1170; J1885; J2175; J2250; J2270; J2370; J2405; J3010; J3370; J7030; J7040; J7050; J7120; Q9967

== ENCOUNTER 2016-12-09 03:08 | Emergency (ER) | payer MEDICARE, MEDICAID ==
[~2016-12-09] VITALS: Ht 170.2 cm; Wt 76.3 kg
[~2016-12-09 03:08] MED LIST changes: +AMIT25TA9 PO; -CYCL1TAB29 PO; +DIAZ10 PO; +OXYB5TAB10 PO
[2016-12-09] MEDS ORDERED: IOHEXOL 350 MG/ML 10 ML VIAL (for RAD DIAG) IVCONTRAST ONE (03:09)
[2016-12-09 03:14] VITALS: BP 114/75; PULSE 91; RESP 18; TEMP 98; O2SAT 98
[2016-12-09] MEDS ORDERED: CARD8TAB2 PO (03:27)
[2016-12-09] MEDS ORDERED: SODIUM CHLOR 0.9% 1000 ML INJ 1,000 ML IV SCH (03:44)
[2016-12-09] MEDS ORDERED: ONDANSETRON HCL 4 MG/2 ML VIAL IVP ONE (03:45)
[2016-12-09] MEDS ORDERED: SODIUM CHLORIDE 0.9% FLUSH 10 ML FLUSH IV FLUSH PRN (03:45)
--- NOTE | 2016-12-09 03:54 | PD ---
HPI Chief Complaint: GI Complaint Time Seen by Provider: 03:26 Travel History International Travel<30 days: No Contact w/Intl Traveler<30days: No Traveled to known affect area: No History of Present Illness HPI The patient is a 51-year-old male who complains of bilateral lower quadrant pain and bright red rectal bleeding that occurred at 8 PM tonight. He does have nausea but no vomiting and he does have diarrhea. He has a history of alcohol abuse but has not drank alcohol in 4 years. He states he got out of [facility] home on July of 2015. He states there was a lot of bleeding and it soaked his shorts with blood. He denies any fever. He still has his appendix and gallbladder. His last last last creatinine was normal in July of this year. PFSH Past Medical History Arthritis: No Asthma: No Autoimmune Disease: No Blood Disorders: No Depression: Yes Heart Rhythm Problems: No Cancer: No Cardiovascular Problems: Yes (HTN) High Cholesterol: No Chest Pain: No Congestive Heart Failure: No COPD: No Cerebrovascular Accident: No Diabetes: No Diminished Hearing: No Endocrine: No Gastrointestinal Disorders: Yes GERD: Yes Genitourinary: Yes (IMPLANTED BLLADDER STIMULATOR) Headaches: Yes Hepatitis: No Hiatal Hernia: No Hypertension: Yes Immune Disorder: No Implanted Vascular Access Dvce: Yes Kidney Stones: No Medical other: Yes (interstitional cystitis) Musculoskeletal: Yes Neurologic: Yes (ADHD) Psychiatric: Yes Reproductive: No Respiratory: No Integumentary: No Immunizations Current: Yes Migraines: No Renal Failure: No Seizures: No Sleep Apnea: No Thyroid Disease: No Ulcer: No Tetanus Vaccination: < 5 Years Influenza Vaccination: Yes PNEUMOCCOCAL Vaccine (Year): 2 Past Surgical History Abdominal Surgery: Yes AICD: No Arteriovenous Shunt: No Body Medical Devices: PLATES, SCREWS IN NECK Cardiac Surgery: No Ear Surgery: No Endocrine Surgery: No Eye Surgery: No Genitourinary Surgery: Yes (interstitional implant) Gynecologic Surgery: No Insulin Pump: No Joint Replacement: No Neurologic Surgery: No Oral Surgery: Yes (tonsillectomy) Pacemaker: No Thoracic Surgery: No Other Surgery: Yes (RT FOOT, LEFT ELBOW, LEFT THUMB,LEFT LEG) Social History Alcohol Use: Yes (SOCIALLY) Tobacco Use: Yes Substance Use: No Allergies-Medications (Allergen,Severity, Reaction): Coded Allergies: methadone (Unverified Allergy, Severe, NAUSEA AND VOMITING AND RASH, 12/09) Sulfa (Sulfonamide Antibiotics) (Unverified Allergy, Unknown, UNKNOWN REACTION, 12/09/16) celecoxib (Unverified Allergy, Unknown, UNKNOWN REACTION, 12/09/16) diclofenac (Unverified Allergy, Unknown, [id number] REACTION, 12/09/16) codeine (Unverified Adverse Reaction, Severe, NAUSEA AND VOMITING, ) penicillin G (Unverified Adverse Reaction, Severe, Rash and nausea, vomiting, 12/09/16) Reported Meds & Prescriptions Reported Meds & Active Scripts Active Reported Cardura (Doxazosin Mesylate) 8 Mg Tab 8 Mg PO DAILY Ditropan (Oxybutynin Chloride) 5 Mg Tab 5 Mg PO Q6HR Valium (Diazepam) 10 Mg Tab 10 Mg PO QID Amitriptyline (Amitriptyline HCl) 25 Mg Tab 25 Mg PO HS Review of Systems Except as stated in HPI: all other systems reviewed are Neg Physical Exam Narrative GENERAL: The patient is alert, oriented 3 in moderate apparent distress with his lower abdominal pain. His vital signs are normal. SKIN: Focused skin assessment warm/dry. HEAD: Atraumatic. Normocephalic. EYES: Pupils equal and round. No scleral icterus. No injection or drainage. ENT: No nasal bleeding or discharge. Mucous membranes pink and moist. NECK: Trachea midline. No JVD. CARDIOVASCULAR: Regular rate and rhythm. No murmur appreciated. RESPIRATORY: No accessory muscle use. Clear to auscultation. Breath sounds equal bilaterally. GASTROINTESTINAL: Abdomen soft, non-tender, nondistended. Hepatic and splenic margins not palpable. MUSCULOSKELETAL: No obvious deformities. No clubbing. No cyanosis. No edema. NEUROLOGICAL: Awake and alert. No obvious cranial nerve deficits. Motor grossly within normal limits. Normal speech. PSYCHIATRIC: Appropriate mood and affect; insight and judgment normal. RECTAL EXAM: No masses or tenderness, stool is bright red. He has a hemorrhoid that is actively bleeding, no thrombosis is present however. This was cauterized with silver nitrate. Data Data Last Documented VS Vital Signs Date Time Temp Pulse Resp B/P (MAP) Pulse Ox O2 Delivery O2 Flow Rate FiO2 12/09/16 06:06 89 18 118/72 (87) 98 Room Air 12/09/16 03:14 98.0 Orders Orders Complete Blood Count With Diff (12/09/16 03:44) Comprehensive Metabolic Panel (12/09/16 03:44) Lipase (12/09/16 03:44) Prothrombin Time / Inr (Pt) (12/09/16 03:44) Act Partial Throm Time (Ptt) (12/09/16 03:44) Urinalysis - C+S If Indicated (12/09/16 03:44) Ct Abd/Pel W Iv Contrast(Rout) (12/09/16 03:44) Iv Access Insert/Monitor (12/09/16 03:44) Ecg Monitoring (12/09/16 03:44) Oximetry (12/09/16 03:44) Ondansetron Inj (Zofran Inj) (12/09/16 03:45) Sodium Chlor 0.9% 1000 Ml Inj (Ns 1000 M (12/09/16 03:44) Sodium Chloride 0.9% Flush (Ns Flush) (12/09/16 03:45) Electrocardiogram (12/09/16 03:44) Silver Nitrate Applicators (Silver Nitra (12/09/16 04:00) Iohexol 350 Inj (Omnipaque 350 Inj) (12/09/16 03:09) Labs Laboratory Tests Test 12/09/16 03:50 12/09/16 05:20 White Blood Count 6.3 TH/MM3 Red Blood Count 3.88 MIL/MM3 Hemoglobin 12.1 GM/DL Hematocrit 34.2 % Mean Corpuscular Volume 88.2 FL Mean Corpuscular Hemoglobin 31.2 PG Mean Corpuscular Hemoglobin Concent 35.3 % Red Cell Distribution Width 13.6 % Platelet Count 129 TH/MM3 Mean Platelet Volume 8.0 FL Neutrophils (%) (Auto) 67.3 % Lymphocytes (%) (Auto) 27.0 % Monocytes (%) (Auto) 4.3 % Eosinophils (%) (Auto) 1.0 % Basophils (%) (Auto) 0.4 % Neutrophils # (Auto) 4.2 TH/MM3 Lymphocytes # (Auto) 1.7 TH/MM3 Monocytes # (Auto) 0.3 TH/MM3 Eosinophils # (Auto) 0.1 TH/MM3 Basophils # (Auto) 0.0 TH/MM3 CBC Comment DIFF FINAL Differential Comment Prothrombin Time 10.1 SEC Prothromb Time International Ratio 0.9 RATIO Activated Partial Thromboplast Time 27.9 SEC Blood Urea Nitrogen 17 MG/DL Creatinine 1.10 MG/DL Random Glucose 109 MG/DL Total Protein 7.0 GM/DL Albumin 3.6 GM/DL Calcium Level 7.9 MG/DL Alkaline Phosphatase 160 U/L Aspartate Amino Transf (AST/SGOT) 22 U/L Alanine Aminotransferase (ALT/SGPT) 26 U/L Total Bilirubin 0.2 MG/DL Sodium Level 138 MEQ/L Potassium Level 3.4 MEQ/L Chloride Level 103 MEQ/L Carbon Dioxide Level 27.0 MEQ/L Anion Gap 8 MEQ/L Estimat Glomerular Filtration Rate 70 ML/MIN Lipase 91 U/L Urine Color STRAW Urine Turbidity CLEAR Urine pH 6.5 Urine Specific [place] GREATER THAN 1.035 Urine Protein NEG mg/dL Urine Glucose (UA) NEG mg/dL Urine Ketones NEG mg/dL Urine Occult Blood NEG Urine Nitrite NEG Urine Bilirubin NEG Urine Leukocyte Esterase NEG Urine Squamous Epithelial Cells 0-5 /hpf Microscopic Urinalysis Comment CULT NOT INDICATED MDM Medical Decision Making Medical Screen Exam Complete: Yes Emergency Medical Condition: Yes Medical Record Reviewed: Yes Interpretation(s) The CT abdomen/pelvis shows no acute change. There are some inguinal varicosities. The CBC is normal except for hemoglobin of 12.1 and hematocrit of 34.2. The complete metabolic profile shows a potassium of 3.4 and alkaline phosphatase of 160 and GFR of 70 but is otherwise unremarkable. The lipase is normal. The urinalysis shows specific gravity greater than 1.035 but is otherwise normal and culture is not indicated. The coagulation profile is normal. Differential Diagnosis Hemorrhoidal bleeding, rectal abscess, colitis, appendicitis, diverticulitis, diverticular bleeding, electrolyte disorder, anemia, coagulopathy, urinary tract infection Narrative Course The patient has abdominal pain etiology undetermined. The CT scan did not show any intra-abdominal acute pathology. The patient does have a bleeding hemorrhoid which was cauterized. At this time he is not bleeding. Procedures Procedure Narrative The hemorrhoid on the left was not thrombosed and was cauterized was over nitrate stick. The patient experienced burning at the site but the bleeding was stopped. Diagnosis Primary Impression: Bleeding hemorrhoid Additional Impression: Abdominal pain of unknown etiology Additional Instructions: As we discussed, do not drink alcohol or drive on the Lortab 5 or the prochlorperazine. Follow-up this week with a primary care physician. If worse , you are welcome to return to emergency department for reevaluation. Med/Other Pt SpecificInfo: Prescription(s) given Scripts Hydrocodone-Acetaminophen (Lortab) 5-325 Mg Tab 1 TAB PO Q6H Y for PAIN, #15 TAB 0 Refills Prov: Edwin Quispe MD 12/09/16 Prochlorperazine Maleate (Prochlorperazine Maleate) 10 Mg Tab 10 MG PO Q6H Y for NAUSEA OR VOMITING, #28 TAB 0 Refills Prov: Edwin Quispe MD 12/09/16 Disposition: 01 DISCHARGE HOME Condition: Stable Edwin Quispe MD Dec 09, 2016 03:54
[2016-12-09 03:56] VITALS: RESP 18; O2SAT 98
[2016-12-09] MEDS ORDERED: SILVER NITR/POTASSIUM NITRATE APPLICATORS TOPICAL ONE (04:00)
[2016-12-09 04:10] LABS: AUTOMATED NEUTROPHIL # 4.2 TH/MM3 (1.8-7.7); BASOPHIL % 0.4 % (0.0-2.0); EOSINOPHIL # 0.1 TH/MM3 (0-0.4); HEMATOCRIT 34.2 % (39.0-51.0); HEMO FLAGS DIFF FINAL; LYMPHOCYTE # 1.7 TH/MM3 (1.0-4.8); MEAN CELL VOLUME 88.2 FL (80.0-100.0); MEAN CORPUSCULAR HEMOGLOBIN 31.2 PG (27.0-34.0); MEAN CORPUSCULAR HGB CONC 35.3 % (32.0-36.0); MONO % 4.3 % (0.0-8.0); NEUT % 67.3 % (16.0-70.0); PLATELET COUNT 129 TH/MM3 (150-450); RED BLOOD COUNT 3.88 MIL/MM3 (4.50-5.90); RED CELL DISTRIBUTION WIDTH 13.6 % (11.6-17.2); WHITE BLOOD COUNT 6.3 TH/MM3 (4.0-11.0)
[2016-12-09 04:16] LABS: CHLORIDE 103 MEQ/L (98-107); POTASSIUM 3.4 MEQ/L (3.5-5.1); SODIUM (NA) 138 MEQ/L (136-145)
[2016-12-09 04:20] LABS: ANION GAP 8 MEQ/L (5-15); BLOOD UREA NITROGEN 17 MG/DL (7-18)
[2016-12-09 04:21] LABS: APTT (PATIENT) 27.9 SEC (24.3-30.1); INTERNATIONAL NORMALIZED RATIO 0.9 RATIO; PROTHROMBIN TIME - PATIENT 10.1 SEC (9.8-11.6)
[2016-12-09 04:23] LABS: ALT (GPT) 26 U/L (12-78); AST (GOT) 22 U/L (15-37); GLOMERULAR FILTRATION RATE 70 ML/MIN (>89)
[2016-12-09 04:24] LABS: TOTAL BILIRUBIN ADULT 0.2 MG/DL (0.2-1.0)
[2016-12-09 04:26] LABS: ALKALINE PHOSPHATASE 160 U/L (45-117)
--- NOTE | 2016-12-09 05:06 | RADRPT ---
EXAM DATE/TIME: 12/09/2016 04:37 [facility] COMPARISON: No previous studies available for comparison. INDICATIONS : Bilateral lower quadrant pain. Rectal bleeding. IV CONTRAST: 100 cc Omnipaque 350 (iohexol) IV ORAL CONTRAST: No oral contrast ingested. RADIATION DOSE: 9.78 CTDIvol (mGy) MEDICAL HISTORY : Hypertension. Gastroesophageal reflux disease. SURGICAL HISTORY : Implanted bladder stimulator ENCOUNTER: Initial ACUITY: 1 day PAIN SCALE: 8/10 LOCATION: Bilateral lower quadrant TECHNIQUE: Volumetric scanning of the abdomen and pelvis was performed. Using automated exposure control and ad justment of the mA and/or kV according to patient size, radiation dose was kept as low as reasonably achievable to obtain optimal diagnostic quality images. DICOM format image data is available electro nically for review and comparison. FINDINGS: Examination of the lung bases demonstrates no abnormality. No pleural fluid is identified. No pulmona ry nodules are present. The liver and spleen are free of focal defects. The gallbladder and pancreas demonstrate no abnormality. The adrenal glands are normal. The kidneys demonstrate no evidence of tony id renal mass or hydronephrosis. No free fluid or abdominal masses are identified. No para-aortic hanna nopathy is seen. A retroaortic left renal vein is present which can be seen as a normal variation. The prostate gland is enlarged impinging on the bladder base. There are varicosities in the inguinal regions bilaterally. There is surgical clips along left pelvic sidewall likely related to previous no de dissection. This may be the etiology of the varices The bladder appears normal. No wall thickening or intraluminal masses are identified. A staple line is present in the sigmoid colon. CONCLUSION: 1. No evidence of acute abdominal or pelvic process. No masses are identified. 2. Prominent inguinal varices which be related to venous obstruction Victoriano Pak MD on December 09, 2016 at 4:57 Board Certified Radiologist. This report was verified electronically.
[2016-12-09 05:26] LABS: BLOOD, URINE NEG (NEG); GLUCOSE,URINE NEG (NEG); KETONE, URINE NEG (NEG); NITRITE,URINE NEG (NEG); PH, URINE 6.5 (5.0-8.5)
[2016-12-09] MEDS ORDERED: ONDANSETRON HCL 4 MG/2 ML VIAL IV ONE (05:30)
[2016-12-09 05:49] LABS: URINE COLOR STRAW (YELLW/STRAW)
[2016-12-09 05:51] LABS: COMMENT (UR) CULT NOT INDICATED; CULTURE IF INDICATED CULT NOT INDICATED; SQUAMOUS EPITHELIAL CELL URINE 0-5 /hpf (0-5)
[2016-12-09 06:06] VITALS: BP 118/72; PULSE 89; RESP 18; O2SAT 98
[2016-12-09] MEDS ORDERED: HYDR-3533 PO (06:45)
[2016-12-09] MEDS ORDERED: PROC10TA PO (06:45)
--- NOTE | 2016-12-09 21:56 | EKG ---
Date Performed: 12/09/2016 Time Performed: 04:08:05 PTAGE: 51 years EKG: Sinus rhythm WITH SINUS ARRHYTHMIA POSSIBLE LEFT ATRIAL ENLARGEMENT BORDERLINE ECG PREVIOUS TRACING : 02/28/2016 04.14 Compared to prior tracing no significant change DOCTOR: Kimberly Palencia Interpretating Date/Time 12/09/2016 21:56:01
== END 2016-12-09 06:58 | disposition home or self-care (01) ==
LOC: PHED 03:08
DX: K64.9 Unspecified hemorrhoids (principal); K62.5 Hemorrhage of anus and rectum; I10 Essential (primary) hypertension; Z72.0 Tobacco use
CPT/HCPCS: 12001; 74177; 80053; 81001; 83690; 85025; 85610; 85730; 93005; 96361; 96374; 99285; J2405; J7030; Q9967